=== PATIENT | female | born 1985 | race Caucasian/White ===

== ENCOUNTER 2022-05-06 08:15 | Outpatient (RCR) | payer BC, SELFPAY | END 2022-07-06 14:36 | disposition home or self-care (01) | PROVIDERS: Visit Provider Physician Assistant Medical | DX: S93.601S Unspecified sprain of right foot, sequela (principal); Z51.89 Encounter for other specified aftercare | CPT/HCPCS: 97162; 97530; 97535 ==

== ENCOUNTER 2023-07-18 11:03 | Emergency (ER) | payer BC, SELFPAY ==
[2023-07-18 11:32] VITALS: BP 136/82; PULSE 88; RESP 18; TEMP 36.9; O2SAT 99; BMI 19.0
[2023-07-18 12:26] LABS: PCR FLU A Negative PCR FLU A (Negative); PCR FLU B Negative PCR FLU B (Negative); PCR RSV Negative PCR RSV (Negative); SARS PCR* Negative SARS-CoV-2 (Negative)
--- NOTE | 2023-07-18 13:14 | XR_ITS ---
Final Report Patient: CECILIA WOLFE Facility:?[facility] Patient ID:?[id number] Site Patient ID:?[id number]. Site :?[id number] Study:?XRay Chest 2V-07/18/2023 1:46:39 PM Ordering Physician:?DR. POOLE Final Report: INDICATION: Headache. Migraine. Pain. COMPARISON: None TECHNIQUE: PA and lateral views of the chest were acquired FINDINGS: TUBES AND LINES: None. HEART AND MEDIASTINUM: The heart size is normal. The mediastinal contour appears normal for patient age. LUNGS AND PLEURAL SPACES: The lungs appear normal.The pleural spaces are unremarkable. OSSEOUS STRUCTURES: Scoliosis IMPRESSION: No evidence of active pulmonary disease. Scoliosis. Dictated by Vinicius Gutierrez MD @ 07/18/2023 2:16:03 PM (Electronic Signature)
[2023-07-18 14:00] VITALS: BP 128/87; PULSE 92; RESP 16; TEMP 36.8; O2SAT 99
--- NOTE | 2023-07-18 14:00 | ED.GENADULT ---
HPI - General Adult General Date Seen: 07/18/23 Chief complaint: Headache/Migraine Stated complaint: bodyaches,headache,sore throat, Time Seen by Provider: 07/18/23 12:43 Source: patient Mode of arrival: ambulatory Limitations: no limitations History of Present Illness HPI narrative: Patient is a 38-year-old female presenting to emergency department for multiple complaints. She states over the past week she has been having shortness of breath, body aches, headache, sore throat. Denies chest pain, abdominal pain, nausea/vomiting, weakness, numbness. Is not aware of any sick contacts. Symptoms have not been improving over the past week N/C states that back she may getting worse so she called to set up primary care appointment was told to come to the emergency department for evaluation. Has not had any fevers but has felt warm. Denies diarrhea or constipation. Denies having symptoms like this before. No other medical problems noted. Related Data Home Medications Medication Instructions Recorded Confirmed amitriptyline 25 mg tablet 25 mg PO QPM 07/18/23 07/18/23 Allergies Allergy/AdvReac Type Severity Reaction Status Date / Time ssri's Allergy Mild rash Uncoded 06/07/22 13:50 walnuts Allergy Mild burning Uncoded 07/18/23 11:38 and sores on tongue Review of Systems Status of ROS: Reports: 10 or more systems reviewed and unremarkable except as noted in History and below [facility] Medical History Lyme disease of inner ear ?A69.29 - Other conditions associated with Lyme disease (ICD-10) ?H83.8X9 - Other specified diseases of inner ear, unspecified ear (ICD-10) Right foot injury ?S99.921A - Unspecified injury of right foot, initial encounter (ICD-10) Family History Maternal Grandmother Heart disease Paternal Grandmother Stroke Family/Other High cholesterol Maternal Grandfather Diabetes Bladder cancer Father FH: mental illness Family/Other Otpcabq-Jjnit-Eqblp disease Social History Narrative: 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 Nonsmoker. No alcohol use. No concerns with safety or abuse. . Smoking Status: Never smoker Little interest or pleasure in doing things: not at all Feeling down, depressed, or hopeless: several days Exam Narrative: Exam Narrative: Const: Well-nourished, Well-developed, in mild distress Eyes: PERRL, no conjunctival injection, and symmetrical lids HENT: Atraumatic external nose and ears. Moist mucous membranes. Neck: Symmetric, trachea midline, No thyromegaly. CVS: RRR, No murmurs or gallops. Peripheral pulses 2+ and equal in all extremities RESP: Unlabored respiratory effort. Clear to auscultation bilaterally. GI: Nontender/Nondistended, No rebound or guarding. MSK:Extremities w/o deformity, Normal Active ROM Skin: Warm, Dry. No rashes or lesions. Neuro: Normal Muscle tone, No focal neurological deficits. Psych: Awake, Alert, & Oriented x3. Appropriate mood and affect. Const: Vital Signs, click to edit/add: Vital Signs - 24 hr 07/18/23 11:32 Temperature 98.5 F Pulse Rate [Right Pulse Oximeter] 88 Respiratory Rate 18 Blood Pressure [Ri ght Upper Arm] 136/82 Pulse Oximetry 99 Oxygen Delivery Me thod Room Air Course Vital Signs Vital signs: Initial Vital Signs Temperature 98.5 F 07/18/23 11:32 Temperature Source Temporal Artery Scan 07/18/23 11:32 Pulse Rate 88 07/18/23 11:32 Respiratory Rate 18 07/18/23 11:32 Blood Pressure 136/82 07/18/23 11:32 Blood Pressure Mean 100 07/18/23 11:32 Blood Pressure Position Sitting 07/18/23 11:32 Pulse Oximetry 99 07/18/23 11:32 Oxygen Delivery Method Room Air 07/18/23 11:32 Vital Signs Temperature 98.5 F 07/18/23 11:32 Pulse Rate 88 07/18/23 11:32 Respiratory Rate 18 07/18/23 11:32 Blood Pressure 136/82 07/18/23 11:32 Pulse Oximetry 99 07/18/23 11:32 Oxygen Delivery Method Room Air 07/18/23 11:32 Temperature 98.5 F 07/18/23 11:32 Pulse Rate 88 07/18/23 11:32 Respiratory Rate 18 07/18/23 11:32 Blood Pressure 136/82 07/18/23 11:32 Pulse Oximetry 99 07/18/23 11:32 Oxygen Delivery Method Room Air 07/18/23 11:32 Medical Decision Making MDM Narrative Medical decision making narrative: Patient is a 38-year-old female presenting to the emergency department for what sounds to be viral symptoms. COVID test flu/RSV test was ordered and were negative. She is having a much of the non concerning symptoms we will do a chest x-ray to rule out pneumonia. This was reviewed by myself and the radiologist showing no acute abnormalities. Patient had normal the is stable vital signs throughout her time emergency department and I do not believe further intervention is necessary. She is PERC negative so PE is very unlikely. Symptoms seem much more likely related to viral syndrome rather than ACS and and under not believe workup is necessary.Patient be discharged home she is agreeable to this plan. Lab Data Labs: Lab Results 07/18/23 Range/Units 11:39 SARS-CoV-2 (PCR) Negative SARS-CoV-2 (Negative) Influenza Type A (PCR) Negative PCR FLU A (Negative) Influenza Type B (PCR) Negative PCR FLU B (Negative) RSV (PCR) Negative PCR RSV (Negative) Imaging Data Chest x-ray: Radiologist's impression: No evidence of active pulmonary disease. Scoliosis. Dictated by Vinicius Gutierrez MD @ 07/18/2023 2:16:03 PM Discharge Plan Discharge Clinical Impression: Acute viral syndrome Patient Disposition: Home, Self-Care Condition: Stable Instructions: Viral Syndrome (ED) Additional Instructions: Return to emergency department for new or worsening symptoms. Considering the length of your symptoms has unlikely your still contagious at this time. Prescriptions: No Action amitriptyline 25 mg tablet 25 mg PO QPM Follow Up/Referrals: Ana Ro PA-C [Primary Care Provider] - Stand Alone Forms: [employer] Info Instructions
== END 2023-07-18 14:55 | disposition home or self-care (01) ==
PROVIDERS: Emergency Provider Student in an Organized Health Care Education/Training Program; PCP Physician Assistant
DX: B34.9 Viral infection, unspecified (principal)
CPT/HCPCS: 71046; 87631; 99282; 99283

== ENCOUNTER 2024-06-20 15:00 | Emergency (ER) | payer BC, SELFPAY ==
[2024-06-20] VITALS (8 sets, daily range): BP systolic 115–118; BP diastolic 74–80; PULSE 89–98; RESP 16–18; TEMP 37.6; O2SAT 99–100; BMI 19.8
--- OUTSIDE RECORDS SUMMARY | 2024-06-20 15:02 | XMS_ITS | Encounter Summary ---
Author Organization [facility] Address [address] [place] [id number] Care Team Providers Care Tobacco Drying Machine Operator Name Role Phone Unavailable Primary Care Provider Unavailabl e Reason for Visit * Reason Comments ERRONEOUS ENTRY Encounter Details Date Type Department Care Team (Late st Contact Info) Description 05/07/2024 Telephone [place] [facility] [place] [address] Elli Warren MD [address] [place] [address] ERRONEOUS ENTRY Social History Tobacco Use Types Packs/Day Years Used Date Smoking Tobacco: Never Passive Smoke Exposure: Never Smokeless Tobacco: Never Alcohol Use Standard Drinks/Week Comments Not Currently 0 (1 standard drink = 0.6 oz pur e alcohol) Sex and Gender Information Value Date Recorded Sex Assigned at Not on file Gender Identity Not on file Sexual Orientation Not on file documented as of this encounter Nursing Notes * Vaishnavi Finley - 05/07/2024 1:45 PM CST Billing Inquiry: Please contact the Business Office regarding clinic charges and questions on your billing statementat Please contact the for a detailed estimate of your rxj-[id number] costs for upcoming care services. For more information about billing and financial assistance, go to: [email or web address] FOOTBALL COACH documented in this encounter Plan of Treatment Not on file documented as of this encounter Visit Diagnoses Not on filedocumented in this encounter
--- OUTSIDE RECORDS SUMMARY | 2024-06-20 15:02 | XMS_ITS | Encounter Summary ---
Author Organization [facility] Address [address] [place] [address] Care Team Providers Care Heat Treater Helper Name Role Phone Unavailable Primary Care Provider Unavailabl e Reason for Visit * Reason Comments Prior Authorization For Procedure Encounter Details Date Type Department Care Team (Late st Contact Info) Description 05/07/2024 Telephone [place] [facility] [address] [place] [id number] Elli Warren MD [address] [place], [place] [id number] Prior Authorization For Procedure Social History Tobacco Use Types Packs/Day Years [...] as of this encounter Nursing Notes * Anna Hubbard RN - 05/08/2024 1:55 PM CST Returned call to pt. CPT codes given for scheduled procedure: 52967 for the excision of endometriosis and either 14927(uterus 250g or less) or 51776 (uterus greater than 250g) for TLH w/ BS. All questions answered. Mirtha has no further questions or concerns at this time. ALEXUS, RN AH SUPPLY CHAIN LOGISTICS MANAGER Triage 05/08/24 2:03 PM OTECHNICAL SPECIALIST * Anna Hubbard RN - 05/07/2024 2:52 PM CST Pt is scheduled for LAPAROSCOPIC HYSTERECTOMY; BILATERAL SALPINGECTOMY; POSSIBLE EXCISION OF ENDOMETRIOSIS; CYSTOSCOPY. Requests CPT codes to send to insurance. Routing encounter to Coding. SEGUNDO VAUGHAN AHOB/SPORTS COMMENTATOR Triage 05/07/24 2:53 PM OTECHNICAL SPECIALIST * Vaishnavi Finley - 05/07/2024 2:19 PM CST Prior Authorizations What prior authorization is needed? Patient is looking for the procedure code(s) for her procedure on 05/16/24. Insurance Carrier: [facility] , [facility] [id number] Pharmacy Insurance Carrier (if different from above): - For a medication PA, patient would like it filled at the pharmacy listed in Meds & Orders. Additional comments (related to the above concern): Preferred communication method: Phone Call. Is it okay to leave a detailed message on your voicemail? Yes or MyChart Is there anything else I can help you with today? OTECHNICAL SPECIALIST documented in this encounter Plan of Treatment Not on file documented as of this encounter Visit Diagnoses Not on filedocumented in this encounter
--- OUTSIDE RECORDS SUMMARY | 2024-06-20 15:02 | XMS_ITS | Encounter Summary ---
Author Organization [facility] Address [address] [address] Care Team Providers Care Real Estate Legal Assistant Name Role Phone Ankita Shannon MD Primary Care Provider [phone] Reason for Visit * Auth/Cert (Routine) Specialty Diagnoses / Procedures Referred By Adonis alejo Referred To Contact Diagnoses Pelvic pain in female . Procedures LAPAROSCOPIC HYSTERECTOMY; BILATERAL SALPINGECTOMY; POSSIBLE EXCISION OF ENDOMETRIOSIS; CYSTOSCOPY Referral ID Status Reason Start Date Expiration Date Visits Re quested Visits Authorized [id number] 1 1 Encounter Details Date Type Department Care Team (Latest Contact Info) Description 05/16/2024 5:53 AM MAINS AND SERVICE SUPERVISOR - 05/16/2024 1:30 PM MAINS AND SERVICE SUPERVISOR Hospital Encounter RH Operating Room [address] [place] [id number] Elli Warren MD [address] [place] [address] Pelvic pain in female Discharge Disposition: Home Social History Tobacco Use Types Packs/Day Years [...] on file documented as of this encounter Last Filed Vital Signs Vital Sign Reading Time Taken Comments Blood Pressure 119/82 05/16/2024 1:06 PM MAINS AND SERVICE SUPERVISOR Pulse 112 05/16/2024 1:06 PM MAINS AND SERVICE SUPERVISOR Temperature 36.8 C (98.3 F) 05/16/2024 1:06 PM MAINS AND SERVICE SUPERVISOR Respiratory Rate 16 05/16/2024 11:10 AM MAINS AND SERVICE SUPERVISOR Oxygen Saturation 97% 05/16/2024 1:06 PM MAINS AND SERVICE SUPERVISOR Inhaled Oxygen Concentration - - Weight 50.8 kg (112 lb) 05/16/2024 6:43 AM MAINS AND SERVICE SUPERVISOR Height 160 cm (5' 3) 05/16/2024 6:43 AM MAINS AND SERVICE SUPERVISOR Body Mass Index 19.84 05/16/2024 6:43 AM MAINS AND SERVICE SUPERVISOR documented in this encounter Discharge Instructions * Discharge Instr - Other Orders* Pascale Galeas RN - 05/16/2024 10:13 AM MAINS AND SERVICE SUPERVISOR CONTACT INFORMATION If it is after hours call the Careline at [phone]. [facility] Surgery: Please contact your clinic during regular business hours or in case of anEmergency dial 911. [place]: [phone] ANESTHESIA Today you received General/Minor Sedation: Rest in bed the day of surgery, then advance to normal activity the next day. Let's talk about what to expect after receiving anesthesia. After anesthesia, reactions are slow and some patients may become lightheaded or dizzy. The following safety precautions are recommended: Don't drink alcoholic beverages. Don't use any other drugs than those ordered by your physician. Don't drive a car or any other vehicle. Don't work with machinery or power tools. Be careful walking. Be extra careful walking up and down stairs. DANGER SIGNALS I should call my clinic if I experience any of the following: Temperature higher than 101 degrees Fahrenheit Redness that has spread Persistent bleeding Green/yellow/infected, foul smelling drainage from incision site Reaction to new medications Severe pain Swelling S AND SERVICE SUPERVISOR * Discharge Instr - Non RX Meds* Pascale Galeas RN - 05/16/2024 11:56 AM MAINS AND SERVICE SUPERVISOR You were given 15mg IV Toradol during your procedure at 9:30am. Toradol is in the same family as Ibuprofen therefore, Do Not start Ibuprofen until after 3:30pm. S AND SERVICE SUPERVISOR documented in this encounter Medications at Time of Discharge Medication Sig Dispensed Refills Start Date End Date acetaminophen (TYLENOL) 325 MG tablet Take 1-2 Tablets (325-650 mg) by mouth every 6 hours as needed for Pain. Maximum of 12 tablets per day 100 Tablet 05/16/2024 amitriptyline (ELAVIL) 75 MG tablet Take 1 Tablet (75 mg) by mouth daily. docusate sodium (COLACE) 100 MG capsule Take 1 Capsule (100 mg) by mouth two times a day for the first week postop, to avoid constipation. Take as needed after one week. 100 Capsule 05/16/2024 famotidine (PEPCID) 40 MG tablet Take 1 Tablet (40 mg) by mouth. 04/09/2024 ondansetron (ZOFRAN-ODT) [address] 1 Tablet (4 mg) under tongue every 8 hours as needed. 04/02/2024 oxyCODONE (ROXICODONE) 5 MG immediate release tablet Take 1 Tablet (5 mg) by mouth every 6 hours as needed for pain not relieved by acetaminophen. 8 Tablet 05/16/[address] (PROTONIX) 40 MG tablet Take 1 Tablet (40 mg) by mouth. 04/09/2024 senna (SENNA LAXATIVE) 8.6 MG tablet Take 1 Tablet by mouth daily as needed for Constipation. 40 Tablet 05/16/2024 sucralfate (CARAFATE) 1 g tablet Take 1 Tablet (1 g) by mouth 4 times a day. vitamin b complex-c (AKA SURBEX-T) capsule Take 1 Capsule by mouth daily. documented as of this encounter Progress Notes * Elli Warren MD - 05/16/2024 1:50 PM CST LITHARGE SUPERVISOR Postop Note Mirtha is feeling better than expected after surgery today. Feels ready to be home for recovery. No nausea or difficulty ambulating. BP 119/82 Pulse (!) 112 Temp 98.3 ??F (36.8 ??C) (Oral) Resp 16 Ht 5' 3 (1.6 m) Wt 50.8 kg (112 lb) SpO2 97% BMI 19.84 kg/m?? Well appearing, dressed and sitting in chair Discussed findings: stage I endometriosis, with 2-3 lesions visible on bilateral uterosacral ligaments and overlying ureter (not removed due to proximity of ureter). Discharge home for same-day surgery recovery. Has tylenol for pain control and PRN oxycodone (avoiding NSAIDs due to gastritis). Daily colace, with PRN senna. Follow up by phone next week with pathology results. Has in person f/u in 4 weeks. Elli Warren MD S AND SERVICE SUPERVISOR documented in this encounter Procedure Notes * Elli Warren MD - 05/16/2024 11:14 AM CST [facility] Operative Note Surgery Date: 05/16/2024 Surgeons and Role: * Elli Warren MD - Primary * Leticia Zepeda MD - Assisting * Wil Moya DO - Resident - Assisting Pre-op Diagnosis: Severe dysmenorrhea Abnormal uterine bleeding Post-op Diagnosis: Same Same Procedures with associated lateralities: Procedure(s) (LRB): LAPAROSCOPIC HYSTERECTOMY; BILATERAL SALPINGECTOMY; CYSTOSCOPY (Bilateral) EBL: 10ml IV fluids: 800 ml Urine output: 225 ml Specimens: ID Type Source Tests Collected by Time Destination 1 : Right Fallopian tube Tissue Fallopian Tube, right SURGICAL PATHOLOGY Elli Warren MD 05/16/2024 0846 2 : Left Fallopian Tube Tissue Fallopian Tube, left SURGICAL PATHOLOGY Elli Warren MD 05/16/2024 0846 3 : uterus and cervix Tissue Uterus SURGICAL PATHOLOGY Elli Warren MD 05/16/2024 0913 Complications / Findings: normal external genitalia, vagina and cervix. Normal uterus, fallopian tubes and ovaries. Endometriosis lesions present on bilateral uterosacral ligaments. Hemostatic cuff and pedicles at end of case. Cystoscopy with bilateral Uos jets. Indications: Mirtha Garcia is a 39 y.o. with heavy menstrual bleeding, and concerns for endometriosis. Dysmenorrhea symptoms were somewhat improved with oral contraceptives, but were still interferingwith work. Due to gastritis and severe reflux, oral NSAIDs were no longer an option to manage menstrual pain. Diagnostic laparoscopy was discussed. After counseling, the patient opted for definitive management with total laparoscopic hysterectomy and bilateral salpingectomy, as well as excision of endometriosis lesions if present. The risks, benefits, and alternatives were discussed with the patient, and she desired to proceed. Consent form and hysterectomy acknowledgement form signed. Findings: Exam under anesthesia revealed a normal sized, retroverted, mobile uterus. No adnexal masses palpable. On laparoscopy, there was no evidence of injury from abdominal entry. Normal upper abdominal survey. Normal uterus. Normal ovaries and fallopian tubes bilaterally. Endometriosis lesions present on bilateral uterosacral ligaments. Cystoscopy revealed intact bladder dome without injury or sutures and efflux from bilateral ureteral orifices. Surgical sites hemostatic at end of case. Procedure details: The patient was brought to the operating room where general anesthesia was induced with SCDs in place for DVT prophylaxis. She was placed in the dorsal lithotomy position with feet in David stirrups.Exam under anesthesia was performed with the findings noted above. The patient was prepped and draped in the normal sterile fashion. A surgical time out was completed. A klein catheter was placed. A sterile speculum was placed in the vagina and the cervix visualized. The cervix was serially dilated. The V-Care uterine manipulator was placed in the standard fashion. Attention was then turned to the abdomen. The umbilicus was everted, and a 5 mm stab incision was made. A 5 mm trocar was placed using the VisiPort under direct visualization. The abdomen was then insufflated to a maximum pressure of 15 mmHg. The laparoscope was placed, and survey of the abdomen revealed the findings noted above. No trauma from entry was noted. The patient was placed in steep Trendelenburg position and two additional ports were placed in the left and right lower quadrants of 5 mm and 5 mm respectively under direct visualization. Using an atraumatic grasper the bowels were swept out of the pelvis. Bilateral ureters were identified and noted to be well away from the area of planned dissection. Focus was directed to the right side of the pelvis. The right fallopian tube was resected to the uterine cornua by taking serial bites along the underlying mesosalpinx with the Ligasure. The round ligament was transected using the Ligasure and the anterior leaf of the broad ligament was transected medially to the level of the bladder reflection. The right uteroovarian ligament was transected withthe Ligasure and the broad ligament was taken down to the level of the uterine artery. Focus was turned to the left side of the pelvis. The left fallopian tube was resected to the uterine cornua by taking serial bites along the underlying mesosalpinx with the Ligasure. The round ligament was transected using the Ligasure and the anterior leaf of the broad ligament was transected medially. The bladder flap was developed by dissecting the bladder away from the lower uterine segment and cervix using with Ligasure. The left uteroovarian ligament was transected with the Ligasure and the broad ligament was taken down to the level of the uterine artery. The uterine arteries were skeletonized, cauterized, and transected bilaterally. The uterine arteries were then further dissected away from of the cervix with the Ligasure device by transecting the cardinal ligaments from the cervix to a level just past the cervical cup. Colpotomy was performed with monopolar cautery. The detached cervix, uterus, bilateral fallopian tubes were removed from the vagina. A vaginal occluder balloon was placed in the vagina to maintain pneumoperitoneum. The blood was suctioned from the pelvic floor and the the vaginal cuff was closed with V-Loc suture using the EndoStitch suture device. All pedicles were reviewed and noted to be hemostatic. The klein catheter was removed and a cystoscopy was performed. Efflux was seen from bilateral ureteral orifices and there was no evidence of bladder injury. The cystoscope was removed and the klein was not replaced. Attention was turned back to the abdomen. The fascia of the 10 mm port site was closed with 0 Vicryl suture using the Pawan-Jarad device. All instruments were removed from the abdominal cavity and the abdomen deflated. The skin incisions were re-approximated with 4-0 Monocryl and sterile dressings applied. The patient tolerated the procedure well. All needle and sponge counts were correct. Patient was successfully extubated. There were no complications with the procedure. Dr. Zepeda was present to assist as no qualified resident was available. Dr. Zepeda assisted with placement of uterine manipulator, visualization during the surgical procedure, and the cystoscopy. Elli Warren MD S AND SERVICE SUPERVISOR * Wil Moya DO - 05/16/2024 9:37 AM CST [facility] Brief Operative Progress Note Surgery Date: 05/16/2024 Surgeons and Role: * Elli Warren MD - Primary * Leticia Zepeda MD - Assisting * Wil Moya DO - Resident - Assisting * No visitors entered * Pre-op Diagnosis: * Pelvic pain in female [R10.2] Post-op Diagnosis: Post-Op Diagnosis Codes: * Pelvic pain in female [R10.2] Procedures with associated lateralities: Procedure(s) (LRB): LAPAROSCOPIC HYSTERECTOMY; BILATERAL SALPINGECTOMY; CYSTOSCOPY (Bilateral) EBL: 10 Specimens: ID Type Source Tests Collected by Time Destination 1 : Right Fallopian tube Tissue Fallopian Tube, right SURGICAL PATHOLOGY Elli Warren MD 05/16/2024 0846 2 : Left Fallopian Tube Tissue Fallopian Tube, left SURGICAL PATHOLOGY Elli Warren MD 05/16/2024 0846 3 : uterus and cervix Tissue Uterus SURGICAL PATHOLOGY Elli Warren MD 05/16/2024 0913 Complications / Findings: normal external genitalia, vagina and cervix. Normal uterus, fallopian tubes and ovaries. Endometriosis lesions present on bilateral uterosacral ligaments. Hemostatic cuff and pedicles at end of case. Cystoscopy with bilateral Uos jets. Wil Moya D.O. M.A. N TOOTH INSPECTOR PGY-3 05/16/24 9:38 AM S AND SERVICE SUPERVISOR documented in this encounter Plan of Treatment Not on file documented as of this encounter Procedures Procedure Name Priority Date/Time Associated Diagnosis Comments SURGICAL PATHOLOGY Routine 05/16/2024 8: 46 AM MAINS AND SERVICE SUPERVISOR Pelvic pain in female LAPAROSCOPIC HYSTERECTOMY (SDEX) Same Day Recovery 05/16/2024 7:30 AM MAINS AND SERVICE SUPERVISOR Pelvic pain in female POCT URINE Routine 05/16/2024 7:03 AM MAINS AND SERVICE SUPERVISOR GLUCOSE, WHOLE BLOOD POCT Routine 05/16/2024 6:59 AM MAINS AND SERVICE SUPERVISOR BT SECOND DRAW Routine 05/16/2024 6:49 AM MAINS AND SERVICE SUPERVISOR TYPE AND SCREEN STAT 05/16/2024 6:41 AM MAINS AND SERVICE SUPERVISOR ANTIBODY SCREEN STAT 05/16/2024 6:41 AM MAINS AND SERVICE SUPERVISOR BLOOD TYPE STAT 05/16/2024 6:41 AM MAINS AND SERVICE SUPERVISOR HEMOGLOBIN, BLOOD STAT 05/16/2024 6:4 1 AM MAINS AND SERVICE SUPERVISOR documented in this encounter Results * Surgical Path (05/16/2024 8:46 AM MAINS AND SERVICE SUPERVISOR) Case Report Surgical Pathology Case: [id number] Authorizing Provider: Elli Warren MD Collected: 05/16/2024 0846 Ordering Location: Operating Room Received: 05/16/2024 0919 Pathologist: Radha Simms MD Specimens: A) - Fallopian Tube, right, Right Fallopian tube B) - Fallopian Tube, left, Left Fallopian Tube C) - Uterus, uterus and cervix 05/21/2024 3:34 PM [facility] FINAL DIAGNOSIS A. Fallopian tube, right, right salpingectomy: Fallopian tube with no diagnostic abnormality B. Fallopian tube, left, left salpingectomy: Fallopian tube with benign paratubal cyst C. Uterus and cervix, hysterectomy: Uterus with inactive endometrium, benign endometrial polyp, leiomyoma, and changes suggestive of focal serosal endometriosis Cervix with Nabothian cysts 05/21/2024 3:34 PM [facility] Clinical Information Pelvic pain in female 05/21/2024 3:34 PM [facility] Microscopic Description Microscopic examination is performed. 05/21/2024 3:34 PM [facility] Gross Description A: The specimen is received in formalin and labeled with the patient's name and Fallopian Tube, right, Right Fallopian tube. The specimen consists of a 4.2 cm in length and 0.5 cm in diameter portion of fallopian tube and fimbria. The serosa is brink-pink, smooth and glistening. The cut surfaces are brink-pink with a patent, stellate lumen. No masses or lesions are identified. Senior Technical Manager sections including the longitudinally bisected fimbria and cross sections of fallopian tube are submitted in one cassette. MD Kumar: The specimen is received in formalin and labeled with the patient's name and Fallopian Tube, left, Left Fallopian Tube. The specimen consists of a 5.6 cm in length and 0.5 cm in diameter portion of fallopian tube and fimbria. The serosa is brink-pink, smooth and glistening. The cut surfaces are brink-pink with a patent, stellate lumen. No masses or lesions are identified. Senior Technical Manager sections including the longitudinally bisected fimbria and cross sections of fallopian tube are submitted in one cassette. C: Intact uterus with cervix RECEIVED: In formalin and labeled with the patient's name SPECIMEN SOURCE: Uterus, uterus and cervix WEIGHT: 77 g DIMENSIONS: 8.2 (cervix to fundus) x 5.7 (cornu to cornu) x 3.3 (anterior to posterior) cm ADNEXA: Not present SEROSA: Purple pink-red, smooth and glistening with a 2.6 x 1.8 cm pale pink, glistening, smooth patch on the fundus/posterior aspect (inked green) ECTOCERVIX: 2.9 x 2.8 cm, pink-red, partially smooth, partially roughened with a 0.3 cm circular os. ENDOCERVICAL CANAL: 2.5 cm in length pink-brink, with a normal herringbone appearance ENDOMETRIUM: 3.6 x 4.3 cm pink-brink, glistening, less than 0.1 cm thick, there are 3 pink-brink polypoid portions of tissue located within the body of the anterior, body and fundus of the posterior aspects, 0.1-0.3 cm in greatest dimension. MYOMETRIUM: [place]-brink, finally trabeculated, 2.1 cm thick LEIOMYOMA(TA): There is a 0.3 cm in greatest dimension subserosal nodule TISSUE SUBMISSION: Senior Technical Manager sections are submitted in 9 cassettes. 1. Anterior cervix (12:00) 2. Posterior cervix (6:00) 3. Anterior endomyometrium interface with polyp 4. Posterior endomyometrium interface with polyp 5. Senior Technical Manager nodule 6. Additional posterior fundal polyp 7. Senior Technical Manager serosal surface with smooth patch on posterior aspect 8. 3:00 cervix 9. 9:00 cervix. 05/21/2024 3:34 PM MAINS AND SERVICE SUPERVISOR [facility] Embedded Images 05/21/2024 3:34 PM [facility] Tissue ENTIRE RIGHT FALLOPIAN TUBE / Unknown 05/16/2024 8:46 AM MAINS AND SERVICE SUPERVISOR 05/16/2024 9:19 AM MAINS AND SERVICE SUPERVISOR Tissue specimen (specimen) ENTIRE LEFT FALLOPIAN TUBE / Unknown 05/16/2024 8:46 AM MAINS AND SERVICE SUPERVISOR 05/16/2024 9:19 AM MAINS AND SERVICE SUPERVISOR Tissue specimen (specimen) UTERINE STRUCTURE / Unknown 05/16/2024 9:13 AM MAINS AND SERVICE SUPERVISOR 05/16/2024 9:19 AM MAINS AND SERVICE SUPERVISOR Elli Warren MD LAB PATHOLOGY Performing Organization Address [facility] Co de Phone Number [address] * POCT urine (05/16/2024 7:03 AM MAINS AND SERVICE SUPERVISOR) Urine Test - POC Negative Negative POCT Control Line Present, Clear Background - Internal control Yes POCT Cartridge Lot# [id number] POCT Urine 05/16/2024 7:03 AM MAINS AND SERVICE SUPERVISOR Elli Warren MD ET POINT OF CARE EULA T ENTER/EDIT ORDERABLES Performing Organization Address [facility] de Phone Number POCT * Glucose, Whole Blood POCT (05/16/2024 6:59 AM MAINS AND SERVICE SUPERVISOR) Glucose, Whole Blood 74 70 - 180 mg/dL 05/16/2024 7:01 AM [facility] Performing Location [facility] PSCU 05/16/2024 7:01 AM [facility] Blood 05/16/2024 6:59 AM MAINS AND SERVICE SUPERVISOR 05/16/2024 7:01 AM MAINS AND SERVICE SUPERVISOR Elli Warren MD LAB_1 Performing Organization Address [facility] Co de Phone Number [address] * Blood Type second draw (05/16/2024 6:49 AM MAINS AND SERVICE SUPERVISOR) ABO B 05/16/2024 7:25 AM MAINS AND SERVICE SUPERVISOR [facility] Positive 05/16/2024 7:25 AM MAINS AND SERVICE SUPERVISOR [facility] Blood Venipuncture / Unknown 05/16/2024 6:49 AM MAINS AND SERVICE SUPERVISOR 05/16/2024 6:56 AM MAINS AND SERVICE SUPERVISOR Sandra King MD LAB_1 Performing Organization Address [facility] de Phone Number [facility] [address] * Antibody Screen (05/16/2024 6:41 AM MAINS AND SERVICE SUPERVISOR) Antibody Screen Interpretation Negative 05/16/2024 7:32 AM MAINS AND SERVICE SUPERVISOR [facility] Blood Venipuncture / Unknown 05/16/2024 6:41 AM MAINS AND SERVICE SUPERVISOR 05/16/2024 6:53 AM MAINS AND SERVICE SUPERVISOR Elli Warren MD LAB_1 Performing Organization Address [facility] Phone Number [facility] [address] [place] [address] * Blood Type (05/16/2024 6:41 AM MAINS AND SERVICE SUPERVISOR) ABO B 05/16/2024 7:32 AM MAINS AND SERVICE SUPERVISOR [facility] Positive 05/16/2024 7:32 AM MAINS AND SERVICE SUPERVISOR [facility] Blood Venipuncture / Unknown 05/16/2024 6:41 AM MAINS AND SERVICE SUPERVISOR 05/16/2024 6:53 AM MAINS AND SERVICE SUPERVISOR Elli Warren MD LAB_1 Performing Organization Address [facility] Co de Phone Number [facility] [address] [place] [address] * Hemoglobin (05/16/2024 6:41 AM MAINS AND SERVICE SUPERVISOR) Hemoglobin 15.1 12.0 - 15.5 g/dL 05/16/2024 6:58 AM MAINS AND SERVICE SUPERVISOR [facility] Blood Venipuncture / Unknown 05/16/2024 6:41 AM MAINS AND SERVICE SUPERVISOR 05/16/2024 6:53 AM MAINS AND SERVICE SUPERVISOR Elli Warren MD LAB_[address] [address], [facility] documented in this encounter Visit Diagnoses Diagnosis Pelvic pain in female- Primary Unspecified symptom associated with female genital organs * Plan of Care - Pascale Galeas RN - 05/16/2024 2:22 PM CST I completed a full assessment and assessments as ordered and per policy on this patient during my work shift. Reassessments completed during my work shift are unchanged unless documented. Pascale Galeas RN 05/16/2024, 2:22 PM S AND SERVICE SUPERVISOR * Plan of Care - Neelima Nieves RN - 05/16/2024 10:49 AM CST I completed a full assessment and assessments as ordered and per policy on this patient during my work shift. Reassessments completed during my work shift are unchanged unless documented. S AND SERVICE SUPERVISOR documented in this encounter Admitting Diagnoses Diagnosis Pelvic pain in female Unspecified symptom associated with female genital organs documented in this encounter Administered Medications Inactive Administered Medications - up to 3 most recent administrations Medication Order MAR Action Action Date Dose Rate Site acetaminophen (TYLENOL) tablet 650 mg 650 mg, Oral, Q4H PRN, Pain, Starting on Samia 05/16/24 at 0941, Until Samia 05/16/24 at 2321, For 2 doses, Give acetaminophen first for pain. Acetaminophen may be given WITH other pain medications as adjunct for pain relief. Do not give two acetaminophen containing medications within 4 hours of each other. PACU use only, PACU (only) BUPivacaine 0.25% PF (2.5 mg/mL) (SENSORCAINE) injection ONCE PRN, Starting on Samia 05/16/24 at 0839, Until Samia 05/16/24 at 2321, Intra-op Given 05/16/2024 9:40 AM MAINS AND SERVICE SUPERVISOR 19 mL Wound Site calcium carbonate (TUMS) chewable tablet 1,000 mg 1,000 mg, Oral, ONCE, On Samia 05/16/24 at 1300, For 1 dose, Each tablet provides 200 mg elemental calcium Given 05/16/2024 1:05 PM MAINS AND SERVICE SUPERVISOR 1,000 mg dexAMETHasone (DECADRON) injection 4-8 mg 4-8 mg, Intravenous, Q15MIN PRN, Other, nausea/vomiting, Starting on Samia 05/16/24 at 0941, Until Samia 05/16/24 at 2321, For 2 doses, Anti-emetic Step 2: Dexamethasone 4-8 mg IV If not given in operating room. (Use in PACU only). If medication given in OR may give up to 8 mg total dose (including intra-operative dose) If nausea not resolved in 15 minutes go to next step medication if ordered otherwise proceed to next antiemetic step.. PACU use only, PACU (only) dextrose 50% (D50) injection 25-50 g 25-50 g, Intravenous, PRN BASED ON BLOOD SUGAR, Blood Sugar <, for glucose 70 mg/dL or less- contact anesthesia for dosing instructions, Starting on Samia 05/16/24 at 0539, Contact anesthesia for dosing instructions., Pre-op ePHEDrine injection 25 mg 25 mg, Intramuscular, ONCE PRN, Other, nausea/vomiting, Starting on Samia 05/16/24 at 0941, For 1 dose, Anti-emetic Step 3: hydroxyzine + ephedrine: use if Step 1-2 medications not effective. If Nausea/vomiting not resolved in 15 minutes, go to next step medications if ordered. (PACU use only), PACU (only) fentaNYL (SUBLIMAZE) injection 25-50 mcg 25-50 mcg, Intravenous, [id number], Pain, Starting on Samia 05/16/24 at 0941, Until Samia 05/16/24 at 2321, PACU USE ONLY Use fentanyl as first line short acting agent for treatment of acute post operative pain. Start with lower dose and adjust subsequent dosing based on patient response. May use for breakthrough pain in conjunction with a longer acting agent (hydromorphone or morphine). Respiratory rate must be greater than 10 to administer medication. Total PACU fentanyl dose not to exceed 200 mcg. , PACU (only) Given 05/16/2024 10:40 AM MAINS AND SERVICE SUPERVISOR 25 mcg Given 05/16/2024 10:20 AM MAINS AND SERVICE SUPERVISOR 25 mcg hydrALAZINE (APRESOLINE) injection 5 mg 5 mg, Intravenous, Q10MIN PRN, Blood Pressure >, Starting on Samia 05/16/24 at 0941, Until Samia 05/16/24 at 2321, Must call anesthesia before initiating medication. Give q 10 minutes PRN up to 20 mg (PACU use only), PACU (only) HYDROmorphone (DILAUDID) injection 0.2-0.3 mg 0.2-0.3 mg, Intravenous, Q10MIN PRN, Pain, Starting on Samia 05/16/24 at 0941, Until Samia 05/16/24 at 2321, PACU USE ONLY Use hydromorphone if fentanyl alone is not adequately managing pain. Start with lower dose and adjust subsequent dosing based on patient response. May use fentanyl for breakthrough pain in conjunction with hydromorphone dosing. Respiratory rate must be greater than 10 to administer medication. Total PACU hydromorphone dose not to exceed 2 mg, PACU (only) Given 05/16/2024 10:20 AM MAINS AND SERVICE SUPERVISOR 0.2 mg hydrOXYzine pamoate (VISTARIL) capsule 25 mg 25 mg, Oral, ONCE PRN, Nausea/Vomiting, Starting on Samia 05/16/24 at 0941, Until Samia 05/16/24 at 2321, For 1 dose, Anti-emetic Step 3: hydroxyzine + ephedrine: use if Step 1-2 medications not effective. If Nausea/vomiting not resolved in 15 minutes, go to next step medications if ordered. (PACU use only), PACU (only) insulin lispro (HUMALOG; ADMELOG) injection vial 2-4 Units 2-4 Units, Subcutaneous, PRN BASED ON BLOOD SUGAR, Blood Sugar >, Starting on Samia 05/16/24 at 0539, Blood Glucose 70 mg/dL or less, treat for hypoglycemia and notify Anesthesia, Blood Glucose less than 150 mg/dL give 0 units Blood Glucose 151-200 mg/dL give 2 units Blood Glucose 201-250 mg/dL give 3 units Blood Glucose greater than 251 mg/dL give 4 units and notify Anesthesia. If patient receives humalog insulin, recheck POCT Glucose every 2 hours and treat using humALOG sliding scale until transported to OR., Pre-op insulin lispro (HUMALOG; ADMELOG) injection vial 2-4 Units 2-4 Units, Subcutaneous, PRN BASED ON BLOOD SUGAR, Blood Sugar >, Starting on Samia 05/16/24 at 0941, PACU PATIENTS ONLY Blood Sugar 151-199 mg/dL: give 2 units, Blood Sugar 200-250 mg/dL: give 3 units, Blood Sugar greater than 250 mg/dL: give 4 units and call anesthesia, PACU (only) labetalol (NORMODYNE) injection 5 mg 5 mg, Intravenous, [id number], Blood Pressure >, Hypertension SBP greater than 160, Starting on Samia 05/16/24 at 0941, Until Samia 05/16/24 at 2321, Must call anesthesia before initiating medication. Give q 5 minutes PRN up to 25 mg. (PACU use only), PACU (only) lactated ringers infusion Intravenous, at 125 mL/hr, CONTINUOUS, Starting on Samia 05/16/24 at 0600, Change to saline lock when PO intake is adequate., Pre-op lubricant (SURGILUBE/KY JELLY) gel ONCE PRN, Starting on Samia 05/16/24 at 0839, Intra-op Given 05/16/2024 8:39 AM MAINS AND SERVICE SUPERVISOR 15 g Wound Site metoprolol tartrate (LOPRESSOR) injection 1-2 mg 1-2 mg, Intravenous, [id number], Other, htn, Starting on Samia 05/16/24 at 0941, Until Samia 05/16/24 at 2321, Must call anesthesia before initiating medication. Give q 5 minutes PRN up to 10 mg Hold for HR < 50 (PACU use only), PACU (only) oxyCODONE (ROXICODONE) 1 MG/1ML solution 5 mg 5 mg, Oral, ONCE PRN, Pain, Moderate to Severe Pain, Starting on Samia 05/16/24 at 0709, Until Samia 05/16/24 at 2321, For 1 dose, Give for pain not managed by non-opioid medications or other interventions. Use if unable to swallow tablets. oxyCODONE (ROXICODONE) immediate release tablet 5 mg 5 mg, Oral, ONCE PRN, Pain, Moderate to Severe pain, Starting on Samia 05/16/24 at 0709, Until Samia 05/16/24 at 2321, For 1 dose, Give for pain not managed by non-opioid medications or other interventions. Use if able to swallow tablets oxyCODONE-acetaminophen (PERCOCET) 5-325 MG per tablet 1-2 Tablet 1-2 Tablet, Oral, Q4H PRN, Pain, Starting on Samia 05/16/24 at 0945, Until Samia 05/16/24 at 2321, q4h prn, PACU & Post-op Given 05/16/2024 10:30 AM MAINS AND SERVICE SUPERVISOR 1 Tablet documented in this encounter Active and Recently Administered Medications Times are shown in MAINS AND SERVICE SUPERVISOR. Scheduled Medication Order 05/14/2024 05/15/2024 05/16/2024 calcium carbonate (TUMS) chewable tablet 1,000 mg (COMPLETED) 1,000 mg, Oral, ONCE, On Samia 05/16/24 at 1300, For 1 dose, Each tablet provides 200 mg elemental calcium 1305 (Given - Provid er: Keshav Hull V RN) ceFAZolin (ANCEF) 2 g in sterile water 20 mL IV push (COMPLETED) 2 g, Intravenous, Administer over 5 Minutes, ONCE (NON-SCHEDULED), Starting on Samia 05/16/24 at 0539, For 1 dose, For patient weight less than or equal to 119 kg PRE-OP ANTIBIOTIC Dilute 2 gram vial with 19.2 mL sterile water for slow IV push over 5 minutes for adults., Pre-op 0805 (Started - Prov ider: Edison Cruz APRN, LAURA) metroNIDAZOLE (FLAGYL) 500 mg in sodium chloride 100 mL IVPB premix (COMPLETED) 500 mg, Intravenous, Administer over 30 Minutes, ONCE, On Samia 05/16/24 at 0600, For 1 dose, Pre-op 0800 (Given - Provid er: Edison Cruz APRN, LAURA) Continuous Medication Order 05/14/2024 05/15/2024 05/16/2024 lactated ringers infusion Intravenous, at 125 mL/hr, CONTINUOUS, Starting on Samia 05/16/24 at 0600, Change to saline lock when PO intake is adequate., Pre-op 0600 (Due) PRN Medication Order 05/14/2024 05/15/2024 05/16/2024 acetaminophen (TYLENOL) tablet 650 mg 650 mg, Oral, Q4H PRN, Pain, Starting on Samia 05/16/24 at 0941, Until Samia 05/16/24 at 2321, For 2 doses, Give acetaminophen first for pain. Acetaminophen may be given WITH other pain medications as adjunct for pain relief. Do not give two acetaminophen containing medications within 4 hours of each other. PACU use only, PACU (only) BUPivacaine 0.25% PF (2.5 mg/mL) (SENSORCAINE) injection ONCE PRN, Starting on Samia 05/16/24 at 0839, Until Samia 05/16/24 at 2321, Intra-op 0940 (Given - Provid er: Elli Warren MD - Comment: Dispensed to sterile field) dexAMETHasone (DECADRON) injection 4-8 mg 4-8 mg, Intravenous, Q15MIN PRN, Other, nausea/vomiting, Starting on Samia 05/16/24 at 0941, Until Samia 05/16/24 at 2321, For 2 doses, Anti-emetic Step 2: Dexamethasone 4-8 mg IV If not given in operating room. (Use in PACU only). If medication given in OR may give up to 8 mg total dose (including intra-operative dose) If nausea not resolved in 15 minutes go to next step medication if ordered otherwise proceed to next antiemetic step.. PACU use only, PACU (only) dextrose 50% (D50) injection 25-50 g 25-50 g, Intravenous, PRN BASED ON BLOOD SUGAR, Blood Sugar <, for glucose 70 mg/dL or less- contact anesthesia for dosing instructions, Starting on Samia 05/16/24 at 0539, Contact anesthesia for dosing instructions., Pre-op ePHEDrine injection 25 mg(Linked Group 1) 25 mg, Intramuscular, ONCE PRN, Other, nausea/vomiting, Starting on Samia 24 at 0941, For 1 dose, Anti-emetic Step 3: hydroxyzine + ephedrine: use if Step 1-2 medications not effective. If Nausea/vomiting not resolved in 15 minutes, go to next step medications if ordered. (PACU use only), PACU (only) fentaNYL (SUBLIMAZE) injection 25-50 mcg 25-50 mcg, Intravenous, [id number], Pain, Starting on Samia 24 at 0941, Until Samia 24 at 2321, PACU USE ONLY Use fentanyl as first line short acting agent for treatment of acute post operative pain. Start with lower dose and adjust subsequent dosing based on patient response. May use for breakthrough pain in conjunction with a longer acting agent (hydromorphone or morphine). Respiratory rate must be greater than 10 to administer medication. Total PACU fentanyl dose not to exceed 200 mcg. , PACU (only) 1020 (Given - Provid er: Ирина Jensen RN)1040 (Given - Provider: Neelima Nieves RN) hydrALAZINE (APRESOLINE) injection 5 mg 5 mg, Intravenous, Q10MIN PRN, Blood Pressure >, Starting on Samia 12/24 at 0941, Until Samia 12 at 2321, Must call anesthesia before initiating medication. Give q 10 minutes PRN up to 20 mg (PACU use only), PACU (only) HYDROmorphone (DILAUDID) injection 0.2-0.3 mg 0.2-0.3 mg, Intravenous, Q10MIN PRN, Pain, Starting on Samia 24 at 0941, Until Samia 1224 at 2321, PACU USE ONLY Use hydromorphone if fentanyl alone is not adequately managing pain. Start with lower dose and adjust subsequent dosing based on patient response. May use fentanyl for breakthrough pain in conjunction with hydromorphone dosing. Respiratory rate must be greater than 10 to administer medication. Total PACU hydromorphone dose not to exceed 2 mg, PACU (only) 1020 (Given - Provid er: Ирина Jensen RN) hydrOXYzine pamoate (VISTARIL) capsule 25 mg(Linked Group 1) 25 mg, Oral, ONCE PRN, Nausea/Vomiting, Starting on Samia 05/16/24 at 0941, Until Samia 1224 at 2321, For 1 dose, Anti-emetic Step 3: hydroxyzine + ephedrine: use if Step 1-2 medications not effective. If Nausea/vomiting not resolved in 15 minutes, go to next step medications if ordered. (PACU use only), PACU (only) insulin lispro (HUMALOG; ADMELOG) injection vial 2-4 Units 2-4 Units, Subcutaneous, PRN BASED ON BLOOD SUGAR, Blood Sugar >, Starting on Samia 05/16/24 at 0539, Blood Glucose 70 mg/dL or less, treat for hypoglycemia and notify Anesthesia, Blood Glucose less than 150 mg/dL give 0 units Blood Glucose 151-200 mg/dL give 2 units Blood Glucose 201-250 mg/dL give 3 units Blood Glucose greater than 251 mg/dL give 4 units and notify Anesthesia. If patient receives humalog insulin, recheck POCT Glucose every 2 hours and treat using humALOG sliding scale until transported to OR., Pre-op insulin lispro (HUMALOG; ADMELOG) injection vial 2-4 Units 2-4 Units, Subcutaneous, PRN BASED ON BLOOD SUGAR, Blood Sugar >, Starting on Samia 05/16/24 at 0941, PACU PATIENTS ONLY Blood Sugar 151-199 mg/dL: give 2 units, Blood Sugar 200-250 mg/dL: give 3 units, Blood Sugar greater than 250 mg/dL: give 4 units and call anesthesia, PACU (only) labetalol (NORMODYNE) injection 5 mg 5 mg, Intravenous, [id number], Blood Pressure >, Hypertension SBP greater than 160, Starting on Samia 05/16/24 at 0941, Until Samia 05/16/24 at 2321, Must call anesthesia before initiating medication. Give q 5 minutes PRN up to 25 mg. (PACU use only), PACU (only) lubricant (SURGILUBE/KY JELLY) gel ONCE PRN, Starting on Samia 05/16/24 at 0839, Intra-op 0839 (Given - Provid er: Elli Warren MD - Comment: Dispensed to field) metoprolol tartrate (LOPRESSOR) injection 1-2 mg 1-2 mg, Intravenous, [id number], Other, htn, Starting on Samia 05/16/24 at 0941, Until Samia 05/16/24 at 2321, Must call anesthesia before initiating medication. Give q 5 minutes PRN up to 10 mg Hold for HR < 50 (PACU use only), PACU (only) oxyCODONE (ROXICODONE) 1 MG/1ML solution 5 mg(Linked Group 2) 5 mg, Oral, ONCE PRN, Pain, Moderate to Severe Pain, Starting on Samia 05/16/24 at 0709, Until Samia 05/16/24 at 2321, For 1 dose, Give for pain not managed by non-opioid medications or other interventions. Use if unable to swallow tablets. oxyCODONE (ROXICODONE) immediate release tablet 5 mg(Linked Group 2) 5 mg, Oral, ONCE PRN, Pain, Moderate to Severe pain, Starting on Samia 05/16/24 at 0709, Until Samia 05/16/24 at 2321, For 1 dose, Give for pain not managed by non-opioid medications or other interventions. Use if able to swallow tablets oxyCODONE-acetaminophen (PERCOCET) 5-325 MG per tablet 1-2 Tablet 1-2 Tablet, Oral, Q4H PRN, Pain, Starting on Samia 05/16/24 at 0945, Until Samia 05/16/24 at 2321, q4h prn, PACU & Post-op 1030 (Given - Provid er: Ирина Jensen RN) Linked Groups Order Group 1: hydrOXYzine pamoate (VISTARIL) capsule 25 mgJump to med 25 mg, Oral, ONCE PRN, Nausea/Vomiting, Starting on Samia 05/16/24 at 0941, Until Samia 05/16/24 at 2321, For 1 dose, Anti-emetic Step 3: hydroxyzine + ephedrine: use if Step 1-2 medications not effective. If Nausea/vomiting not resolved in 15 minutes, go to next step medications if ordered. (PACU use only), PACU (only) And ePHEDrine injection 25 mgJump to med 25 mg, Intramuscular, ONCE PRN, Other, nausea/vomiting, Starting on Samia 05/16/24 at 0941, For 1 dose, Anti-emetic Step 3: hydroxyzine + ephedrine: use if Step 1-2 medications not effective. If Nausea/vomiting not resolved in 15 minutes, go to next step medications if ordered. (PACU use only), PACU (only) Group 2: oxyCODONE (ROXICODONE) immediate release tablet 5 mgJump to med 5 mg, Oral, ONCE PRN, Pain, Moderate to Severe pain, Starting on Samia 05/16/24 at 0709, Until Samia 05/16/24 at 2321, For 1 dose, Give for pain not managed by non- opioid medications or other interventions. Use if able to swallow tablets Or oxyCODONE (ROXICODONE) 1 MG/1ML solution 5 mgJump to med 5 mg, Oral, ONCE PRN, Pain, Moderate to Severe Pain, Starting on Samia 05/16/24 at 0709, Until Samia 05/16/24 at 2321, For 1 dose, Give for pain not managed by non- opioid medications or other interventions. Use if unable to swallow tablets. documented in this encounter Care Teams Real Estate Legal Assistant Relationship Specialty Start Date End Date Ankita Shannon MD [address] [place] [address] PCP - General Family Practice 05/16/24 documented as of this encounter
--- OUTSIDE RECORDS SUMMARY | 2024-06-20 15:02 | XMS_ITS | Encounter Summary ---
Author Organization [facility] Address [address] [facility] [place] [address] Care Team Providers Care Manager Ambulatory Name Role Phone Ankita Shannon MD Primary Care Provider [phone] Reason for Referral * Therapies (Routine) - New Request Specialty Diagnoses / Procedures Referred By Adonis laejo Referred To Contact Diagnoses Pelvic floor dysfunction in female Elli Warren MD [address] [place] [address] Referral ID Status Reason Start Date Expiration Date V isits Requested Visits Authorized [id number] New Request 06/19/2024 06/18/2025 1 1 Scheduling Instructions Your clinician has recommended an appointment with [facility]. You can quickly schedule your appointment by signing in to your online account at [email or web address] or through the text message you may have received. You can also make an appointment by calling [phone]. We suggest you call your health insurance company about your coverage and benefits for this appointment. Question Answer Appointment Urgency? Non-Urgent Requested Services Evaluate and treat Reason for Visit Pelvic Health May use saline for irrigation or cleansing Yes dexamethasone use Yes May check glucose per protocol (see policy link below) or if patient has symptoms? Yes Comments S/p [facility] DOS 05/16/24 TAL MEDIA PRODUCER Reason for Visit * Reason Comments Follow-up, NOS [facility] En[facility] Details Date Type Department Care Team (Late st Contact Info) Description 06/18/2024 10:00 AM DIGITAL MEDIA PRODUCER E-Visit [facility] [address] [place] [address] Elli Warren MD [address] [place] [address] Dx: Pelvic floor dysfunction in female (Primary Dx) Social History Tobacco Use Types Packs/Day Years [...] Nursing Notes * Anna Hubbard RN - 06/19/2024 9:53 AM CST Referral faxed to [facility] [phone], confirmation received. [employer] DATA MINER Triage 06/19/24 9:54 AM TAL MEDIA PRODUCER * Anna Hubbard RN - 06/18/2024 11:44 AM CST Pelvic PT order pended, sent to provider for review and signing. [employer]ER Triage 06/18/24 11:44 AM TAL MEDIA PRODUCER documented in this encounter Miscellaneous Notes * E-Visit Routing Comment - Elli Warren MD - 06/19/2024 9:09 AM DIGITAL MEDIA PRODUCER Referral signed, thanks for pending! LM TAL MEDIA PRODUCER documented in this encounter Plan of Treatment Scheduled Referrals Name Type Priority Associated Diagnoses Orde r Schedule Physical Therapy Referral Routine Pelvic floor dysfunction in female Ordered: 06/19/2024 documented as of this encounter Visit Diagnoses Diagnosis Pelvic floor dysfunction in female- Primary documented in this encounter Care Teams Manager Ambulatory Relationship Specialty Start Date End Date Ankita Shannon MD [address] [place] [address] PCP - General Family Practice 05/16/24 documented as of this encounter
--- OUTSIDE RECORDS SUMMARY | 2024-06-20 15:02 | XMS_ITS | Clinical Summary ---
Author Organization [facility] Address [address] [place] [address] Care Team Providers Care Sketch Liner Name Role Phone Ankita Shannon MD Primary Care Provider [phone] Source Comments You are receiving this document as you are listed as the primary care provider,follow-up provider, or the patient has been referred to you for consultation.This is in compliance with the Medicare andOhio[facility] Centercaid EHR Incentive Program,which states Providers who transition their patient to another setting of careor provider of care or refers their patient to another provider of care shouldprovide summary care record for each transition of care or referral. [facility] [employer] Allergies Active Allergy Reactions Criticality Noted Date Comments Other Palpitations 02/07/2024 Walnuts causing mild tongue sewlling Serotonin Reuptake Inhibitors (Ssris) Rash 02/07/2024 Medications Medication Sig Dispensed Refills Start Date End Date Status vitamin b complex-c (AKA SURBEX-T) capsule Take 1 Capsule by mouth daily. Active famotidine (PEPCID) 40 MG tablet Take 1 Tablet (40 mg) by mouth. 04/09/[address] (PROTONIX) 40 MG tablet Take 1 Tablet (40 mg) by mouth. 04/09/2024 Active ondansetron (ZOFRAN-ODT) [address] 1 Tablet (4 mg) under tongue every 8 hours as needed. 04/02/2024 Active sucralfate (CARAFATE) 1 g tablet Take 1 Tablet (1 g) by mouth 4 times a day. Active amitriptyline (ELAVIL) 75 MG tablet Take 1 Tablet (75 mg) by mouth daily. Active acetaminophen (TYLENOL) 325 MG tablet Take 1-2 Tablets (325-650 mg) by mouth every 6 hours as needed for Pain. Maximum of 12 tablets per day 100 Tablet 05/16/2024 Active oxyCODONE (ROXICODONE) 5 MG immediate release tablet Take 1 Tablet (5 mg) by mouth every 6 hours as needed for pain not relieved by acetaminophen. 8 Tablet 05/16/2024 Active Additional Information Patient not taking.Reported on 06/14/2024 docusate sodium (COLACE) 100 MG capsule Take 1 Capsule (100 mg) by mouth two times a day for the first week postop, to avoid constipation. Take as needed after one week. 100 Capsule 05/16/2024 Active senna (SENNA LAXATIVE) 8.6 MG tablet Take 1 Tablet by mouth daily as needed for Constipation. 40 Tablet 05/16/2024 Active fluconazole (DIFLUCAN) 150 MG tabletIndications:Ye ast vaginitis Take one tablet by mouth now. 1 Tablet 05/27/2024 Active Additional Information Patient not taking.Reported on 06/14/2024 traZODone (DESYREL) 50 MG tablet Take 1-2 Tablets (50-100 mg) by mouth at bedtime as needed. 06/12/2024 Active Active Problems Problem Noted Date Diagnosed Date Depression with anxiety 06/14/2024 Lyme disease 05/29/2013 Resolved Problems Problem Noted Date Diagnosed Date Resolved Date Pelvic pain in female 02/22/20242024 Encounters Date Type Department Care Team Description 06/20/2024 Nurse Triage [facility] [address] [place] [address] [phone] Elli Warren MD 06/19/2024 2:40 PM WOOD FLOOR REFINISHER E-Visit [facility] [address] [place] [address] [phone] Elli Warren MD Chief Comp: Forms/Letter 06/18/2024 10:00 AM WOOD FLOOR REFINISHER E-Visit [facility] [address] [place] [address] [phone] Elli Warren MD Dx: Pelvic floor dysfunction in female (Primary Dx) 06/14/2024 2:00 PM WOOD FLOOR REFINISHER Office Visit [facility] [address] [place] [address] [phone] Elli Warren MD Postoperative follow-up (Primary Dx); S/P hysterectomy 06/04/2024 2:50 PM WOOD FLOOR REFINISHER E-Visit [facility] [address] [place] [address] [phone] Elli Warren MD Chief Comp: QUESTIONS, GENERAL 06/04/2024 Telephone [facility] [address] [place] [address] [phone] Elli Warren MD Follow-up (bleeding) 05/27/2024 E-Visit [facility] [address] [place] [address] [phone] Elli Warren MD Dx: Yeast vaginitis (Primary Dx) 05/24/2024 Telephone [facility] [address] [place] [address] [phone] Elli Warren MD Patient Calling Back; RESULTS, TEST 05/16/2024 7:42 AM WOOD FLOOR REFINISHER Anesthesia Event Operating Room [address] [place] [address] [phone] Kriss Ma MD Cleet, Eva M, MD 05/16/2024 7:15 AM WOOD FLOOR REFINISHER - 05/16/2024 10:55 AM WOOD FLOOR REFINISHER Surgery Operating Room [address] [place] [address] [phone] Elli Warren MD LAPAROSCOPIC HYSTERECTOMY; BILATERAL SALPINGECTOMY;; CYSTOSCOPY 05/16/2024 5:53 AM WOOD FLOOR REFINISHER - 05/16/2024 1:30 PM WOOD FLOOR REFINISHER Hospital Encounter Operating Room [address] [place] [address] [phone] Elli Warren MD Pelvic pain in female Discharge Disposition: Home 05/16/2024 Orders Only HIM DEPARTMENT Provider, MD Martha 05/07/2024 Telephone [facility] [address] [place] [address] [phone] Elli Warren MD Prior Authorization For Procedure 05/07/2024 Telephone [facility] [address] [place] [address] [phone] Elli Warren MD ERRONEOUS ENTRY 05/07/2024 Nurse Triage [facility] [address] [place] [address] [phone] Elli Warren MD Upper Respiratory Infection; Surgery Questions 04/22/2024 4:20 PM WOOD FLOOR REFINISHER Lab Visit [facility] [address] [place] [address] [phone] Medication side effect 04/22/2024 3:20 PM WOOD FLOOR REFINISHER Pre-Op Visit [facility] [address] [place] [address] [phone] Elli Warren MD Preop examination (Primary Dx); Dysmenorrhea 04/20/2024 [facility]phone [facility] [address] [place] [address] [phone] Unassigned, Provider ABDOMINAL PAIN 04/20/2024 Refill [facility] [address] [place] [address] [phone] Elli Warren MD Refill (ISIBLOOM 0.15-30 MG-MCG tablet [Pharmacy Med Name: ISIBLOOM 0.15-30 MG-MCG TAB 0.15-30 Tablet]) 04/18/2024 2:55 PM WOOD FLOOR REFINISHER E-Visit [facility] [address] [place] [address] [phone] Elli Warren MD Dx: Medication side effect (Primary Dx) 04/01/2024 10:40 AM WOOD FLOOR REFINISHER E-Visit [facility] [address] [place] [address] [phone] Elli Warren MD Dx: Medication side effect (Primary Dx) 03/22/2024 E-Visit [facility] [address] [place] [address] [phone] Mychart, Generic Provider from Last 3 Months Family History Medical History Relation Name Comments No Known Problems Father Other Mother Cancer, Breast Paternal Grandmother Relation Name Status Comments Father Alive Mother Alive Maternal Grandfather Maternal Grandmother Paternal Grandfather Paternal Grandmother Social History Tobacco Use Types Packs/Day Years Used Date Smoking Tobacco: Never Passive Smoke Exposure: Never Smokeless Tobacco: Never Tobacco Cessation:Counseling Given: Not Answered Alcohol Use Standard Drinks/Week Comments Not Currently 0 (1 standard drink = 0.6 oz pur e alcohol) Sex and Gender Information Value Date Recorded Sex Assigned at Not on file Gender Identity Not on file Sexual Orientation Not on file Last Filed Vital Signs Vital Sign Reading Time Taken Comments Blood Pressure 114/80 06/14/2024 2:10 PM WOOD FLOOR REFINISHER Pulse 102 06/14/2024 2:10 PM WOOD FLOOR REFINISHER Temperature 36.8 C (98.3 F) 05/16/2024 1:06 PM WOOD FLOOR REFINISHER Respiratory Rate 16 05/16/2024 11:10 AM WOOD FLOOR REFINISHER Oxygen Saturation 97% 05/16/2024 1:06 PM WOOD FLOOR REFINISHER Inhaled Oxygen Concentration - - Weight 52.7 kg (116 lb 3.2 oz) 06/14/2024 2:10 P M WOOD FLOOR REFINISHER Height 160 cm (5' 3) 05/16/2024 6:43 AM WOOD FLOOR REFINISHER Body Mass Index 20.58 05/16/2024 6:43 AM WOOD FLOOR REFINISHER Plan of Treatment Health Maintenance Due Date Last Done Comments Hep C Screening (Preventive Services) 1986 HIV Screening (Preventive Services) 2002 Adult Preventive Visit 01/17/2004 HepB (1) 2005 Cervical Cancer Screening 06/07/2025 06/07/2022 DTaP/Tdap/Td (2 - Tdap) 06/07/2032 06/07/2022 Zoster/Shingles (1 of 2) 01/17/2036 HepA Aged Out 05/11/2019 No longer eligi ble based on patient's age to complete this topic Influenza Completed 03/11/2024, 04/29, 05/11/2019 COVID-19 Vaccine Completed 03/19/2024, , 11/26/2021, Additional history exists HPV Vaccine Aged Out No longer eligi ble based on patient's age to complete this topic Hib Aged Out No longer eligi ble based on patient's age to complete this topic IPV (Polio) Aged Out No longer eligi ble based on patient's age to complete this topic MCV4 Aged Out No longer eligi ble based on patient's age to complete this topic Pneumococcal Aged Out No longer eligi ble based on patient's age to complete this topic Procedures Procedure Name Priority Date/Time Associated Diagnosis Comments SURGICAL PATHOLOGY Routine 05/16/2024 8: 46 AM WOOD FLOOR REFINISHER Pelvic pain in female LAPAROSCOPIC HYSTERECTOMY (SDEX) Same Day Recovery 05/16/2024 7:30 AM WOOD FLOOR REFINISHER Pelvic pain in female POCT URINE Routine 05/16/2024 7:03 AM WOOD FLOOR REFINISHER GLUCOSE, WHOLE BLOOD POCT Routine 05/16/2024 6:59 AM WOOD FLOOR REFINISHER BT SECOND DRAW Routine 05/16/2024 6:49 AM WOOD FLOOR REFINISHER ANTIBODY SCREEN STAT 05/16/2024 6:41 AM WOOD FLOOR REFINISHER BLOOD TYPE STAT 05/16/2024 6:41 AM WOOD FLOOR REFINISHER HEMOGLOBIN, BLOOD STAT 05/16/2024 6:4 1 AM WOOD FLOOR REFINISHER TYPE AND SCREEN STAT 05/16/2024 6:41 AM WOOD FLOOR REFINISHER EKG 05/16/2024 ECG-ROUTINE 12 LEAD; INTRPT & REPRT Routine 04/22/2024 4:40 PM WOOD FLOOR REFINISHER Medication side effect ECG 12-LEAD ROUTINE(LAB PERFORM) Routine 04/22/2024 4:36 PM WOOD FLOOR REFINISHER Medication side effect PAP TEST Routine 06/07/2022 12:00 AM WOOD FLOOR REFINISHER from Last 3 Months or Most Recently Relevant to Health Maintenance Results * Surgical Path (05/16/2024 8:46 AM WOOD FLOOR REFINISHER) Case Report Surgical Pathology Case: [id number] Authorizing Provider: Elli Warren MD Collected: 05/16/2024 0846 Ordering Location: Operating Room Received: 05/16/2024918 Pathologist: Radha Simms MD Specimens: A) - Fallopian Tube, right, Right Fallopian tube B) - Fallopian Tube, left, Left Fallopian Tube C) - Uterus, uterus and cervix 05/21/2024 3:34 PM [facility] FINAL DIAGNOSIS A. Fallopian tube, right, right salpingectomy: Fallopian tube with no diagnostic abnormality B. Fallopian tube, left, left salpingectomy: Fallopian tube with benign paratubal cyst C. Uterus and cervix, hysterectomy: Uterus with inactive endometrium, benign endometrial polyp, leiomyoma, and changes suggestive of focal serosal endometriosis Cervix with Nabothian cysts 05/21/2024 3:34 PM [facility] Clinical Information Pelvic pain in female 05/21/2024 3:34 PM [facility] Microscopic Description Microscopic examination is performed. 05/21/2024 3:34 PM [facility] Gross Description A: The specimen is received [...] lumen. No masses or lesions are identified. Mortgage Loan Counselor sections including the longitudinally bisected fimbria and cross sections of fallopian tube are submitted in one cassette. B: The specimen is received in formalin and labeled with the patient's name and Fallopian Tube, left, Left Fallopian Tube. The specimen consists of a 5.6 cm in length and 0.5 cm in diameter portion of fallopian tube and fimbria. The serosa is brink-pink, smooth and glistening. The cut surfaces are brink-pink with a patent, stellate lumen. No masses or lesions are identified. Mortgage Loan Counselor sections including the longitudinally bisected fimbria and [...] aspects, 0.1-0.3 cm in greatest dimension. MYOMETRIUM: Dermott-brink, finally trabeculated, 2.1 cm thick LEIOMYOMA(TA): There is a 0.3 cm in greatest dimension subserosal nodule TISSUE SUBMISSION: Mortgage Loan Counselor sections are submitted in 9 cassettes. 1. Anterior cervix (12:00) 2. Posterior cervix (6:00) 3. Anterior endomyometrium interface with polyp 4. Posterior endomyometrium interface with polyp 5. Mortgage Loan Counselor nodule 6. Additional posterior fundal polyp 7. Mortgage Loan Counselor serosal surface with smooth patch on posterior aspect 8. 3:00 cervix 9. 9:00 cervix. 05/21/2024 3:34 PM [facility] Embedded Images 05/21/2024 3:34 PM [facility] Tissue ENTIRE RIGHT FALLOPIAN TUBE / Unknown 05/16/2024 8:46 AM WOOD FLOOR REFINISHER 05/16/2024 9:19 AM WOOD FLOOR REFINISHER Tissue specimen (specimen) ENTIRE LEFT FALLOPIAN TUBE / Unknown 05/16/2024 8:46 AM WOOD FLOOR REFINISHER 05/16/2024 9:19 AM WOOD FLOOR REFINISHER Tissue specimen (specimen) UTERINE STRUCTURE / Unknown 05/16/2024 9:13 AM WOOD FLOOR REFINISHER 05/16/2024 9:19 AM WOOD FLOOR REFINISHER Elli Warren MD LAB PATHOLOGY Performing Organization Address City/State/[facility] Co de Phone Number [address] [address], [facility] * POCT urine (05/16/2024 7:03 AM WOOD FLOOR REFINISHER) [facility] Urine Test - POC Negative Negative POCT Control Line Present, Clear Background - Internal control Yes POCT Cartridge Lot# [id number] POCT Urine 05/16/2024 7:03 AM WOOD FLOOR REFINISHER Elli Warren MD ET POINT OF CARE EULA T ENTER/EDIT ORDERABLES Performing Organization Address City/[facility] Co de Phone Number POCT * Glucose, Whole Blood POCT (05/16/2024 6:59 AM WOOD FLOOR REFINISHER) [facility] Glucose, Whole Blood 74 70 - 180 mg/dL 05/16/2024 7:01 AM WOOD FLOOR REFINISHER [facility] Performing Location [facility] PSCU 05/16/2024 7:01 AM WOOD FLOOR REFINISHER [facility] Blood 05/16/2024 6:59 AM WOOD FLOOR REFINISHER 05/16/2024 7:01 AM WOOD FLOOR REFINISHER Elli aWrren MD LAB_1 Performing Organization Address [facility] Co de Phone Number [address] * Blood Type second draw (05/16/2024 6:49 AM WOOD FLOOR REFINISHER) Pathologist [facility] ABO B 05/16/2024 7:25 AM WOOD FLOOR REFINISHER [facility] RH Positive 05/16/2024 7:25 AM WOOD FLOOR REFINISHER [facility] Blood Venipuncture / Unknown 05/16/2024 6:49 AM WOOD FLOOR REFINISHER 05/16/2024 6:56 AM WOOD FLOOR REFINISHER Sandra King MD LAB_1 Performing Organization Address [facility] Co de Phone Number [facility] [address] * Antibody Screen (05/16/2024 6:41 AM WOOD FLOOR REFINISHER) [facility] Antibody Screen Interpretation Negative 05/16/2024 7:32 AM WOOD FLOOR REFINISHER [facility] Blood Venipuncture / Unknown 05/16/2024 6:41 AM WOOD FLOOR REFINISHER 05/16/2024 6:53 AM WOOD FLOOR REFINISHER Elli Warren MD LAB_1 Performing Organization Address [facility]/ZIP Co de Phone Number [facility] [address] [place] [address] * Blood Type (05/16/2024 6:41 AM WOOD FLOOR REFINISHER) ABO B 05/16/2024 7:32 AM WOOD FLOOR REFINISHER [facility] RH Positive 05/16/2024 7:32 AM WOOD FLOOR REFINISHER [facility] Blood Venipuncture / Unknown 05/16/2024 6:41 AM WOOD FLOOR REFINISHER 05/16/2024 6:53 AM WOOD FLOOR REFINISHER Elli Warren MD LAB_1 Performing Organization Address [facility] Co de Phone Number [facility] [address] [place] [address] * Hemoglobin (05/16/2024 6:41 AM WOOD FLOOR REFINISHER) Hemoglobin 15.1 12.0 - 15.5 g/dL 05/16/2024 6:58 AM WOOD FLOOR REFINISHER [facility] Blood Venipuncture / Unknown 05/16/2024 6:41 AM WOOD FLOOR REFINISHER 05/16/2024 6:53 AM WOOD FLOOR REFINISHER Elli Warren MD LAB_1 Performing Organization Address [facility] Phone Number [address] * EKG (05/16/2024) Interface Provider EKG * Ecg 12-Lead Routine - MUSE (04/22/2024 4:40 PM WOOD FLOOR REFINISHER) Ventricular Rate 94 BPM MUSE GHP Atrial Rate 94 BPM MUSE [facility] P-R Interval 96 ms MUSE [facility] QRS Duration 80 ms MUSE GHP QT 352 ms MUSE GHP QTC 440 ms MUSE G[facility] P [place] -4 degrees MUSE GHP R [place] 67 degrees MUSE GHP T [place] 31 degrees MUSE GHP 04/22/2024 4:40 PM WOOD FLOOR REFINISHER Narrative MUSE GHP - 04/23/2024 9:43 AM WOOD FLOOR REFINISHER Sinus rhythm with short DC Otherwise normal ECG No previous ECGs available Confirmed by Jama De La Cruz ([id number]) on 04/23/2024 9:43:20 AM Procedure Note Katina De La Cruz MD - 04/23/2024 Sinus rhythm with short DC Otherwise normal ECG No previous ECGs available Confirmed by Jama De La Cruz ([id number]) on 04/23/2024 9:43:20 AM Elli Warren MD EKG Performing Organization Address City/[facility] Co de Phone Number [facility] [address] [place] [address] * Ecg 12-Lead Routine (Lab perform) (04/22/2024 4:36 PM WOOD FLOOR REFINISHER) EKG Completed 04/22/2024 6:00 PM WOOD FLOOR REFINISHER [facility] Other Specimen Type 04/22/2024 4:36 PM WOOD FLOOR REFINISHER 04/22/2024 4:36 PM WOOD FLOOR REFINISHER Elli Warren MD LAB_1 Performing Organization Address [facility] Co de Phone Number [facility] [address] [place] [address] * PAP Test (06/07/2022 12:00 AM WOOD FLOOR REFINISHER) Other Specimen Type ENTIRE ENDOCERVIX / Unknown Physician Unknown LAB PATHOLOGY Performing Organization Address [facility] Co de Phone Number EXTERNAL RESULTS from Last 3 Months or Most Recently Relevant to Health Maintenance Care Teams Sketch Liner Relationship Specialty Start Date End Date Ankita Shannon MD [address] [place] [address] PCP - General Family Practice 05/16/24
--- OUTSIDE RECORDS SUMMARY | 2024-06-20 15:02 | XMS_ITS | Encounter Summary ---
Author Organization [facility] Address [address] [place] [id number] Care Team Providers Care Boat Loader Helper Name Role Phone Ankita Shannon MD Primary Care Provider [phone] Reason for Visit * Auth/Cert (Routine) Specialty Diagnoses / Procedures Referred By Adonis alejo Referred To Contact Diagnoses Pelvic pain in female . Procedures LAPAROSCOPIC HYSTERECTOMY; BILATERAL SALPINGECTOMY; POSSIBLE EXCISION OF ENDOMETRIOSIS; CYSTOSCOPY Referral ID Status Reason Start Date Expiration Date Visits Re quested Visits Authorized [id number] 1 1 Encounter Details Date Type Department Care Team (Late st Contact Info) Description 05/16/2024 7:42 AM VENEER SLICING MACHINE OPERATOR Anesthesia Event [facility] Operating Room [address] [place] [id number] Kriss Ma MD [address] [place] [address] 14[address] Mirela Weinberg MD [address] [place] [id number] Anesthesia Record Procedure Summary Procedure Name Responsible Anesthesiologist Anesthesia Start Time Anesthesia Stop Time LAPAROSCOPIC HYSTERECTOMY; BILATERAL SALPINGECTOMY;; CYSTOSCOPY (Bilateral) Kriss Ma MD 05/16/24 0742 05/16/24 0957 Events Date Time Event Comment 05/16/2024 0707 0742 An Start 0745 An Start Data 0752 MD/DO Present 0753 An Induction 0756 An Intubation 0802 an natalie now OG to LIS 0820 an natalie now Procedure start 0920 MD/DO Present 0946 An Extubation Purposeful mov ement with spontaneous respirations and adequate air exchange. Suctioned and ETT removed. Transferred with oxygen to recovery. 0952 an stop data 0957 Care Handoff Note I discusse d with the receiving nurse and we: 1) Identified the patient, darnell family member(s) or patient surrogate 2) Identified the responsible practitioner 3) Reviewed the pertinent medical history 4) Discussed the surgical/procedure course 5) Reviewed intra-op anesthesia management and issues during anesthesia 6) Set expectations for the post-procedure period 7) Allowed opportunity for questions and acknowledgement of understanding of report Electronically signed by Edison Cruz APRN, SOLAR SYSTEM DESIGNER 0957 An Stop Care transferre kerrie. Meds Name Total midazolam 2 mg/2 mL injection (aka VERSE D) 2 mg fentaNYL injection (aka SUBLIMAZE) 2 mL lidocaine 1% PF injection aka (XYLOCAINE ) 40 mg propofol 10 mg/mL for procedural sedatio n (aka diPRIvan) 150 mg propofol (DIPRIVAN) 10 mg/mL IV 827.02 m g rocuronium injection (aka ZEMURON) 100 m g dexamethasone 4 mg/mL injection (aka DEC ADRON) 8 mg ondansetron injection (aka ZOFRAN) 4 mg sugammadex injection 200mg/ 2mL (aka BRIAN JANELLE) 100 mg HYDROmorphone 1 mg/mL injection (aka DIL AUDID) 1 mg ceFAZolin (ANCEF) 2 g in sterile water 2 0 mL IV push 2 g metroNIDAZOLE (FLAGYL) 500 mg in sodium chloride 100 mL IVPB premix 500 mg scopolamine patch (TRANSDERM-SCOP) 1 Pat ch ketorolac (TORADOL) 15 mg/mL injection 1 5 mg sodium chloride 0.9% infusion 800 mL * Agents Name O2 N2O Air * Blood No blood administrations on file. Lines, Drains, and Airways Type Details Placement Removal Incision/Surgical Site 05/16/24; Yes; Vagina; 05/30/24; 212005/16/24 0000 by April Wayne RN 05/30/242120 by Lupe, Baldev Peripheral IV Placement Date: 05/16/24; Placement Time: 0650; Pre-existing: No; Inserted by?: RN; Size (Gauge): 22 G; Orientation: Left; Site Prep: Chlorhexidine; Local Anesthetic: None; Insertion attempts: 1; Blood draw with insertion?: yes; Patient Tolerance: Tolerated well; Removal Date: 05/16/24; Removal Time: 1307; Removal Reason: Patient discharged; Catheter Tip: Intact 05/16/24 0650 by Rasheeda Sweeney RN 05/16/24 1307 by Keshav Hull RN ETT Placement Date: 05/16/24; Placement Time: 0756; Placed By: SOLAR SYSTEM DESIGNER; Induction Type: Pre-O2, IV; Masking: Easy; ETT Type: ETT; Orientation: Right; Size (mm): 7.0; Depth Secured (cm): 21 cm; Cuffed: Cuffed; Cuff Volume: 5 mL; Intubation Method: DL; Cormack_Lehane Glottic Grade: Grade 1; Glottic View: Cords Open, Cords Clear; Blade: Holland; Blade Size: 2; Insertion attempts: 1; Difficulty: Easy; Adjunct Equipment: Stylet; Placement Verification: BBSE, auscultation, Positive EtCO2, capnometry; Teeth and Lips Unchanged: Unchanged; Removal Date: 05/16/24; Removal Time: 0946 05/16/24 0756 by Edison Cruz APRN, CRNA 05/16/24 0946 by Edison Cruz APRN, CRNA Peripheral IV Placement Date: 05/16/24; Placement Time: 0758; Pre-existing: No; Inserted by?: Anesthesiologist; Size (Gauge): 18 G; Orientation: Left; Site Prep: ChloraPrep; Local Anesthetic: None; Insertion attempts: 1; Blood draw with insertion?: no; Patient Tolerance: Tolerated well; Removal Date: 05/16/24; Removal Time: 1140 05/16/24 0758 by Edison Cruz APRN, CRNA 05/16/24 1140 by Pascale Galeas RN Enteral Tube Placement Date: 05/16/24; Placement Time: 0800; Pre-existing: No; Performed By: LAURA; Tube Type: (16 sinhala OG tube); Tube Size (Fr.): 16 Fr.; Tube Location: Mouth; Removal Date: 05/16/24; Removal Time: 0940 05/16/24 0800 by Edison Cruz APRN, SOLAR SYSTEM DESIGNER 05/16/24 0940 by Ирина Jensen RN Incision/Surgical Site 05/16/24; 08; (trocar sites x 3); No; Abdomen; 05/30/24; 212005/16/24 0820 by April Wayne RN 05/30/242120 by Lda, Discontinue Indwelling Urethral Catheter 05/16/24; 08; No; Rassmussen; 1 person; Indwelling Catheter; 16 Fr.; 1 05/16/24 0820 by April Wayne RN 05/16/24 0950 by Ирина Jensen RN documented in this encounter Social History Tobacco Use Types Packs/Day Years [...] on file documented as of this encounter Miscellaneous Notes * Anesthesia Postprocedure Evaluation - Kriss Gongora MD - 05/16/2024 10:47 AM CST [facility] Anesthesia Post-op Note Patient: Mirtha Garcia Post-Op Diagnosis: Pre-Op Diagnosis Codes: * Pelvic pain in female [R10.2] Procedures performed: LAPAROSCOPIC HYSTERECTOMY; BILATERAL SALPINGECTOMY;; CYSTOSCOPY (Bilateral) Anesthesia Type: General Post-op vital signs: Vitals Value Taken Time BP 129/75 05/16/24 1045 Temp 97 ??F (36.1 ??C) 05/16/24 0954 Pulse 106 05/16/24 1046 Resp 16 05/16/24 1046 SpO2 100 % 05/16/24 1046 Vitals shown include unfiled device data. Pain Assessment Preferred Pain Scale: word (Verbal Rating Pain Scale) Last recorded pain score: 4 - moderate pain Post-op assessment: Patient location: PACU Airway Status: Patent Cardiovascular function: Satisfactory Hydration status: Satisfactory PONV: None Level of Consciousness: Awake Fully Participates Postop Assessment: Patient tolerated procedure well. Electronically signed by: Kriss Lopez MD 05/16/2024 10:47 AM ER SLICING MACHINE OPERATOR * Anesthesia Preprocedure Evaluation - Kriss Gongora MD - 05/16/2024 7:00 AM CST [facility] Anesthesia Pre-op Evaluation Procedure: LAPAROSCOPIC HYSTERECTOMY; BILATERAL SALPINGECTOMY; POSSIBLE EXCISION OF ENDOMETRIOSIS;CYSTOSCOPY, Bilateral HPI: 39 y.o. old female. Pre-Op Diagnosis Codes: * Pelvic pain in female [R10.2] Last Fluid Intake Time: 0630 (sip of water) Last Fluid Intake Date: 05/16/24 Last Food Intake Date: 05/15/24 Last Food Intake Time: 2100 Allergies Allergen Reactions Other Palpitations Walnuts causing mild tongue sewlling Serotonin Reuptake Inhibitors (Ssris) Rash Past Medical History: Diagnosis Date H/o Lyme disease Patient Active Problem List Diagnosis Pelvic pain in female Past Surgical History: Procedure Laterality Date WISDOM TEETH EXTRACTION Outpatient Medications as of 05/16/2024 Medication Sig amitriptyline (ELAVIL) 50 MG tablet Take 1.5 Tablets (75 mg) by mouth daily. (Patient not taking: Reported on 04/22/2024) vitamin b complex-c (AKA SURBEX-T) capsule Take 1 Capsule by mouth daily. Facility-Administered Medications as of 05/16/2024 Medication Dose Route Frequency ceFAZolin (ANCEF) 2 g in sterile water 20 mL IV push 2 g Intravenous Once (Non-Scheduled) dextrose 50% (D50) injection 25-50 g 25-50 g Intravenous PRN based on Blood Sugar insulin lispro (HUMALOG; ADMELOG) injection vial 2-4 Units 2-4 Units Subcutaneous PRN based on Blood Sugar lactated ringers infusion Intravenous Continuous metroNIDAZOLE (FLAGYL) 500 mg in sodium chloride 100 mL IVPB premix 500 mg Intravenous Once Labs: No results found for: SODIUM, K, CHLORIDE, CO2, BUN, CREATININE, GLUCOSE Lab Results Component Value Date/Time HGB 15.1 05/16/2024 06:41 AM No results found for: INR Blood Bank: No results found for: ABO, ABSCR EKG: Date of last EK04/22/24 Ecg 12-Lead Routine - MUSE Result Value Ref Range Ventricular Rate 94 BPM Atrial Rate 94 BPM P-R Interval 96 ms QRS Duration 80 ms QT 352 ms QTC 440 ms P Sidney -4 degrees R Sidney 67 degrees T Sidney 31 degrees Physical Exam: BP 120/77 Pulse 98 Temp 98.2 ??F (36.8 ??C) (Oral) Ht 5' 3 (1.6 m) Wt 50.8 kg (112 lb) SpO2 100% BMI 19.84 kg/m?? Assessment/Plan: Review of Systems Patient has GERD. GERD controlled with medication. Patient is not a current smoker. The patient denies alcohol use. Patient denies any recent URI. History of PONV: Yes. History of motion sickness (PONV): Yes. Patient denies any personal or family history of anesthesia complications. NPO Status: Acceptable. Exam Mental Status: Alert and oriented. Mallampati score: I (One). Mouth opening: Normal Thyromental Distance: > 3 finger breadths and Normal Neck Extension: Full Neck Circumference > 40 cm?: No Current airway assessment:Normal Dentition: Caps/crowns. Cardiac Exam: Regular rate and rhythm. Respiratory Exam: Breath sounds clear to auscultation Assessment ASA Status: 2 . Plan Anesthesia type: General and ETT Induction: Propofol Maintenance: TIVA Postoperative pain management: Plan for postoperative opioid use PONV Risk Score Adult: 5 PONV Prophylaxis (planned): Ondansetron, Decadron and Scopolamine Patch Anesthetic plan, risks, benefits and alternatives discussed with the patient who agrees to the anesthesia treatment plan. Possibility of blood products discussed. Additional equipment needed: 2nd IV The patient and/or their loss prevention representative were notified about the potential risks of damage to the lips, teeth, dental devices, mouth and airway. H&P Reviewed and Patient examined, no change observed IV access Antibiotics per surgery Electronically signed by: Kriss Lopez MD 05/16/2024 7:00 AM ER SLICING MACHINE OPERATOR documented in this encounter Plan of Treatment Not on file documented as of this encounter Visit Diagnoses Not on filedocumented in this encounter Administered Medications Inactive Administered Medications - up to 3 most recent administrations Medication Order MAR Action Action Date Dose Rate Site ceFAZolin (ANCEF) 2 g in sterile water 20 mL IV push 2 g, Intravenous, Administer over 5 Minutes, ONCE (NON-SCHEDULED), Starting on Samia 05/16/24 at 0539, For 1 dose, For patient weight less than or equal to 119 kg PRE-OP ANTIBIOTIC Dilute 2 gram vial with 19.2 mL sterile water for slow IV push over 5 minutes for adults., Pre-op Started 05/16/2024 8:05 AM VENEER SLICING MACHINE OPERATOR 2 g dexAMETHasone (DECADRON) injection Intravenous, Starting on Samia 05/16/24 at 0754, Until Samia 05/16/24 at 0957 Given 05/16/2024 7:54 AM VENEER SLICING MACHINE OPERATOR 8 mg fentaNYL (SUBLIMAZE) injection Intravenous, Starting on Samia 05/16/24 at 0753, Until Samia 05/16/24 at 0957 Given 05/16/2024 7:53 AM VENEER SLICING MACHINE OPERATOR 2 mL HYDROmorphone (DILAUDID) injection Intravenous, Starting on Samia 05/16/24 at 0826, Until Samia 05/16/24 at 0957 Given 05/16/2024 9:06 AM VENEER SLICING MACHINE OPERATOR 0.5 mg Given 05/16/2024 8:26 AM VENEER SLICING MACHINE OPERATOR 0.5 mg ketorolac (TORADOL) injection Intravenous, Starting on Samia 05/16/24 at 0940, Until Samia 05/16/24 at 0957 Given 05/16/2024 9:40 AM VENEER SLICING MACHINE OPERATOR 15 mg lidocaine PF (XYLOCAINE) 1 % injection Intravenous, Starting on Samia 05/16/24 at 0753 Given 05/16/2024 7:53 AM VENEER SLICING MACHINE OPERATOR 40 mg metroNIDAZOLE (FLAGYL) 500 mg in sodium chloride 100 mL IVPB premix 500 mg, Intravenous, Administer over 30 Minutes, ONCE, On Samia 05/16/24 at 0600, For 1 dose, Pre-op Given 05/16/2024 8:00 AM VENEER SLICING MACHINE OPERATOR 500 mg midazolam (VERSED) injection Intravenous, Starting on Samia 05/16/24 at 0742, Until Samia 05/16/24 at 0957 Given 05/16/2024 7:42 AM VENEER SLICING MACHINE OPERATOR 2 mg ondansetron (ZOFRAN) injection Intravenous, Starting on Samia 05/16/24 at 0936, Until Samia 05/16/24 at 0957 Given 05/16/2024 9:36 AM VENEER SLICING MACHINE OPERATOR 4 mg propofol (DIPRIVAN) 10 mg/mL injection Intravenous, Starting on Samia 05/16/24 at 0753, Until Samia 05/16/24 at 0957 Given 05/16/2024 7:53 AM VENEER SLICING MACHINE OPERATOR 150 mg propofol (DIPRIVAN) 10 mg/mL injection Intravenous, Starting on Samia 05/16/24 at 0755, Until Samia 05/16/24 at 0957 Rate/Dose Change 05/16/2024 9:27 AM VENEER SLICING MACHINE OPERATOR 140 mcg/kg/min 42.672 mL/hr Rate/Dose Change 05/16/2024 8:10 AM VENEER SLICING MACHINE OPERATOR 160 mcg/kg/min 48. 768 mL/hr Started 05/16/2024 7:55 AM VENEER SLICING MACHINE OPERATOR 180 mcg/kg/min 54.864 mL /hr rocuronium (ZEMURON) injection Intravenous, Starting on Samia 05/16/24 at 0754, Until Samia 05/16/24 at 0957 Given 05/16/2024 9:01 AM VENEER SLICING MACHINE OPERATOR 25 mg Given 05/16/2024 8:16 AM VENEER SLICING MACHINE OPERATOR 25 mg Given 05/16/2024 7:54 AM VENEER SLICING MACHINE OPERATOR 50 mg scopolamine (TRANSDERM-SCOP) 1 mg/72 hours Left Ear, Starting on Samia 05/16/24 at 0740, Until Samia 05/16/24 at 0957 Given 05/16/2024 7:40 AM VENEER SLICING MACHINE OPERATOR 1 Patch sodium chloride 0.9% infusion Intravenous, Starting on Samia 05/16/24 at 0745 Started 05/16/2024 7:45 AM VENEER SLICING MACHINE OPERATOR sugammadex (BRIDION) injection Intravenous, Starting on Samia 05/16/24 at 0944, Until Samia 05/16/24 at 0957 Given 05/16/2024 9:44 AM VENEER SLICING MACHINE OPERATOR 100 mg documented in this encounter Care Teams Boat Loader Helper Relationship Specialty Start Date End Date Ankita Shannon [place] [address] PCP - General Family Practice 05/16/24 documented as of this encounter
--- OUTSIDE RECORDS SUMMARY | 2024-06-20 15:02 | XMS_ITS | Encounter Summary ---
Author Organization [facility] Address [address] [place] [address] Care Team Providers Care Bonding Supervisor Name Role Phone Unavailable Primary Care Provider Unavailabl e Reason for Visit * Reason Comments Upper Respiratory Infection Surgery Questions Encounter Details Date Type Department Care Team (Late st Contact Info) Description 05/07/2024 Nurse Triage [facility] [address] [place] [id number] Elli Warren MD [address], [place] [id number] Upper Respiratory Infection; Surgery Questions Social History Tobacco Use Types Packs/Day Years [...] Nursing Notes * Anna Hubbard RN - 05/07/2024 8:17 AM CST Returned call to Mirtha, reviewed her symptoms. She is seeking advisement on how to treat her respiratory symptoms. Reviewed that it is ok for her to use OTC cough & cold medicines. Advised that given her ulcer, she should avoid NSAIDs. Advised her to call clinic/careline or present to urgent care or primary care if her symptoms worsen or are not improving after 2-3 days. Mirtha verbalizes under standing of all teaching and is in agreement with plan. ALEXUS RN NATIONAL INSURANCE OFFICER Triage 05/07/24 8:32 AM Reason for Disposition Cough with cold symptoms (e.g., runny nose, postnasal drip, throat clearing) Protocols used: [id number] ER HAND * Gretel Parker - 05/07/2024 8:08 AM CST Symptoms - costing manager: Are you ? No, No LMP recorded. (Menstrual status: Continuous hormonal contraception). Describe your symptoms (if pain, include location): Cough, congestion, nasal drainage, vomiting, sore throat, headache with negative home covid test onSunday. Fever has resolved, but other symptoms are not improving. When did they start? Monday Have you recently been seen for this? No If a prescription is needed, patient would like it filled at the pharmacy listed in Meds & Orders. What is a good number to reach you at? mobile Preferred communication method: Phone Call. Is it okay to leave a detailed message on your voicemail? Yes Pt has surgery scheduled for 05/16/24 and would like advisement on what to do with these symptoms. She hasn't been taking mucinex and other remedies for her symptoms because she has an ulcer that could be affected by this. ER HAND documented in this encounter Plan of Treatment Not on file documented as of this encounter Visit Diagnoses Not on filedocumented in this encounter
--- OUTSIDE RECORDS SUMMARY | 2024-06-20 15:02 | XMS_ITS | Encounter Summary ---
Author Organization [facility] Address [address] [place] [address] Care Team Providers Care Energy Derivatives Trader Name Role Phone Ankita Shannon MD Primary Care Provider +1- [phone] Reason for Visit * Auth/Cert (Routine) Specialty Diagnoses / Procedures Referred By Adonis alejo Referred To Contact Diagnoses Pelvic pain in female . Procedures LAPAROSCOPIC HYSTERECTOMY; BILATERAL SALPINGECTOMY; POSSIBLE EXCISION OF ENDOMETRIOSIS; CYSTOSCOPY Referral ID Status Reason Start Date Expiration Date Visits Re quested Visits Authorized [id number] 1 1 Encounter Details Date Type Department Care Team (Late st Contact Info) Description 05/16/2024 7:15 AM COURIER DRIVER - 05/16/2024 10:55 AM COURIER DRIVER Surgery Operating Room [address] [place] [address] Elli Warren MD [address] [place] [address] LAPAROSCOPIC HYSTERECTOMY; BILATERAL SALPINGECTOMY;; CYSTOSCOPY Social History Tobacco Use Types Packs/Day Years [...] Sign Reading Time Taken Comments Blood Pressure 121/75 05/16/2024 10:50 AM COURIER DRIVER Pulse 97 05/16/2024 10:50 AM COURIER DRIVER Temperature 36.1 C (97 F) 05/16/2024 9:54 AM COURIER DRIVER Respiratory Rate 13 05/16/2024 10:50 AM COURIER DRIVER Oxygen Saturation 100% 05/16/2024 10:50 AM COURIER DRIVER Inhaled Oxygen Concentration - - Weight 50.8 kg (112 lb) 05/16/2024 6:43 AM COURIER DRIVER Height 160 cm (5' 3) 05/16/2024 6:43 AM COURIER DRIVER Body Mass Index 19.84 05/16/2024 6:43 AM COURIER DRIVER documented in this encounter Discharge Instructions * Discharge Instr - Other Orders* Pascale Galeas RN - 05/16/2024 10:13 AM COURIER DRIVER CONTACT INFORMATION If it is after hours call the Careline at [phone]. [facility] Surgery: Please contact your clinic during regular business hours or in case of anEmergency dial 911. [place]: [phone] ANESTHESIA Today you received General/Minor Sedation: Rest [...] Reaction to new medications Severe pain Swelling IER DRIVER * Discharge Instr - Non RX Meds* Pascale Galeas RN - 05/16/2024 11:56 AM COURIER DRIVER You were given 15mg IV Toradol during your procedure at 9:30am. Toradol is in the same family as Ibuprofen therefore, Do Not start Ibuprofen until after 3:30pm. IER DRIVER documented in this encounter Medications at Time [...] Warren MD - 05/16/2024 1:50 PM CST SENIOR BUSINESS DEVELOPMENT ANALYST Postop Note Mirtha is feeling better than [...] f/u in 4 weeks. Elli Warren MD IER DRIVER documented in this encounter Procedure Notes * Elli Warren MD - 05/16/2024 11:14 AM CST [facility] Operative Note Surgery Date: 05/16/2024 Surgeons and [...] A surgical time out was completed. A lkein catheter was placed. A sterile speculum was [...] procedure, and the cystoscopy. Elli Warren MD IER DRIVER * Wil Moya DO - 05/16/2024 9:37 AM CST [facility] Brief Operative Progress Note Surgery Date: 05/16/2024 [...] [employer] jets. Wil Moya D.O. M.A. N NOTE TELLER PGY-3 05/16/24 9:38 AM IER DRIVER documented in this encounter Plan of Treatment Not on file documented as of this encounter Procedures Procedure Name Priority Date/Time Associated Diagnosis Comments SURGICAL PATHOLOGY Routine 05/16/2024 8: 46 AM COURIER DRIVER Pelvic pain in female LAPAROSCOPIC HYSTERECTOMY (SDEX) Same Day Recovery 05/16/2024 7:30 AM COURIER DRIVER Pelvic pain in female POCT URINE Routine 05/16/2024 7:03 AM COURIER DRIVER GLUCOSE, WHOLE BLOOD POCT Routine 05/16/2024 6:59 AM COURIER DRIVER BT SECOND DRAW Routine 05/16/2024 6:49 AM COURIER DRIVER TYPE AND SCREEN STAT 05/16/2024 6:41 AM COURIER DRIVER ANTIBODY SCREEN STAT 05/16/2024 6:41 AM COURIER DRIVER BLOOD TYPE STAT 05/16/2024 6:41 AM COURIER DRIVER HEMOGLOBIN, BLOOD STAT 05/16/2024 6:4 1 AM COURIER DRIVER documented in this encounter Results * Surgical Path (05/16/2024 8:46 AM COURIER DRIVER) Case Report Surgical Pathology Case: [id number] Authorizing Provider: Elli Warren MD Collected: 05/16/2024 0846 Ordering Location: Operating Room Received: 05/16/2024 0919 Pathologist: Radha Simms MD Specimens: A) - Fallopian Tube, right, Right Fallopian tube B) - Fallopian Tube, left, Left Fallopian Tube C) - Uterus, uterus and cervix 05/21/2024 3:34 PM [facility] FINAL DIAGNOSIS A. Fallopian tube, right, right salpingectomy: Fallopian tube with no diagnostic abnormality B. Fallopian tube, left, left salpingectomy: Fallopian tube with benign paratubal cyst C. Uterus and cervix, hysterectomy: Uterus with inactive endometrium, benign endometrial polyp, leiomyoma, and changes suggestive of focal serosal endometriosis Cervix with Nabothian cysts 05/21/2024 3:34 PM [facility] Clinical Information Pelvic pain in female 05/21/2024 3:34 PM [facility] Microscopic Description Microscopic examination is performed. 05/21/2024 3:34 PM [facility] Gross Description A: The specimen is received [...] lumen. No masses or lesions are identified. Chemical Treatment Plant Technician sections including the longitudinally bisected fimbria and [...] lumen. No masses or lesions are identified. Chemical Treatment Plant Technician sections including the longitudinally bisected fimbria and [...] aspects, 0.1-0.3 cm in greatest dimension. MYOMETRIUM: [place]-brink, finally trabeculated, 2.1 cm thick LEIOMYOMA(TA): There is a 0.3 cm in greatest dimension subserosal nodule TISSUE SUBMISSION: Chemical Treatment Plant Technician sections are submitted in 9 cassettes. 1. Anterior cervix (12:00) 2. Posterior cervix (6:00) 3. Anterior endomyometrium interface with polyp 4. Posterior endomyometrium interface with polyp 5. Chemical Treatment Plant Technician nodule 6. Additional posterior fundal polyp 7. Chemical Treatment Plant Technician serosal surface with smooth patch on posterior aspect 8. 3:00 cervix 9. 9:00 cervix. 05/21/2024 3:34 PM COURIER DRIVER [facility] Embedded Images 05/21/2024 3:34 PM [facility] Tissue ENTIRE RIGHT FALLOPIAN TUBE / Unknown 05/16/2024 8:46 AM COURIER DRIVER 05/16/2024 9:19 AM COURIER DRIVER Tissue specimen (specimen) ENTIRE LEFT FALLOPIAN TUBE / Unknown 05/16/2024 8:46 AM COURIER DRIVER 05/16/2024 9:19 AM COURIER DRIVER Tissue specimen (specimen) UTERINE STRUCTURE / Unknown 05/16/2024 9:13 AM COURIER DRIVER 05/16/2024 9:19 AM COURIER DRIVER Elli Warren MD LAB PATHOLOGY Performing Organization Address [facility] Co de Phone Number [address] * POCT urine (05/16/2024 7:03 AM COURIER DRIVER) Urine Test - POC Negative Negative POCT Control Line Present, Clear Background - Internal control Yes POCT Cartridge Lot# [id number] POCT Urine 05/16/2024 7:03 AM COURIER DRIVER Elli Warren MD ET POINT OF CARE EULA T ENTER/EDIT ORDERABLES Performing Organization Address [facility] de Phone Number POCT * Glucose, Whole Blood POCT (05/16/2024 6:59 AM COURIER DRIVER) Glucose, Whole Blood 74 70 - 180 mg/dL 05/16/2024 7:01 AM [facility] Performing Location [facility] 05/16/2024 7:01 AM [facility] Blood 05/16/2024 6:59 AM COURIER DRIVER 05/16/2024 7:01 AM COURIER DRIVER Elli Warren MD LAB_1 Performing Organization Address [facility] Co de Phone Number [address] * Blood Type second draw (05/16/2024 6:49 AM COURIER DRIVER) ABO B 05/16/2024 7:25 AM COURIER DRIVER [facility] Positive 05/16/2024 7:25 AM COURIER DRIVER [facility] Blood Venipuncture / Unknown 05/16/2024 6:49 AM COURIER DRIVER 05/16/2024 6:56 AM COURIER DRIVER Sandra King MD LAB_1 Performing Organization Address [facility] Phone Number [facility] [address] * Antibody Screen (05/16/2024 6:41 AM COURIER DRIVER) Antibody Screen Interpretation Negative 05/16/2024 7:32 AM COURIER DRIVER [facility] Blood Venipuncture / Unknown 05/16/2024 6:41 AM COURIER DRIVER 05/16/2024 6:53 AM COURIER DRIVER Elli Warren MD LAB_1 Performing Organization Address [facility] Phone [facility] B[facility]OD B[facility] [address] [place] [address] * Blood Type (05/16/2024 6:41 AM COURIER DRIVER) ABO B 05/16/2024 7:32 AM COURIER DRIVER [facility] Positive 05/16/2024 7:32 AM COURIER DRIVER [facility] Blood Venipuncture / Unknown 05/16/2024 6:41 AM COURIER DRIVER 05/16/2024 6:53 AM COURIER DRIVER Elli Warren MD LAB_1 Performing Organization Address [facility] Co de Phone Number [facility] [address] * Hemoglobin (05/16/2024 6:41 AM COURIER DRIVER) Hemoglobin 15.1 12.0 - 15.5 g/dL 05/16/2024 6:58 AM COURIER DRIVER [facility] Blood Venipuncture / Unknown 05/16/2024 6:41 AM COURIER DRIVER 05/16/2024 6:53 AM COURIER DRIVER Elli Warren MD LAB_[address] [address], [facility] documented in this encounter Visit Diagnoses Diagnosis Pelvic pain in female- Primary Unspecified symptom associated with female genital organs Pelvic pain in female Unspecified symptom associated with female genital organs * Plan of Care - Pascale Galeas RN - 05/16/2024 2:22 PM CST I completed a full assessment and assessments as ordered and per policy on this patient during my work shift. Reassessments completed during my work shift are unchanged unless documented. Pascale Galeas RN 05/16/2024, 2:22 PM IER DRIVER * Plan of Care - Neelima Nieves RN - 05/16/2024 10:49 AM CST I completed a full assessment and assessments as ordered and per policy on this patient during my work shift. Reassessments completed during my work shift are unchanged unless documented. IER DRIVER documented in this encounter Admitting Diagnoses Diagnosis [...] at 2321, Intra-op Given 05/16/2024 9:40 AM COURIER DRIVER 19 mL Wound Site calcium carbonate (TUMS) chewable tablet 1,000 mg 1,000 mg, Oral, ONCE, On Samia 05/16/24 at 1300, For 1 dose, Each tablet provides 200 mg elemental calcium Given 05/16/2024 1:05 PM COURIER DRIVER 1,000 mg dexAMETHasone (DECADRON) injection 4-8 mg [...] (SUBLIMAZE) injection 25-50 mcg 25-50 mcg, Intravenous, [id number], Pain, Starting on Samia 05/16/24 at 0941, [...] , PACU (only) Given 05/16/2024 10:40 AM COURIER DRIVER 25 mcg Given 05/16/2024 10:20 AM COURIER DRIVER 25 mcg hydrALAZINE (APRESOLINE) injection 5 mg [...] mg, PACU (only) Given 05/16/2024 10:20 AM COURIER DRIVER 0.2 mg hydrOXYzine pamoate (VISTARIL) capsule 25 [...] (NORMODYNE) injection 5 mg 5 mg, Intravenous, [id number], Blood Pressure >, Hypertension SBP greater than [...] at 0839, Intra-op Given 05/16/2024 8:39 AM COURIER DRIVER 15 g Wound Site metoprolol tartrate (LOPRESSOR) injection 1-2 mg 1-2 mg, Intravenous, [id number], Other, htn, Starting on Samia 05/16/24 at [...] PACU & Post-op Given 05/16/2024 10:30 AM COURIER DRIVER 1 Tablet documented in this encounter Active and Recently Administered Medications Times are shown in COURIER DRIVER. Scheduled Medication Order 05/14/2024 05/15/2024 05/16/2024 calcium carbonate (TUMS) chewable tablet 1,000 mg (COMPLETED) 1,000 mg, Oral, ONCE, On Samia 05/16/24 at 1300, For 1 dose, Each tablet provides 200 mg elemental calcium 1305 (Given - Provid er: Keshav Lira RN) ceFAZolin (ANCEF) 2 g in sterile [...] (SUBLIMAZE) injection 25-50 mcg 25-50 mcg, Intravenous, [id number], Pain, Starting on Samia 05/16/24 at 0941, [...] Starting on Samia 05/16/24 at 0941, Until Asmia 05/16/24 at 2321, PACU USE ONLY Use [...] Oral, ONCE PRN, Nausea/Vomiting, Starting on Samia 24 at 0941, Until Samia 05/16/24 at 2321, [...] (NORMODYNE) injection 5 mg 5 mg, Intravenous, [id number], Blood Pressure >, Hypertension SBP greater than [...] (LOPRESSOR) injection 1-2 mg 1-2 mg, Intravenous, [id number], Other, htn, Starting on Samia 05/16/24 at [...] tablets. documented in this encounter Care Teams Energy Derivatives Trader Relationship Specialty Start Date End Date Ankita Shannon MD [address] [place] [address] PCP - General Family Practice 05/16/24 documented as of this encounter
--- OUTSIDE RECORDS SUMMARY | 2024-06-20 15:02 | XMS_ITS | Encounter Summary ---
Author Organization [facility] Address [address], [place] [address] Care Team Providers Care Ring Conductor Name Role Phone Ankita Shannon MD Primary Care Provider +1- [phone] Reason for Visit * Reason Comments QUESTIONS, GENERAL Entered automaticall y based on patient selection in [employer]. Encounter Details Date Type Department Care Team (Late st Contact Info) Description 06/04/2024 2:50 PM PERSONAL HEALTH COACH E-Visit [facility] [address] [place] [address] Elli Warren MD [address] [place] [address] Chief Comp: QUESTIONS, GENERAL Social History Tobacco Use Types Packs/Day Years [...] Nursing Notes * Anna Hubbard RN - 06/04/2024 3:57 PM CST Called Mirtha as [employer] message unread. She is POD#19 from [facility], [facility]. She reports increased activity 2 days ago, with bleeding starting last night. Reviewed that mild bleeding/spotting can occur post-op. Advised her to continue to rest and monitor her symptoms and plan for post op visit as scheduled on 06/14. Advised to return call to clinic/Careline if bleeding worsens. Mirtha also reports dull pelvic pain when she is in a seated position for more than 10-15 minutes and is then sore for the remainder of the day. She is wondering if this is due to the removal of endometriosis from ligaments andif normal for this stage of recovery. Discussed that this could be from the excision of endometriosis and RN will seek additional insight from surgeon. She denies any fever, abdominal tenderness, odor, or other concerns for infection. She is managing her pain with OTC medications. Mirtha verbalizes understanding and will await response from provider. SEGUNDO VAUGHAN AH ROTARY SAW OPERATOR Triage 06/04/24 4:12 PM ONAL HEALTH COACH documented in this encounter Plan of Treatment Not on file documented as of this encounter Visit Diagnoses Not on filedocumented in this encounter Care Teams Ring Conductor Relationship Specialty Start Date End Date Ankita Shannon MD [address] [place] [address] PCP - General Family Practice 05/16/24 documented as of this encounter
--- OUTSIDE RECORDS SUMMARY | 2024-06-20 15:02 | XMS_ITS | Encounter Summary ---
Author Organization [facility] Address [address] [address] Care Team Providers Care Show Girl Name Role Phone Ankita Shannon MD Primary Care Provider +1- [phone] Reason for Visit * Reason Comments Surgery Scheduling Encounter Details Date Type Department Care Team (Late st Contact Info) Description 02/22/2024 Telephone [place] [facility] [place] [address] Elli Warren MD [address] [place], [place] [id number] Surgery Scheduling Social History Tobacco Use Types Packs/Day Years [...] as of this encounter Nursing Notes * Izabela Masterson - 02/29/2024 7:51 AM CDT Surgery scheduled at [facility] on 05/16/24 for LAPAROSCOPIC HYSTERECTOMY; BILATERAL SALPINGECTOMY; POSSIBLE EXCISION OF ENDOMETRIOSIS; CYSTOSCOPY. Pre-op and post-op scheduled. Brochure sent via Mail. Izabela Masterson 02/29/2024, 7:51 AM, * Izabela Masterson - 02/26/2024 2:17 PM CDT Unsuccessful reaching patient x2. Regarding scheduling surgery. Left voicemail with direct contact information. Letter Sent. Izabela Masterson 02/26/2024, 2:17 PM. * Izabela Masterson - 02/22/2024 11:07 AM CDT Unsuccessful reaching patient x1. Regarding scheduling surgery. Left voicemail with direct contact information. Izabela Masterson 02/22/2024, 11:07 AM. documented in this encounter Plan of Treatment Not on file documented as of this encounter Visit Diagnoses Not on filedocumented in this encounter Care Teams Show Girl Relationship Specialty Start Date End Date Ankita Shannon MD [address] [place] [address] PCP - General Family Practice 05/16/24 documented as of this encounter
--- OUTSIDE RECORDS SUMMARY | 2024-06-20 15:02 | XMS_ITS | Clinical Summary ---
Author Organization [facility] Address [place], [place] [address] Care Team Providers Care Corn Cooker Name Role Phone Deidre Reich Primary Care Provider +1 -[phone] Allergies Active Allergy Reactions Criticality Noted Date Comments Citalopram Rash High 07/31/2018 All SSRI's- Patient reported Medications Apri tablet Take 1 Tablet by mouth once daily. 4 02/07/20 25 Active amitriptyline (ELAVIL) 75 mg tablet Take 75 mg by mouth once daily. 4 Active pantoprazole (PROTONIX) 40 mg delayed-release tabletIndications:G astritis, presence of bleeding unspecified, unspecified chronicity, unspecified gastritis type Take 1 Tablet (40 mg) by mouth once daily. 90 Tablet 1 4 Active ondansetron (ZOFRAN ODT) 4 mg disintegrating tabletIndications:G astritis, presence of bleeding unspecified, unspecified chronicity, unspecified gastritis type Place 1 Tablet (4 mg) on the tongue every 8 hours if needed for Nausea/Vomi ting. 15 Tablet 2 4 Active famotidine (PEPCID) 40 mg tabletIndications:G astritis, presence of bleeding unspecified, unspecified chronicity, unspecified gastritis type Take 1 Tablet (40 mg) by mouth once daily. 90 Tablet 1 4 Active sucralfate (CARAFATE) 1 gram tabletIndications:G astritis, presence of bleeding unspecified, unspecified chronicity, unspecified gastritis type Take 1 Tablet (1 g) by mouth four times daily before meals and at bedtime. 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 Watching what she's eating, taking medication. Daily activities puts pressure - causes discomfort ) 04/30/2024 Telephone [facility] [address] [place] [address] Colt Cota MD Chart Review 04/30/2024 Travel 04/19/[address] [address] Ankita Shannon MD Refill Request (Sucralfate) 04/09/2024 2:40 PM MACHINERY DISMANTLER Office Visit [facility] [address] [place] [address] Ankita Shannon MD Follow Up; Abdominal Pain 04/09/2024 Travel 04/09/2024 Nurse Triage [address] [address] Ankita Shannon MD Questions; Abdominal Pain; Fatigue; Breathing Problem 04/02/2024 9:00 AM MACHINERY DISMANTLER Office Visit [address] [address] Ankita Shannon MD Nausea (thought it was related to hormonal bc. ); Gi Problem (Feeling a burning and uncomfortable sensation in the abdominal area. hx of taking high dose naproxen ) 04/02/2024 Travel from Last 3 Months Immunizations Name Administration Dates Next Due Hepatitis A (Adult) 05/11/2019 Influenza, IIV3 (Age >=3 years) 03/11/2024 Influenza, IIV4 05/23/2022 Influenza,CCIIV4 PRESERV FREE 05/11/2019 Tdap 06/07/2022 Family History Medical History Relation Name Comments Hyperlipidemia Father Cancer Maternal Grandfather Bladder cancer Diabetes type II Maternal Grandfather Interstitial cystitis Mother Brain cancer Paternal Grandfather Qeqmylh-Syczf-Njwlz disease Paternal Grandmother Stroke Paternal Grandmother No Known Problems Sister 1 No Known Problems Sister 2 No Known Problems Sister 3 Relation Name Status Comments Father Alive Maternal Grandfather Maternal Grandmother Mother Alive Paternal Grandfather Paternal Grandmother Sister 1 Alive Sister 2 Alive Sister 3 Alive Social History Tobacco Use Types Packs/Day Years Used Date Smoking Tobacco: Never Smokeless Tobacco: Never Tobacco Cessation:Counseling Given: Not Answered Alcohol Use Standard Drinks/Week Comments Yes 0 (1 standard drink = 0.6 oz pur e alcohol) Occassionally PHQ-2 Answer Date Recorded PHQ-2 TOTAL SCORE 1 06/14/2022 Social Connections Answer Date Recorded Do you often feel lonely or isolated from those around you? 0 04/02/2024 Financial Resource Strain Answer Date R ecorded Difficulty of Paying Living Expenses 3 04/02/2024 Difficulty of Paying Living Expenses Not on file 04/02/2024 Food Insecurity Answer Date Recorded Do you worry your food will run out before you are able to buy more? 1 04/02/2024 Transportation Needs Answer Date Record ed Does lack of transportation keep you from medica l appointments? 1 04/02/2024 Does lack of transportation keep you from work, meetings or getting things that you need? 1 04/02/2024 Housing Stability Answer Date Recorded What is your housing situation today? 1 04/02/2024 Utilities Answer Date Recorded Do you have trouble paying f or utilities (for example, heat, electricity, water, phone)? 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 Not on file Not on file Obstetrics History Last Filed Vital Signs Vital Sign Reading Time Taken Comments Blood Pressure 114/81 04/30/2024 9:12 AM MACHINERY DISMANTLER Pulse 101 04/30/2024 9:12 AM MACHINERY DISMANTLER Temperature - - Respiratory Rate - - Oxygen Saturation 98% 04/30/2024 9:12 AM MACHINERY DISMANTLER Inhaled Oxygen Concentration - - Weight 45.5 kg (100 lb 6.4 oz) 06/14/2022 8:04 A M MACHINERY DISMANTLER Height 161.6 cm (5' 3.62) 06/14/2022 8:04 AM CS T Body Mass Index 17.44 06/14/2022 8:04 AM MACHINERY DISMANTLER Plan of Treatment Scheduled Procedures Name Priority Associated Diagnoses Date/Ti me SURGICAL PROCEDURE (TYPE PROCEDURE DESCRIPTION BELOW) Gastritis, presence of bleeding unspecified, unspecified chronicity, unspecified gastritis type Health Maintenance Due Date Last Done Comments HIV for age 15-65 2001 Hepatitis C screening for age 18-79 01/17/2004 BMI (ht and wt on same day) for age 18+ 06/14/2023 06/14/2022, 09/03/2018, 07/31/2018 Depression screening for age 12+ 06/14/2023 06/14/2022, 07/31/2018 Pap test for age 21-65 06/07/2025 06/07/2022, 2022 Tetanus booster 06/07/2032 06/07/2022 Tdap Completed 06/07/2022 Influenza for age 9-49 Completed 4, 05/23/2022, 05/11/2019 COVID-19 vaccine series Completed 03/19/20 24, 05/23/2022, 11/26/2021, Additional history exists Pneumococcal series for age 6-49 Aged Out No longer eligible based on patient's age to complete this topic Procedures Procedure Name Priority Date/Time Associated Diagnosis Comments HPV HIGH RISK Routine 06/07/2022 12:00 PM MACHINERY DISMANTLER from Last 3 Months or Most Recently Relevant to Health Maintenance Results * HPV HIGH RISK (06/07/2022 12:00 PM MACHINERY DISMANTLER) TYPE 16 Negative Negative 06/14/2022 1:57 PM MACHINERY DISMANTLER [facility] TYPE 18 Negative Negative 06/14/2022 1:57 PM MACHINERY DISMANTLER [facility] OTHER HIGH RISK TYPES Negative Negative 06/14/2022 1:57 PM MACHINERY DISMANTLER [facility] Other (Cervical) 06/07/2022 12:00 PM MACHINERY DISMANTLER 06/10/2022 5:44 PM MACHINERY DISMANTLER Narrative [facility] - 06/14/2022 1:57 PM MACHINERY DISMANTLER HPV types 16, 18, 31, 33, 35, 39, 45, 51, 52, 56, 58, 59, 66 and 68 DNA were undetectable or below the pre-set threshold. Methodology: Day Alberto 4800 HPV Test august Jayjay ALONSO MICROBIOLOGY Final Resu lt [facility] [address] [place] [address], [place] from Last 3 Months or Most Recently Relevant to Health Maintenance Insurance [facility] Care Teams Corn Cooker Relationship Specialty Start Date End Date Deidre [place] [address] PCP - General Physician Carbonating Stone Cleaner 06/14/22
--- OUTSIDE RECORDS SUMMARY | 2024-06-20 15:02 | XMS_ITS | Encounter Summary ---
Author Organization [facility] Address [address] [place] [address] Care Team Providers Care Bingo Worker Name Role Phone Ankita Shannon MD Primary Care Provider [phone]- [phone] Reason for Visit * Reason Comments Post Op Exam DOS: 05/16/24 - LAPA ROSCOPIC HYSTERECTOMY; BILATERAL SALPINGECTOMY; CYSTOSCOPY (Bilateral) - Things are going pretty well, no real concerns Encounter Details Date Type Department Care Team (Latest Contact Info) Description 06/14/2024 2:00 PM WILDLAND FIRE OPERATIONS SPECIALIST Office Visit [facility] [address] [place] [address] Elli Warren MD [address] [place] [address] Postoperative follow-up (Primary Dx); S/P hysterectomy Social History Tobacco Use Types Packs/Day Years [...] Comments Blood Pressure 114/80 06/14/2024 2:10 PM WILDLAND FIRE OPERATIONS SPECIALIST Pulse 102 06/14/2024 2:10 PM WILDLAND FIRE OPERATIONS SPECIALIST Temperature - - Respiratory Rate - - Oxygen Saturation - - Inhaled Oxygen Concentration - - Weight 52.7 kg (116 lb 3.2 oz) 06/14/2024 2:10 P M WILDLAND FIRE OPERATIONS SPECIALIST Height - - Body Mass Index 20.58 05/16/2024 6:43 AM WILDLAND FIRE OPERATIONS SPECIALIST documented in this encounter Patient Instructions * Patient Instructions* Elli Warren MD - 06/14/2024 2:00 PM WILDLAND FIRE OPERATIONS SPECIALIST Keep slowly increasing activity, but wait on lifting more than 15 lbs for another two weeks. No strenuous exercise involving jumping for another two weeks. No vaginal intercourse/toys for another two weeks as well. Please message if any further spotting or bleeding, or any other postop concerns! LAND FIRE OPERATIONS SPECIALIST documented in this encounter Progress Notes * Elli Warren MD - 06/14/2024 2:00 PM CST OBGYN Postoperative Visit HPI Mirtha Garcia is a 39 y.o. who is 4 weeks postop from total laparoscopic hysterectomy and bilateral salpingectomy, performed for definitive management of dysmenorrhea. Intraoperative findings and pathology results reviewed. Mild endometriosis seen; normal ovaries which were preserved. She is feeling well overall. Fatigue still present but improving. Some positions sitting remain uncomfortable, but overall better than the first couple weeks postop. Episode of vaginal spotting last week, since resolved. No voiding concerns. Using miralax and colace to manage constipation. Recently some sleep issues, related to comfortable positions (usually side sleeper) and resting/napping during the day. Prescribed trazodone this week by her primary doc. 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 Patient Active Problem List Diagnosis Pelvic pain in female Exam BP 114/80 (BP Location: Right Arm, BP Cuff Size: Regular) Pulse (!) 102 Wt 116 lb 3.2 oz (52.7 kg) General: appears comfortable, no distress Chest: normal work of breathing Abdomen: soft, nontender, nondistended Pelvic: normal external genitalia and vaginal mucosa. Vaginal cuff intact, sutures visible, not tender and without bleeding. Pelvic floor tone relatively high, but not tender to palpation. Assessment/Plan 39 y.o. woman with severe dysmenorrhea, s/p laparoscopic hysterectomy. Recovering well. -- Can slowly increase activity, but wait for another two weeks before more strenuous exercise and lifting >15 lbs -- Endometriosis recurrence after hysterectomy is not common, but since ovaries are still present it is possible. Follow up if pelvic pain recurs. At this time no indication for hormonal treatment. -- Discussed no future screening paps needed since no dysplasia on pathology. Elli Warren MD LAND FIRE OPERATIONS SPECIALIST documented in this encounter Plan of Treatment Not on file documented as of this encounter Visit Diagnoses Diagnosis Postoperative follow-up- Primary Follow-up examination, following unspecified surgery S/P hysterectomy Acquired absence of both cervix and uterus documented in this encounter Care Teams Bingo Worker Relationship Specialty Start Date End Date Ankita Shannon MD [address] [place] [address] PCP - General Family Practice 05/16/24 documented as of this encounter
--- OUTSIDE RECORDS SUMMARY | 2024-06-20 15:02 | XMS_ITS | Encounter Summary ---
Author Organization [facility] Address [address] [place] [address] Care Team Providers Care Manager Story Name Role Phone Ankita Shannon MD Primary Care Provider [phone]- [phone] Encounter Details Date Type Department Care Team (Latest Contact Info) Description 05/16/2024 Orders Only [facility] DEPARTMENT ProviderMarth[place] [address] Social History Tobacco Use Types Packs/Day Years [...] on file documented as of this encounter Plan of Treatment Not on file documented as of this encounter Procedures Procedure Name Priority Date/Time Associated Diagnosis Comments EKG 05/16/2024 documented in this encounter Results * EKG (05/16/2024) Interface Provider EKG documented in this encounter Visit Diagnoses Not on filedocumented in this encounter Care Teams Manager Story Relationship Specialty Start Date End Date [place] [address] PCP - General Family Practice 05/16/24 documented as of this encounter
--- OUTSIDE RECORDS SUMMARY | 2024-06-20 15:02 | XMS_ITS | Encounter Summary ---
Author Organization [facility] Address [address], [place] [address] Care Team Providers Care Journeyman Pipefitter Name Role Phone Ankita Shannon MD Primary Care Provider +1- [phone] Encounter Details Date Type Department Care Team (Late st Contact Info) Description 06/20/2024 Nurse Triage [facility] [address] [place] [address] Elli Warren MD [address] [place], [place] [id number] Social History Tobacco Use Types Packs/Day Years [...] Nursing Notes * Anna Hubbard RN - 06/20/2024 2:01 PM CST Returned call to Mirtha. She is s/p TLH on 05/16/24. She reports worsening pain since post op visit on 06/14/24. She reports lower abdominal pain and pelvic pain that she rates 6/10, as well as vaginalpain where sutures are. Has been taking 1000 mg Tylenol every 6 hours, ice packs, helps some. Reports decrease in appetite and nausea due to pain. Reports swelling in lower abdominal swelling. Reports normal bowel habits. No urinary changes, pain only when bladder gets too full. Denies fever. Edilmaounds like she is very unwell and weak to RN. Advised evaluation in ED. Mirtha verbalizes understanding of recommendation and will proceed to ED. She plans to be seen at [place] [facility] as that is close to home. [facility] authorization on file for this facility. Routing to clinician to review clinic f/u with pt. ALEXUS, RN AH HOSTEL PARENT Triage 06/20/24 2:16 PM Reason for Disposition Patient sounds very sick or weak to the triager Protocols used: Post-Op Symptoms and [id number] DOMETER INSPECTOR * Page Chino - 06/20/2024 1:03 PM CST Symptoms - silk crepe machine operator: Are you ? no Describe your symptoms (if pain, include location): Procedure 05/16/24, now pain in lower abdomen where uterus used to be When did they start? Increased on Sat, continued and hasn't gotten better, more pain than she was having previous. Have you recently been seen for this? Yes, post op 06/14 but, The day after she that appt it started hurting worse If a prescription is needed, patient would like it filled at the pharmacy listed in Meds & Orders. What is a good number to reach you at? [phone] Preferred communication method: Phone Call. Is it okay to leave a detailed message on your voicemail? Yes DOMETER INSPECTOR documented in this encounter Plan of Treatment Not on file documented as of this encounter Visit Diagnoses Not on filedocumented in this encounter Care Teams Journeyman Pipefitter Relationship Specialty Start Date End Date Ankita Shannon MD [address] [place] [address] PCP - General Family Practice 05/16/24 documented as of this encounter
--- OUTSIDE RECORDS SUMMARY | 2024-06-20 15:02 | XMS_ITS | Encounter Summary ---
Author Organization [facility] Address [address], [place] [address] Care Team Providers Care Excavator Operator Name Role Phone Ankita Shannon MD Primary Care Provider [phone]- [phone] Reason for Visit * Reason Comments Concerns Encounter Details Date Type Department Care Team (Late st Contact Info) Description 05/27/2024 E-Visit [facility] [address] [place] [address] Elli Warren MD [address] [place] [address] Dx: Yeast vaginitis (Primary Dx) Social History Tobacco Use Types [...] Nursing Notes * Anna Hubbard RN - 05/27/2024 12:25 PM CST Mirtha Garcia is a 39 y.o. old reporting the following vaginal symptoms: Vaginal itching and Vulvar and/or vaginal burning Patient has the following serious or complicating symptoms present. If any of the following symptoms present, patient should be scheduled for a clinician visit: none Reviewed allergies, , and status: Yes Plan: RN will treat per standing order. Provided patient education: Follow-up with clinician if symptoms do not improve within 5-7 days or symptoms change or worsen. Keep using your medicine if you start your period. Use pads instead of tampons while using a vaginal cream or suppository. Tampons can absorb the medicine. Wear loose cotton clothing. Do not wear nylon and other materials that hold body heat and moisture close to the skin. Try sleeping without underwear. Wear loose cotton clothing. Do not wear nylon and other materials that hold body heat and moisture close to the skin. Do not douche. Do not wash your vaginal area more than once a day. Use plain water or a mild, unscented soap. Air-dry the vaginal area. Refrain from intercourse during treatment. Change out of wet swimsuits after swimming. Mirtha is 11 days post-op from [facility] with BS. Oral Diflucan ordered as she should refrain from inserting anything into her vagina for another 4 weeks. Teaching done via [employer] messaging. SEGUNDO VAUGHAN ROUGH ROUNDER Triage 05/27/24 12:26 PM ER CENTER DIRECTOR * Anna Hubbard RN - 05/27/2024 11:24 AM CST Returned call to pt Mirtha. LMTCB and/or check Views[employer] for message. SEGUNDO VAUGHAN ROUGH ROUNDER Triage 05/27/24 11:26 AM ER CENTER DIRECTOR * Norma Charles I - 05/27/2024 11:12 AM CST Symptoms - zyglo inspector Are you ? No, No LMP recorded. (Menstrual status: Continuous hormonal contraception). Describe your symptoms (if pain, include location): Pt is in post op recovery and has noticed some vaginal itching and burning. When did they start? Yesterday Have you recently been seen for this? No If a prescription is needed, patient would like it filled at the pharmacy listed in Meds & Orders. What is a good number to reach you at? Mobile Preferred communication method: Phone Call. Is it okay to leave a detailed message on your voicemail? Yes ER CENTER DIRECTOR documented in this encounter Plan of Treatment Not on file documented as of this encounter Visit Diagnoses Diagnosis Yeast vaginitis- Primary Candidiasis of vulva and vagina documented in this encounter Care Teams Excavator Operator Relationship Specialty Start Date End Date Ankita Shannon MD [address] [place] [address] PCP - General Family Practice 05/16/24 documented as of this encounter
--- OUTSIDE RECORDS SUMMARY | 2024-06-20 15:02 | XMS_ITS | Encounter Summary ---
Author Organization [facility] Address [address], [place] [address] Care Team Providers Care Charge Weigher Name Role Phone Ankita Shannon MD Primary Care Provider +1- [phone] Reason for Visit * Reason Comments Forms/Letter Entered automaticall y based on patient selection in [employer]. Encounter Details Date Type Department Care Team (Late st Contact Info) Description 06/19/2024 2:40 PM DIRECTOR BEHAVIORAL HEALTH E-Visit [facility] [address] [place] [address] Elli Warren MD [address] [place] [address] Chief Comp: Forms/Letter Social History Tobacco Use Types Packs/Day Years [...] as of this encounter Nursing Notes * Jacklyn Jacobs - 06/20/2024 9:31 AM CST Forms sent to for completion Jacklyn Jacobs 06/20/2024, 9:31 AM CTOR BEHAVIORAL HEALTH * Vaishnavi Finley - 06/19/2024 3:32 PM CST Forms printed and placed in the basket at part time receptionist. CTOR BEHAVIORAL HEALTH documented in this encounter Plan of Treatment Not on file documented as of this encounter Visit Diagnoses Not on filedocumented in this encounter Care Teams Charge Weigher Relationship Specialty Start Date End Date Ankita Shannon MD [address] [place] [address] PCP - General Family Practice 05/16/24 documented as of this encounter
--- OUTSIDE RECORDS SUMMARY | 2024-06-20 15:02 | XMS_ITS | Encounter Summary ---
Author Organization [facility] Address [address], [place] [address] Care Team Providers Care Bilingual Middle School Teacher Name Role Phone Ankita Shannon MD Primary Care Provider +1- [phone] Reason for Visit * Reason Comments Patient Calling Back RESULTS, TEST Encounter Details Date Type Department Care Team (Late st Contact Info) Description 05/24/2024 Telephone [facility] [address] [place] [address] Elli Warren MD [address] [place], [place] [id number] Patient Calling Back; RESULTS, TEST Social History Tobacco Use Types Packs/Day Years [...] as of this encounter Nursing Notes * Elli Warren MD - 05/24/2024 5:39 PM CST Called pt to review - postop course going well, pain controlled with tylenol at this point. No voiding issues. Discussed evidence of endometriosis - unlikely this will worsen significantly requiring more surgery in the future, but we will monitor for pain symptoms down the road. We also have option of adding back COCs if needed for dysmenorrhea, though we don't anticipate this will be needed. Discussed postop restrictions, when to call. Has postop scheduled at 4 weeks. Elli Warren MD CULTURE SCIENCE TEACHER * Angela Keen, RN - 05/24/2024 3:32 PM CST Returned pt call, pt did see result on mychart and is requesting that return her call asshe has a couple questions regarding the pathology. Sending to provider to review and advise pt request. SM, RN, SP FRONT DESK ATTENDANT, 05/24/2024, 3:33 PM CULTURE SCIENCE TEACHER * April Rock - 05/24/2024 3:25 PM CST Test Results: Received patient returning message, received direct from Dr. Warren prior to clinician releasing results of 05/16/24 Pathology to patient online. Patient advised to check OPS account while awaiting Nurse call back. What is a good number to reach you at? Mobile phone Preferred communication method: Phone Call. Is it okay to leave a detailed message on your voicemail? Yes Is there anything else I can help you with today? Andreia NG Clinical Hat Brim And Crown Laminating Operator 05/24/2024 3:28 PM CULTURE SCIENCE TEACHER documented in this encounter Plan of Treatment Not on file documented as of this encounter Visit Diagnoses Not on filedocumented in this encounter Care Teams Bilingual Middle School Teacher Relationship Specialty Start Date End Date Ankita Shannon MD [facility] [place] [address] PCP - General Family Practice 05/16/24 documented as of this encounter
--- OUTSIDE RECORDS SUMMARY | 2024-06-20 15:02 | XMS_ITS | Encounter Summary ---
Author Organization Formerly [facility], 1928–1983 Address [address] [address] Care Team Providers Care Circle Saw Operator Name Role Phone Ankita Shannon MD Primary Care Provider [phone]- [phone] Reason for Visit * Reason Comments Follow-up bleeding Encounter Details Date Type Department Care Team (Late st Contact Info) Description 06/04/2024 Telephone [facility] [place] [address] Elli Warren MD [address], [place] [id number] Follow-up (bleeding) Social History Tobacco Use Types Packs/Day Years [...] Notes * Anna Hubbard RN - 06/04/2024 3:29 PM CST Pt previously initiated E-visit for this concern. See E-visit 06/04/24 for additional details and documentation. SEGUNDO VAUGHAN AH BED TEACHER Triage 06/04/24 3:30 PM RGLASS CONTAINER WINDING OPERATOR * Keya Armendariz - 06/04/2024 3:27 PM CST Other Questions/Concerns/FYI Is this a symptom? No What is your question or concern? Patient calling in regarding bleeding, Surgery was 05.16, please review and advise. Have you recently been seen for this? No Preferred communication method: Phone Call. Is it okay to leave a detailed message on your voicemail? Yes Is there anything else I can help you with today? No RGLASS CONTAINER WINDING OPERATOR documented in this encounter Plan of Treatment Not on file documented as of this encounter Visit Diagnoses Not on filedocumented in this encounter Care Teams Circle Saw Operator Relationship Specialty Start Date End Date Ankita Shannon MD [address] [place] [address] PCP - General Family Practice 05/16/24 documented as of this encounter
--- NOTE | 2024-06-20 15:36 | ED_ITS ---
HPI - General Adult General Chief complaint: Post Op Complication Stated complaint: 5 wks Post, pain/swelling at hysterectomy incision Time Seen by Provider: 06/20/24 15:27 History of Present Illness HPI narrative: Pt had a hysterectomy done at [facility] 5 weeks ago. Started having pain Saturday night in lower abdomen and at site of incisions. Site of incision on lower left abdomen does not appear inflamed. Denies discharge from incision sites. Pain worse with sitting. Says she feels swollen in her lower abdomen. Has been feeling hot and cold. Is nauseous, denies any vomiting. Has had a suppressed appetite over the weekend. No issues with bowel movements . Is routinely taking Tylenol q6h. 39-year-old woman presenting to the emergency department with complaint of increasing lower abdominal discomfort. She is weeks status post laparoscopic vaginal hysterectomy. This was done for endometriosis. She now feels more swollen in her low abdomen. Particularly hurts in the vaginal incisions she says when she goes to sit. Hurts generally. [place] hot and cold yesterday. No fever measured. Having normal bowel movements. Pain had gotten markedly better and now it is escalating. She has been taking acetaminophen. There is no unusual drainage. Not having swelling apparent at surgical sites. Six days ago had postop follow-up and everything looked good she said. Revisiting history, had been feeling increasingly uncomfortable with sitting for a few weeks and that seemed to lessen little bit around the time of her last appointment and now is back. Related Data Home Medications ?Medication ?Instructions ?Recorded ?Confirmed amitriptyline 25 mg tablet 25 mg PO QPM 07/18/23 07/18/23 amitriptyline 75 mg tablet 75 mg PO DAILY 06/20/24 06/20/24 famotidine 40 mg tablet 40 mg PO DAILY 06/20/24 06/20/24 pantoprazole 40 mg tablet,delayed 40 mg PO DAILY 06/20/24 06/20/24 release trazodone 50 mg tablet 50 - 100 mg PO QPM PRN 06/20/24 06/20/24 Allergies Allergy/AdvReac Type Severity Reaction Status Date / Time ssri's Allergy Mild rash Uncoded 06/07/22 13:50 walnuts Allergy Mild burning Uncoded 07/18/23 11:38 and sores on tongue Review of Systems Status of ROS: Reports: 6 or more systems reviewed and unremarkable except as noted in History and below [facility] Medical History Lyme disease of inner ear ?A69.29 - Other conditions associated with Lyme disease (ICD-10) ?H83.8X9 - Other specified diseases of inner ear, unspecified ear (ICD-10) Right foot injury ?S99.921A - Unspecified injury of right foot, initial encounter (ICD-10) Family History Maternal Grandmother Heart disease Paternal Grandmother Stroke Family/Other High cholesterol Maternal Grandfather Diabetes Bladder cancer Father FH: mental illness Family/Other Eclhhmx-Pumrf-Dhrcs disease Social History 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 Nonsmoker. No alcohol use. No concerns with safety or abuse. . Smoking Status: Never smoker Do you use any of these nicotine containing products: None Second hand tobacco smoke exposure: No How often do you have a drink containing alcohol: never AUDIT-C Alcohol total score: 0 Non-prescribed substance use: denies use Exam Narrative: Exam Narrative: Calm. Breathing easily. Heart in regular rate and rhythm. Abdomen is soft. Mildly uncomfortable in the low abdomen. Can not appreciate mass. Well-healing trocar sites. No inflammatory changes or clear swelling. Genitourinary exam was not done. Const: Vital Signs, click to edit/add: Vital Signs - 24 hr 06/20/24 15:04 06/20/24 16:42 06/20/24 17:00 Temperature 99.6 F Pulse Rate 89 96 Pulse Rate [Right Pulse Oximeter] 91 Respiratory Rate 18 16 Blood Pressure Blood Pressure [Ri ght Upper Arm] 115/74 Pulse Oximetry 99 100 99 Oxygen Delivery Me thod Room Air Room Air Room Air 06/20/24 17:01 06/20/24 17:31 06/20/24 17:40 Temperature Pulse Rate 95 98 Pulse Rate [Right Pulse Oximeter] Respiratory Rate 16 Blood Pressure 118/74 117/80 Blood Pressure [Ri ght Upper Arm] Pulse Oximetry 100 99 Oxygen Delivery Me thod Room Air Room Air Room Air Documenting provider has reviewed patient's vital signs: yes Course Vital Signs Vital signs: Initial Vital Signs Temperature 99.6 F 06/20/24 15:04 Temperature Source Temporal Artery Scan 06/20/24 15:04 Pulse Rate 91 06/20/24 15:04 Pulse Rhythm Regular 06/20/24 15:04 Respiratory Rate 18 06/20/24 15:04 Blood Pressure 115/74 06/20/24 15:04 Blood Pressure Mean 87 06/20/24 15:04 Blood Pressure Position Sitting 06/20/24 15:04 Pulse Oximetry 99 06/20/24 15:04 Oxygen Delivery Method Room Air 06/20/24 15:04 Vital Signs Temperature 99.6 F 06/20/24 15:04 Pulse Rate 91 06/20/24 15:04 Respiratory Rate 18 06/20/24 15:04 Blood Pressure 115/74 06/20/24 15:04 Pulse Oximetry 99 06/20/24 15:04 Oxygen Delivery Method Room Air 06/20/24 15:04 Temperature 99.6 F 06/20/24 15:04 Pulse Rate 95 06/20/24 18:01 Respiratory Rate 16 06/20/24 18:01 Blood Pressure 116/79 06/20/24 18:01 Pulse Oximetry 99 06/20/24 18:01 Oxygen Delivery Method Room Air 06/20/24 18:01 Medications Administered Medications: Discontinued Medications Generic Name Dose Route Start Last Admin Trade Name Freq PRN Reason Stop Dose Admin Sodium Chloride 500 mls @ 500 mls/hr 06/20/24 15:49 06/20/24 16:46 0.9 % Sodium Chloride 500 Ml IV 06/20/24 16:48 500 mls/hr .Q1H ONE Administration Ketorolac Tromethamine 15 mg 06/20/24 16:14 06/20/24 16:20 Ketorolac 15 Mg/Ml Inj IVP 06/20/24 16:15 15 mg ONCE ONE Administration Medical Decision Making MDM Narrative Medical decision making narrative: Differential includes seroma or hematoma, infection postop, constipation. Does not appear to have a bowel obstruction. Urinary tract infection or urinary retention. Considering recent surgery a will need imaging to at least evaluate for the 1st few in the differential Labs as well. Initially does not feel she needs anything for pain or nausea. Is ordered for normal saline. With increase in discomfort is given ketorolac later. Labs are reassuring. I did independently review CT imaging. I do not see any discrete fluid collections to suggest abscess formation or other significant collection of fluid. INDICATION: Increasing post hysterectomy pain and swelling TECHNIQUE: CT abdomen and pelvis acquired with 55 cc Omnipaque 350 IV contrast. COMPARISON: None. FINDINGS: Lower chest: Unremarkable. Liver: Unremarkable. Gallbladder and bile ducts: Unremarkable. Pancreas: Unremarkable. Spleen: Unremarkable. Adrenal glands: Unremarkable. Kidneys: Unremarkable. GI tract: No obstruction. Fecalization of distal small bowel loop contents. No appendix visualized, but there are no secondary signs of inflammation in the right lower quadrant. Vasculature: Abdominal aorta is normal in caliber. Mesenteric arteries are patent. Lymph nodes: No lymphadenopathy. Peritoneum/Abdominal Wall: Soft tissue stranding and trace ascites in the pelvis. Pelvis: Post hysterectomy. Incompletely distended bladder is unremarkable. Bones: Unremarkable for age. IMPRESSION: Soft tissue stranding and trace ascites in the pelvis, likely related to recent hysterectomy. Fecalization of distal small bowel loop contents can be seen with slow transit/constipation. Certainly postoperative would be set up for constipation. Discussed treatment for this. This might be contributing to discomfort. Otherwise symptoms improved to unchanged. See patient discharge plan for further discussion Unfortunately we are not able to transmit these images to [facility] but getting the read to your surgeon/care team would be helpful otherwise. Also sending you with a copy of images are on a disc I do not know if your discomfort is only related to the stool in the small bowel but it might benefit to do a little bowel clean out. This might be with magnesium citrate as discussed. Otherwise senna products help with transit. At this point it does not look like an enema would be yet helpful. Continue to stay well-hydrated. Try to increase your fiber intake. I suppose would continue the MiraLax. Return for marked increase in pain, fever, repeated related vomiting. Medical Records Medical records reviewed: Yes I reviewed the patient's medical records Lab Data Lab results reviewed: Yes I reviewed the patient's lab results Labs: Lab Results 06/20/24 06/20/24 Range/Units 15:55 16:05 WBC 5.53 (4.50-11.00) K/uL RBC 4.97 (4.00-5.20) m/uL Hgb 14.4 (12.0-16.0) gm/dL Hct 44.2 (33.0-51.0) % MCV 89 (80-100) fL MCH 29 (26-34) pg MCHC 33 (32-36) gm/dL RDW Coeff of Ruchi 12.2 (11.5-15.5) % Plt Count 170 (140-440) K/uL Neut % (Auto) 63.9 (42.0-72.0) % Lymph % (Auto) 25.3 (20-44) % [place] % (Auto) 6.3 (0.0-11.0) % Eos % (Auto) 3.8 (0.0-7.0) % Baso % (Auto) 0.5 (0.0-3.0) % Neut # (Auto) 3.53 (1.7-7.0) K/uL Lymph # (Auto) 1.40 (0.90-2.90) K/uL [place] # (Auto) 0.30 (0.00-0.90) K/UL Eos # (Auto) 0.21 (0.00-0.50) K/uL Baso # (Auto) 0.03 (0.00-0.30) K/uL Abs Immat Gran (auto) 0.01 (0.00-0.30) K/uL Imm/Tot Granulo (auto) 0.2 % Sodium 140 (135-149) mmol/L Potassium 3.7 (3.6-5.1) mmol/L Chloride 103 (96-114) mmol/L Carbon Dioxide 29 (20-32) mmol/L Anion Gap 8 (7-15) mEq/L BUN 11 (5-24) mg/dL Creatinine 0.6 (0.5-1.5) mg/dL Estimated Creat Clear 101.96 Estimated GFR 118 ml/min Glucose 105 (60-115) mg/dL Calcium 9.3 (8.4-10.6) mg/dL C-Reactive Protein < 0.5 L (0.5-1.0) mg/dL Urine Color Yellow (Yellow) Urine Appearance Clear (Clear) Urine pH 6.0 (5.0-8.5) Ur Specific [place] <= 1.005 (1.000-1.030) Urine Protein Negative (Negative) Urine Glucose (UA) Negative (Negative) Urine Ketones Negative (Negative) Urine Blood Negative (Negative) Urine Nitrite Negative (Negative) Urine Bilirubin Negative (Negative) Urine Urobilinogen 0.2 (0.2-1.0) Ur Leukocyte Esterase Negative (Negative) Urine RBC 0-2 (0-2) Urine WBC 0-2 (0-5) Ur Squamous Epith Cells None (None-Few) Urine Bacteria None (None) Discharge Plan Discharge Clinical Impression: Postoperative abdominal pain Patient Disposition: Home w/ Parent or Adult Condition: Stable Instructions: Constipation (DC) Additional Instructions: Unfortunately we are not able to transmit these images to [facility] but getting the read to your surgeon/care team would be helpful otherwise. Also sending you with a copy of images are on a disc I do not know if your discomfort is only related to the stool in the small bowel but it might benefit to do a little bowel clean out. This might be with magnesium citrate as discussed. Otherwise senna products help with transit. At this point it does not look like an enema would be yet helpful. Continue to stay well-hydrated. Try to increase your fiber intake. I suppose would continue the MiraLax. Return for marked increase in pain, fever, repeated related vomiting. Prescriptions: No Action amitriptyline 25 mg tablet 25 mg PO QPM trazodone 50 mg tablet 50 - 100 mg PO QPM PRN amitriptyline 75 mg tablet 75 mg PO DAILY famotidine 40 mg tablet 40 mg PO DAILY pantoprazole 40 mg tablet,delayed release (DR/EC) 40 mg PO DAILY Follow Up/Referrals: Provider,Not a Local [Primary Care Provider] - Stand Alone Forms: [employer] Info Instructions
--- NOTE | 2024-06-20 15:47 | CRLHL7_ITS ---
For Patients: As a result of the Century Cures Act, medical imaging exams and procedure reports are released immediately into your electronic medical record. You may view this report before your referring provider. If you have questions, please contact your health care provider. INDICATION: Increasing post hysterectomy pain and swelling TECHNIQUE: CT abdomen and pelvis acquired with 55 cc Omnipaque 350 IV contrast. COMPARISON: None. FINDINGS: Lower chest: Unremarkable. Liver: Unremarkable. Gallbladder and bile ducts: Unremarkable. Pancreas: Unremarkable. Spleen: Unremarkable. Adrenal glands: Unremarkable. Kidneys: Unremarkable. GI tract: No obstruction. Fecalization of distal small bowel loop contents. No appendix visualized, but there are no secondary signs of inflammation in the right lower quadrant. Vasculature: Abdominal aorta is normal in caliber. Mesenteric arteries are patent. Lymph nodes: No lymphadenopathy. Peritoneum/Abdominal Wall: Soft tissue stranding and trace ascites in the pelvis. Pelvis: Post hysterectomy. Incompletely distended bladder is unremarkable. Bones: Unremarkable for age. IMPRESSION: Soft tissue stranding and trace ascites in the pelvis, likely related to recent hysterectomy. Fecalization of distal small bowel loop contents can be seen with slow transit/constipation. Please note that all CT scans at this facility use dose modulation, iterative reconstruction, and/or weight-based dosing when appropriate to reduce radiation dose to as low as reasonably achievable. Dictated by Bridgette Lugo MD @ 06/20/2024 5:23:03 PM (Electronically Signed)
[2024-06-20 16:06] LABS: Appearance Urine Clear (Clear); Bilirubin Urine Negative (Negative); Blood Urine Negative (Negative); Color Urine Yellow (Yellow); Glucose Urine Negative (Negative); Ketones Urine Negative (Negative); Leukocyte Esterase Urine Negative (Negative); Nitrite Urine Negative (Negative); Protein Urine Negative (Negative); Specific Gravity Urine <= 1.005 (1.000-1.030); Urobilinogen Urine 0.2 (0.2-1.0)
[2024-06-20 16:18] LABS: Basophils Absolute Auto 0.03 K/uL (0.00-0.30); Basophils Percent Auto 0.5 % (0.0-3.0); Eosinophils Absolute Auto 0.21 K/uL (0.00-0.50); Eosinophils Percent Auto 3.8 % (0.0-7.0); Hematocrit 44.2 % (33.0-51.0); Hemoglobin* 14.4 gm/dL (12.0-16.0); Immature Granulocytes Abs Auto 0.01 K/uL (0.00-0.30); Immature Granulocytes Pct Auto 0.2 %; Lymphocytes Percent Auto 25.3 % (20-44); Mean Corpuscular HGB Conc 33 gm/dL (32-36); Mean Corpuscular Hemoglobin 29 pg (26-34); Mean Corpuscular Volume 89 fL (80-100); Monocytes Percent Auto 6.3 % (0.0-11.0); Neutrophils Absolute Auto 3.53 K/uL (1.7-7.0); Neutrophils Percent Auto 63.9 % (42.0-72.0); Platelet Count* 170 K/uL (140-440); RDW Coefficient of Variation % 12.2 % (11.5-15.5); Red Blood Count 4.97 m/uL (4.00-5.20); White Blood Count* 5.53 K/uL (4.50-11.00)
[2024-06-20] MEDS: KETOROLAC 15 MG/ML inj IVP (16:20)
[2024-06-20 16:23] LABS: Slide Review Reflex No
[2024-06-20 16:25] LABS: Chloride* 103 mmol/L (96-114); Potassium* 3.7 mmol/L (3.6-5.1); Sodium* 140 mmol/L (135-149)
[2024-06-20 16:27] LABS: Creatinine* 0.6 mg/dL (0.5-1.5); Est. Creatinine Clearance* 101.96; Estimated Glomerular Filt Rate 118 ml/min
[2024-06-20 16:28] LABS: Anion Gap 8 mEq/L (7-15); Carbon Dioxide* 29 mmol/L (20-32)
[2024-06-20 16:29] LABS: Blood Urea Nitrogen* 11 mg/dL (5-24); Calcium* 9.3 mg/dL (8.4-10.6); Glucose* 105 mg/dL (60-115)
[2024-06-20] MEDS: 0.9 % SODIUM CHLORIDE 500 ML 500 ML IV (16:46)
[2024-06-20 16:53] LABS: C Reactive Protein* < 0.5 mg/dL (0.5-1.0)
[2024-06-20 17:32] LABS: RBC Urine 0-2 (0-2); WBC Urine 0-2 (0-5)
--- OUTSIDE RECORDS SUMMARY | 2024-06-20 17:48 | XMS_ITS | Clinical Summary ---
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 Watching what she's eating, taking medication. Daily activities puts pressure - causes discomfort ) 04/30/2024 Telephone [facility] [address] [place] [address] Colt Cota MD Chart Review 04/30/2024 Travel 04/19/[address] [address] Ankita Shannon MD Refill Request (Sucralfate) 04/09/2024 2:40 PM MAINTENANCE MECHANIC HELPER Office Visit [facility] [address] [place] [address] Ankita Shannon MD Follow Up; Abdominal Pain 04/09/2024 Travel 04/09/2024 Nurse Triage [address] [address] Ankita Shannon MD Questions; Abdominal Pain; Fatigue; Breathing Problem 04/02/2024 9:00 AM MAINTENANCE MECHANIC HELPER Office Visit [address] [address] Ankita Shannon MD Nausea (thought it was [...] Interstitial cystitis Mother Brain cancer Paternal Grandfather Nagrxmj-Bpkbn-Mknid disease Paternal Grandmother Stroke Paternal Grandmother No [...] on file Legal Sex Female 9:18 AM MAINTENANCE MECHANIC HELPER Gender Identity Not on file Sexual Orientation Not on file 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 Not on file Not on file Obstetrics History Last Filed Vital Signs Vital Sign Reading Time Taken Comments Blood Pressure 114/81 04/30/2024 9:12 AM MAINTENANCE MECHANIC HELPER Pulse 101 04/30/2024 9:12 AM MAINTENANCE MECHANIC HELPER Temperature - - Respiratory Rate - - Oxygen Saturation 98% 04/30/2024 9:12 AM MAINTENANCE MECHANIC HELPER Inhaled Oxygen Concentration - - Weight 45.5 kg (100 lb 6.4 oz) 06/14/2022 8:04 A M MAINTENANCE MECHANIC HELPER Height 161.6 cm (5' 3.62) 06/14/2022 8:04 AM CS T Body Mass Index 17.44 06/14/2022 8:04 AM MAINTENANCE MECHANIC HELPER Plan of Treatment Scheduled Procedures Name Priority [...] HPV HIGH RISK Routine 06/07/2022 12:00 PM MAINTENANCE MECHANIC HELPER from Last 3 Months or Most Recently Relevant to Health Maintenance Results * HPV HIGH RISK (06/07/2022 12:00 PM MAINTENANCE MECHANIC HELPER) TYPE 16 Negative Negative 06/14/2022 1:57 PM MAINTENANCE MECHANIC HELPER [facility] TYPE 18 Negative Negative 06/14/2022 1:57 PM MAINTENANCE MECHANIC HELPER [facility] OTHER HIGH RISK TYPES Negative Negative 06/14/2022 1:57 PM MAINTENANCE MECHANIC HELPER [facility] Other (Cervical) 06/07/2022 12:00 PM MAINTENANCE MECHANIC HELPER 06/10/2022 5:44 PM MAINTENANCE MECHANIC HELPER Narrative [facility] - 06/14/2022 1:57 PM MAINTENANCE MECHANIC HELPER HPV types 16, 18, 31, 33, 35, 39, 45, 51, 52, 56, 58, 59, 66 and 68 DNA were undetectable or below the pre-set threshold. Methodology: Day Alberto 4800 HPV Test august Jayjay ALONSO MICROBIOLOGY Final Resu lt [facility] [address] [place] [address], [place] from Last 3 Months or Most Recently Relevant to Health Maintenance Insurance [facility] [place] [address] Care Teams Penology Teacher Relationship Specialty Start Date End Date Deidre [place] [address] PCP - General Physician Forklift Technician 06/14/22
--- OUTSIDE RECORDS SUMMARY | 2024-06-20 17:48 | XMS_ITS | Encounter Summary ---
Author Organization [facility] Address [address], [place] [address] Care Team Providers Care Mason Tender Restoration Labor Name Role Phone Ankita Shannon MD Primary Care Provider [phone]- [phone] Reason for Visit * Reason Comments Forms/Letter Entered automaticall y based on [facility] selection [facility] [place] Encounter Details Date Type Department Care Team (Late st Contact Info) Description 06/19/2024 2:40 PM BIOLOGICAL SCIENCE TECHNICIAN FISH E-Visit [facility] [address] [place] [address] Elli Warren MD [address] [place] [address] Chief Comp: Forms/Letter Social History Tobacco Use [...] for completion Jacklyn Jacobs 06/20/2024, 9:31 AM OGICAL SCIENCE TECHNICIAN FISH * Vaishnavi Finley - 06/19/2024 3:32 PM CST Forms printed and placed in the basket at medical reception. OGICAL SCIENCE TECHNICIAN FISH documented in this encounter Plan of Treatment Not on file documented as of this encounter Visit Diagnoses Not on filedocumented in this encounter Care Teams Mason Tender Restoration Labor Relationship Specialty Start Date End Date Ankita Shannon MD [address] [place] [address] PCP - General Family Practice 05/16/24 documented as of this encounter
--- OUTSIDE RECORDS SUMMARY | 2024-06-20 17:48 | XMS_ITS | Clinical Summary ---
Author Organization [facility] Address [address] [place] [address] 52387 Care Team Providers Care Fishing Game Warden Name Role Phone Ankita Shannon MD Primary Care Provider +1- [phone] Source Comments You are receiving this document [...] for each transition of care or referral. [facility] Allergies Active Allergy Reactions Criticality Noted Date [...] Department Care Team Description 06/20/2024 Nurse Triage [facility] [address] [place] [address] [phone] Elli Warren MD 06/19/2024 2:40 PM FOUNDER PRESIDENT AND CEO E-Visit [facility] [address] [place] [address] 89498 Elli Warren MD Chief Comp: Forms/Letter 06/18/2024 10:00 AM FOUNDER PRESIDENT AND CEO E-Visit [facility] [address] [place] [address] 30205 Elli Warren MD Dx: Pelvic floor dysfunction in female (Primary Dx) 06/14/2024 2:00 PM FOUNDER PRESIDENT AND CEO Office Visit [facility] [address] [place] [address] 22832 Elli Warren MD Postoperative follow-up (Primary Dx); S/P hysterectomy 06/04/2024 2:50 PM FOUNDER PRESIDENT AND CEO E-Visit [facility] [address] [place] [address] 51979 Elli Warren MD Chief Comp: QUESTIONS, GENERAL 06/04/2024 Telephone [facility] [address] [place] [address] 41370 Elli Warren MD Follow-up (bleeding) 05/27/2024 E-Visit [facility] [address] [place] [address] 40947 Elli Warren MD Dx: Yeast vaginitis (Primary Dx) 05/24/2024 Telephone [facility] [address] [place] [address] 11440 Elli Warren MD Patient Calling Back; RESULTS, TEST 05/16/2024 7:42 AM FOUNDER PRESIDENT AND CEO Anesthesia Event Operating Room [address] [place] [address] 88684 Kriss Ma MD Cleet, Eva M, MD 05/16/2024 7:15 AM FOUNDER PRESIDENT AND CEO - 05/16/2024 10:55 AM FOUNDER PRESIDENT AND CEO Surgery Operating Room [address] [place] [address] 18178 Elli Warren MD LAPAROSCOPIC HYSTERECTOMY; BILATERAL SALPINGECTOMY;; CYSTOSCOPY 05/16/2024 5:53 AM FOUNDER PRESIDENT AND CEO - 05/16/2024 1:30 PM FOUNDER PRESIDENT AND CEO Hospital Encounter Operating Room [address] [place] [address] 69334 Elli Warren MD Pelvic pain in female Discharge Disposition: Home 05/16/2024 Orders Only HIM DEPARTMENT Provider, MD Martha 05/07/2024 Telephone [facility] [address] [place] [address] 54087 Elli Warren MD Prior Authorization For Procedure 05/07/2024 Telephone [facility] [address] [place] [address] 99393 Elli Warren MD ERRONEOUS ENTRY 05/07/2024 Nurse Triage [facility] [address] [place] [address] 63038 Elli Warren MD Upper Respiratory Infection; Surgery Questions 04/22/2024 4:20 PM FOUNDER PRESIDENT AND CEO Lab Visit [facility] [address] [place] [address] 93168 Medication side effect 04/22/2024 3:20 PM FOUNDER PRESIDENT AND CEO Pre-Op Visit [facility] [address] [place] [address] 32565 Elli Warren MD Preop examination (Primary Dx); Dysmenorrhea 04/20/2024 Telephone [facility] [address] [place] [address] 79497 Unassigned, Provider ABDOMINAL PAIN 04/20/2024 Refill [facility] [address] [place] [address] 81173 Elli Warren MD Refill (ISIBLOOM 0.15-30 MG-MCG tablet [Pharmacy Med Name: ISIBLOOM 0.15-30 MG-MCG TAB 0.15-30 Tablet]) 04/18/2024 2:55 PM FOUNDER PRESIDENT AND CEO E-Visit [facility] [address] [place] [address] 88908 Elli Warren MD Dx: Medication side effect (Primary Dx) 04/01/2024 10:40 AM FOUNDER PRESIDENT AND CEO E-Visit [facility] [address] [place] [address] 65479 Elli Warren MD Dx: Medication side effect (Primary Dx) 03/22/2024 E-Visit [facility] [address] [place] [address] 14360 Mychart, Generic Provider from Last 3 Months [...] Comments Blood Pressure 114/80 06/14/2024 2:10 PM FOUNDER PRESIDENT AND CEO Pulse 102 06/14/2024 2:10 PM FOUNDER PRESIDENT AND CEO Temperature 36.8 C (98.3 F) 05/16/2024 1:06 PM FOUNDER PRESIDENT AND CEO Respiratory Rate 16 05/16/2024 11:10 AM FOUNDER PRESIDENT AND CEO Oxygen Saturation 97% 05/16/2024 1:06 PM FOUNDER PRESIDENT AND CEO Inhaled Oxygen Concentration - - Weight 52.7 kg (116 lb 3.2 oz) 06/14/2024 2:10 P M FOUNDER PRESIDENT AND CEO Height 160 cm (5' 3) 05/16/2024 6:43 AM FOUNDER PRESIDENT AND CEO Body Mass Index 20.58 05/16/2024 6:43 AM FOUNDER PRESIDENT AND CEO Plan of Treatment Health Maintenance Due Date [...] SURGICAL PATHOLOGY Routine 05/16/2024 8: 46 AM FOUNDER PRESIDENT AND CEO Pelvic pain in female LAPAROSCOPIC HYSTERECTOMY (SDEX) Same Day Recovery 05/16/2024 7:30 AM FOUNDER PRESIDENT AND CEO Pelvic pain in female POCT URINE Routine 05/16/2024 7:03 AM FOUNDER PRESIDENT AND CEO GLUCOSE, WHOLE BLOOD POCT Routine 05/16/2024 6:59 AM FOUNDER PRESIDENT AND CEO BT SECOND DRAW Routine 05/16/2024 6:49 AM FOUNDER PRESIDENT AND CEO ANTIBODY SCREEN STAT 05/16/2024 6:41 AM FOUNDER PRESIDENT AND CEO BLOOD TYPE STAT 05/16/2024 6:41 AM FOUNDER PRESIDENT AND CEO HEMOGLOBIN, BLOOD STAT 05/16/2024 6:4 1 AM FOUNDER PRESIDENT AND CEO TYPE AND SCREEN STAT 05/16/2024 6:41 AM FOUNDER PRESIDENT AND CEO EKG 05/16/2024 ECG-ROUTINE 12 LEAD; INTRPT & REPRT Routine 04/22/2024 4:40 PM FOUNDER PRESIDENT AND CEO Medication side effect ECG 12-LEAD ROUTINE(LAB PERFORM) Routine 04/22/2024 4:36 PM FOUNDER PRESIDENT AND CEO Medication side effect PAP TEST Routine 06/07/2022 12:00 AM FOUNDER PRESIDENT AND CEO from Last 3 Months or Most Recently Relevant to Health Maintenance Results * Surgical Path (05/16/2024 8:46 AM FOUNDER PRESIDENT AND CEO) Case Report Surgical Pathology Case: [id number] Authorizing Provider: Elli Warren MD Collected: 05/16/2024 0846 Ordering Location: Operating Room Received: 05/16/2024918 Pathologist: Radha Simms MD Specimens: A) - Fallopian Tube, right, Right Fallopian tube B) - Fallopian Tube, left, Left Fallopian Tube C) - Uterus, uterus and cervix 05/21/2024 3:34 PM [facility] FINAL DIAGNOSIS A. Fallopian tube, right, right salpingectomy: Fallopian tube with no diagnostic abnormality B. Fallopian tube, left, left salpingectomy: Fallopian tube with benign paratubal cyst C. Uterus and cervix, hysterectomy: Uterus with inactive endometrium, benign endometrial polyp, leiomyoma, and changes suggestive of focal serosal endometriosis Cervix with Nabothian cysts 05/21/2024 3:34 PM [facility] Clinical Information Pelvic pain in female 05/21/2024 3:34 PM [facility] Microscopic Description Microscopic examination is performed. 05/21/2024 3:34 PM [facility] Gross Description A: The specimen is received [...] lumen. No masses or lesions are identified. [employer] Home Improvement sections including the longitudinally bisected fimbria and [...] lumen. No masses or lesions are identified. [employer] sections including the longitudinally bisected fimbria and [...] aspects, 0.1-0.3 cm in greatest dimension. MYOMETRIUM: [facility]-brink, finally trabeculated, 2.1 cm thick LEIOMYOMA(TA): There is a 0.3 cm in greatest dimension subserosal nodule TISSUE SUBMISSION: [employer] sections are submitted in 9 cassettes. 1. Anterior cervix (12:00) 2. Posterior cervix (6:00) 3. Anterior endomyometrium interface with polyp 4. Posterior endomyometrium interface with polyp 5. [employer] nodule 6. Additional posterior fundal polyp 7. [employer] serosal surface with smooth patch on posterior aspect 8. 3:00 cervix 9. 9:00 cervix. 05/21/2024 3:34 PM [facility] Embedded Images 05/21/2024 3:34 PM [facility] Tissue ENTIRE RIGHT FALLOPIAN TUBE / Unknown 05/16/2024 8:46 AM FOUNDER PRESIDENT AND CEO 05/16/2024 9:19 AM FOUNDER PRESIDENT AND CEO Tissue specimen (specimen) ENTIRE LEFT FALLOPIAN TUBE / Unknown 05/16/2024 8:46 AM FOUNDER PRESIDENT AND CEO 05/16/2024 9:19 AM FOUNDER PRESIDENT AND CEO Tissue specimen (specimen) UTERINE STRUCTURE / Unknown 05/16/2024 9:13 AM FOUNDER PRESIDENT AND CEO 05/16/2024 9:19 AM FOUNDER PRESIDENT AND CEO Elli Warren MD LAB PATHOLOGY Performing Organization Address City/State/[facility] Co de Phone Number [address] [address], [facility] * POCT urine (05/16/2024 7:03 AM FOUNDER PRESIDENT AND CEO) [facility] Urine Test - POC Negative Negative POCT Control Line Present, Clear Background - Internal control Yes POCT Cartridge Lot# [id number] POCT Urine 05/16/2024 7:03 AM FOUNDER PRESIDENT AND CEO Elli Warren MD ET POINT OF CARE EULA T ENTER/EDIT ORDERABLES Performing Organization Address [facility] Co de Phone Number POCT * Glucose, Whole Blood POCT (05/16/2024 6:59 AM FOUNDER PRESIDENT AND CEO) [facility] Glucose, Whole Blood 74 70 - 180 mg/dL 05/16/2024 7:01 AM FOUNDER PRESIDENT AND CEO [facility] Performing Location [facility] PSCU 05/16/2024 7:01 AM FOUNDER PRESIDENT AND CEO [facility] Blood 05/16/2024 6:59 AM FOUNDER PRESIDENT AND CEO 05/16/2024 7:01 AM FOUNDER PRESIDENT AND CEO Elli Warren MD LAB_1 Performing Organization Address [facility] Co de Phone Number [address] * Blood Type second draw (05/16/2024 6:49 AM FOUNDER PRESIDENT AND CEO) Pathologist [facility] ABO B 05/16/2024 7:25 AM FOUNDER PRESIDENT AND CEO [facility] RH Positive 05/16/2024 7:25 AM FOUNDER PRESIDENT AND CEO [facility] Blood Venipuncture / Unknown 05/16/2024 6:49 AM FOUNDER PRESIDENT AND CEO 05/16/2024 6:56 AM FOUNDER PRESIDENT AND CEO Sandra King MD LAB_1 Performing Organization Address [facility] Co de Phone Number [facility] [address] * Antibody Screen (05/16/2024 6:41 AM FOUNDER PRESIDENT AND CEO) [facility] Antibody Screen Interpretation Negative 05/16/2024 7:32 AM FOUNDER PRESIDENT AND CEO [facility] Blood Venipuncture / Unknown 05/16/2024 6:41 AM FOUNDER PRESIDENT AND CEO 05/16/2024 6:53 AM FOUNDER PRESIDENT AND CEO Elli Warren MD LAB_1 Performing Organization Address [facility]/ZIP Co de Phone Number [facility] [address] [place] [address] * Blood Type (05/16/2024 6:41 AM FOUNDER PRESIDENT AND CEO) ABO B 05/16/2024 7:32 AM FOUNDER PRESIDENT AND CEO [facility] RH Positive 05/16/2024 7:32 AM FOUNDER PRESIDENT AND CEO [facility] Blood Venipuncture / Unknown 05/16/2024 6:41 AM FOUNDER PRESIDENT AND CEO 05/16/2024 6:53 AM FOUNDER PRESIDENT AND CEO Elli Warren MD LAB_1 Performing Organization Address [facility] Co de Phone Number [facility] [address] [place] [address] * Hemoglobin (05/16/2024 6:41 AM FOUNDER PRESIDENT AND CEO) Hemoglobin 15.1 12.0 - 15.5 g/dL 05/16/2024 6:58 AM FOUNDER PRESIDENT AND CEO [facility] Blood Venipuncture / Unknown 05/16/2024 6:41 AM FOUNDER PRESIDENT AND CEO 05/16/2024 6:53 AM FOUNDER PRESIDENT AND CEO Elli Warren MD LAB_1 Performing Organization Address [facility] Phone Number [address] * EKG (05/16/2024) Interface Provider EKG * Ecg 12-Lead Routine - MUSE (04/22/2024 4:40 PM FOUNDER PRESIDENT AND CEO) Ventricular Rate 94 BPM MUSE GHP Atrial Rate 94 BPM MUSE [facility] P-R Interval 96 ms MUSE [facility]HP QRS Duration 80 ms MUSE GHP QT 352 ms MUSE GHP QTC 440 ms MUSE GHP P [place] -4 degrees MUSE GHP R [place] 67 degrees MUSE GHP T [place] 31 degrees MUSE GHP 04/22/2024 4:40 PM FOUNDER PRESIDENT AND CEO Narrative MUSE GHP - 04/23/2024 9:43 AM FOUNDER PRESIDENT AND CEO Sinus rhythm with short AK Otherwise normal ECG No previous ECGs available Confirmed by Jama De La Cruz ([id number]) on 04/23/2024 9:43:20 AM Procedure Note Katina De La Cruz MD - 04/23/2024 Sinus rhythm with short AK Otherwise normal ECG No previous ECGs available Confirmed by Jama De La Cruz ([id number]) on 04/23/2024 9:43:20 AM Elli Warren MD EKG Performing Organization Address City/[facility] Co de Phone Number [facility] [address] [place] [address] * Ecg 12-Lead Routine (Lab perform) (04/22/2024 4:36 PM FOUNDER PRESIDENT AND CEO) EKG Completed 04/22/2024 6:00 PM FOUNDER PRESIDENT AND CEO [facility] Other Specimen Type 04/22/2024 4:36 PM FOUNDER PRESIDENT AND CEO 04/22/2024 4:36 PM FOUNDER PRESIDENT AND CEO Elli Warren MD LAB_1 Performing Organization Address [facility] Co de Phone Number [facility] [address] [place] [address] * PAP Test (06/07/2022 12:00 AM FOUNDER PRESIDENT AND CEO) Other Specimen Type ENTIRE ENDOCERVIX / Unknown Physician Unknown LAB PATHOLOGY Performing Organization Address [facility] Co de Phone Number EXTERNAL RESULTS from Last 3 Months or Most Recently Relevant to Health Maintenance Care Teams Fishing Game Warden Relationship Specialty Start Date End Date Ankita Shannon MD [address] [place] [address] PCP - General Family Practice 05/16/24
--- OUTSIDE RECORDS SUMMARY | 2024-06-20 17:48 | XMS_ITS | Encounter Summary ---
Author Organization [facility] Address [address], [place] [address] Care Team Providers Care Electronic Scale Tester Name Role Phone Ankita Shannon MD Primary Care Provider +1- [phone] Encounter Details Date Type Department Care Team (Late st Contact Info) Description 06/20/2024 Nurse Triage [facility] [address] [place] [phone] Elli Warren MD [address] [place], [place] [id number] Social History Tobacco Use Types Packs/Day Years [...] ED. She plans to be seen at [facility] as that is close to home. [facility] authorization on file for this facility. Routing to clinician to review clinic f/u with pt. ALEXUS, RN AH FITTING ROOM OPERATOR Triage 06/20/24 2:16 PM Reason for Disposition Patient sounds very sick or weak to the triager Protocols used: Post-Op Symptoms and [id number] HT AGENT * Page [place] - 06/20/2024 1:03 PM CST Symptoms - flare man: Are you ? no Describe your symptoms [...] a good number to reach you at? [phone] Preferred communication method: Phone Call. Is it okay to leave a detailed message on your voicemail? Yes HT AGENT documented in this encounter Plan of Treatment Not on file documented as of this encounter Visit Diagnoses Not on filedocumented in this encounter Care Teams Electronic Scale Tester Relationship Specialty Start Date End Date Ankita Shannon MD [address] [place] [address] PCP - General Family Practice 05/16/24 documented as of this encounter
--- OUTSIDE RECORDS SUMMARY | 2024-06-20 17:49 | XMS_ITS | Encounter Summary ---
Author [facility] Address [address] [place] [address] Care Team Providers Care Accounts Payable Associate Name Role Phone Ankita Shannon MD Primary Care Provider +1- [phone] Encounter Details Date Type Department Care Team (Latest Contact Info) Description 05/16/2024 Orders Only HIM DEPARTMENT ProviderMartha [place] [address] Social History Tobacco Use Types Packs/Day Years [...] on filedocumented in this encounter Care Teams Accounts Payable Associate Relationship Specialty Start Date End [place] [address] PCP - General Family Practice 05/16/24 documented as of this encounter
--- OUTSIDE RECORDS SUMMARY | 2024-06-20 17:49 | XMS_ITS | Encounter Summary ---
Author Organization [facility] Address [address] [place] [address] Care Team Providers Care Framing Mill Supervisor Name Role Phone Ankita Shannon MD Primary Care Provider +1- [phone] Reason for Visit * Auth/Cert (Routine) Specialty Diagnoses / Procedures Referred By Adonis alejo Referred To Contact Diagnoses Pelvic pain in female . Procedures LAPAROSCOPIC HYSTERECTOMY; BILATERAL SALPINGECTOMY; POSSIBLE EXCISION OF ENDOMETRIOSIS; CYSTOSCOPY Referral ID Status Reason Start Date Expiration Date Visits Re quested Visits Authorized [id number] 1 1 Encounter Details Date Type Department Care Team (Late st Contact Info) Description 05/16/2024 7:42 AM PROPERTIES SUPERVISOR Anesthesia Event [facility] Operating Room [address] [place] [address]40 Kriss Ma MD [address] [place] [address] 89871 Mirela Weinberg MD [address] [place] [address] 10539 Anesthesia Record Procedure Summary Procedure Name Responsible [...] report Electronically signed by Edison Cruz APRN, RN CLINICAL RESEARCH 0957 An Stop Care transferre kerrie. Meds [...] Date: 05/16/24; Placement Time: 0756; Placed By: RN CLINICAL RESEARCH; Induction Type: Pre-O2, IV; Masking: Easy; ETT [...] No; Performed By: LAURA; Tube Type: (16 hebrew OG tube); Tube Size (Fr.): 16 Fr.; Tube Location: Mouth; Removal Date: 05/16/24; Removal Time: 0940 05/16/24 0800 by Edison Cruz APRN, RN CLINICAL RESEARCH 05/16/24 0940 by Ирина Jensen RN Incision/Surgical [...] Gongora MD - 05/16/2024 10:47 AM CST [facility] Anesthesia Post-op Note Patient: Mirtha Garcia Post-Op [...] by: Kriss Lopez MD 05/16/2024 10:47 AM ERTIES SUPERVISOR * Anesthesia Preprocedure Evaluation - Kriss Gongora MD - 05/16/2024 7:00 AM CST [facility] Anesthesia Pre-op Evaluation Procedure: LAPAROSCOPIC HYSTERECTOMY; BILATERAL [...] QT 352 ms QTC 440 ms P [place] -4 degrees R [place] 67 degrees T [place] 31 degrees Physical Exam: BP 120/77 Pulse [...] needed: 2nd IV The patient and/or their counter sales representative were notified about the potential risks of damage to the lips, teeth, dental devices, mouth and airway. H&P Reviewed and Patient examined, no change observed IV access Antibiotics per surgery Electronically signed by: Kriss Lopez MD 05/16/2024 7:00 AM ERTIES SUPERVISOR documented in this encounter Plan of [...] for adults., Pre-op Started 05/16/2024 8:05 AM PROPERTIES SUPERVISOR 2 g dexAMETHasone (DECADRON) injection Intravenous, Starting on Samia 05/16/24 at 0754, Until Samia 05/16/24 at 0957 Given 05/16/2024 7:54 AM PROPERTIES SUPERVISOR 8 mg fentaNYL (SUBLIMAZE) injection Intravenous, Starting on Samia 05/16/24 at 0753, Until Samia 05/16/24 at 0957 Given 05/16/2024 7:53 AM PROPERTIES SUPERVISOR 2 mL HYDROmorphone (DILAUDID) injection Intravenous, Starting on Samia 05/16/24 at 0826, Until Samia 05/16/24 at 0957 Given 05/16/2024 9:06 AM PROPERTIES SUPERVISOR 0.5 mg Given 05/16/2024 8:26 AM PROPERTIES SUPERVISOR 0.5 mg ketorolac (TORADOL) injection Intravenous, Starting on Samia 05/16/24 at 0940, Until Samia 05/16/24 at 0957 Given 05/16/2024 9:40 AM PROPERTIES SUPERVISOR 15 mg lidocaine PF (XYLOCAINE) 1 % injection Intravenous, Starting on Samia 05/16/24 at 0753 Given 05/16/2024 7:53 AM PROPERTIES SUPERVISOR 40 mg metroNIDAZOLE (FLAGYL) 500 mg in sodium chloride 100 mL IVPB premix 500 mg, Intravenous, Administer over 30 Minutes, ONCE, On Samia 05/16/24 at 0600, For 1 dose, Pre-op Given 05/16/2024 8:00 AM PROPERTIES SUPERVISOR 500 mg midazolam (VERSED) injection Intravenous, Starting on Samia 05/16/24 at 0742, Until Samia 05/16/24 at 0957 Given 05/16/2024 7:42 AM PROPERTIES SUPERVISOR 2 mg ondansetron (ZOFRAN) injection Intravenous, Starting on Samia 05/16/24 at 0936, Until Samia 05/16/24 at 0957 Given 05/16/2024 9:36 AM PROPERTIES SUPERVISOR 4 mg propofol (DIPRIVAN) 10 mg/mL injection Intravenous, Starting on Samia 05/16/24 at 0753, Until Samia 05/16/24 at 0957 Given 05/16/2024 7:53 AM PROPERTIES SUPERVISOR 150 mg propofol (DIPRIVAN) 10 mg/mL injection Intravenous, Starting on Samia 05/16/24 at 0755, Until Samia 05/16/24 at 0957 Rate/Dose Change 05/16/2024 9:27 AM PROPERTIES SUPERVISOR 140 mcg/kg/min 42.672 mL/hr Rate/Dose Change 05/16/2024 8:10 AM PROPERTIES SUPERVISOR 160 mcg/kg/min 48. 768 mL/hr Started 05/16/2024 7:55 AM PROPERTIES SUPERVISOR 180 mcg/kg/min 54.864 mL /hr rocuronium (ZEMURON) injection Intravenous, Starting on Samia 05/16/24 at 0754, Until Samia 05/16/24 at 0957 Given 05/16/2024 9:01 AM PROPERTIES SUPERVISOR 25 mg Given 05/16/2024 8:16 AM PROPERTIES SUPERVISOR 25 mg Given 05/16/2024 7:54 AM PROPERTIES SUPERVISOR 50 mg scopolamine (TRANSDERM-SCOP) 1 mg/72 hours Left Ear, Starting on Samia 05/16/24 at 0740, Until Samia 05/16/24 at 0957 Given 05/16/2024 7:40 AM PROPERTIES SUPERVISOR 1 Patch sodium chloride 0.9% infusion Intravenous, Starting on Samia 05/16/24 at 0745 Started 05/16/2024 7:45 AM PROPERTIES SUPERVISOR sugammadex (BRIDION) injection Intravenous, Starting on Samia 05/16/24 at 0944, Until Samia 05/16/24 at 0957 Given 05/16/2024 9:44 AM PROPERTIES SUPERVISOR 100 mg documented in this encounter Care Teams Framing Mill Supervisor Relationship Specialty Start Date End Date Ank[place] [address] PCP - General Family Practice 05/16/24 documented as of this encounter
--- OUTSIDE RECORDS SUMMARY | 2024-06-20 17:49 | XMS_ITS | Encounter Summary ---
Author Organization [facility] Address [address] [facility] [place] [address] Care Team Providers Care Debt Recovery Officer Name Role Phone Ankita Shannon MD Primary Care Provider +1- [phone] Reason for Referral * Therapies (Routine) - New Request Specialty Diagnoses / Procedures Referred By Adonis alejo Referred To Contact Diagnoses Pelvic floor dysfunction in female Elli Warren MD [address] [place] [address] Referral ID Status Reason Start Date Expiration Date V isits Requested Visits Authorized [id number] New Request 06/19/2024 06/18/2025 1 1 Scheduling Instructions Your clinician has recommended an appointment with [facility] Therapy [facility] Rehabilitation Services. You can quickly schedule your appointment by signing in to your online account at [email or web address] or through the text message you may have received. You can also make an appointment by calling [phone]. We suggest you call your health insurance company about your coverage and benefits for this appointment. Question Answer Appointment Urgency? Non-Urgent Requested Services Evaluate and treat Reason for Visit Pelvic Health May use saline for irrigation or cleansing Yes dexamethasone use Yes May check glucose per protocol (see policy link below) or if patient has symptoms? Yes Comments S/p TLH DOS 05/16/24 WASHER Reason for Visit * Reason Comments Follow-up, NOS Entered automaticall y [facility] Encounter Details Date Type Department Care Team (Late st Contact Info) Description 06/18/2024 10:00 AM PAN WASHER E-Visit [facility] [address] [place] [address] Elli Warren MD [address] [place] [address] Dx: Pelvic floor dysfunction in female (Primary [...] 06/19/2024 9:53 AM CST Referral faxed to [facility] [phone], confirmation received. SEGUNDO VAUGHAN INSTRUCTOR MODELING Triage 06/19/24 9:54 AM WASHER * Anna Hubbard RN - 06/18/2024 11:44 AM CST Pelvic PT order pended, sent to provider for review and signing. SEGUNDO VAUGHAN INSTRUCTOR MODELING Triage 06/18/24 11:44 AM WASHER documented in this encounter Miscellaneous Notes * E-Visit Routing Comment - Elli Warren MD - 06/19/2024 9:09 AM PAN WASHER Referral signed, thanks for pending! LM WASHER documented in this encounter Plan of Treatment Scheduled Referrals Name Type Priority Associated Diagnoses Orde r Schedule Physical Therapy Referral Routine Pelvic floor dysfunction in female Ordered: 06/19/2024 documented as of this encounter Visit Diagnoses Diagnosis Pelvic floor dysfunction in female- Primary documented in this encounter Care Teams Debt Recovery Officer Relationship Specialty Start Date End Date Ankita Shannon MD [address] [place] [address] PCP - General Family Practice 05/16/24 documented as of this encounter
--- OUTSIDE RECORDS SUMMARY | 2024-06-20 17:49 | XMS_ITS | Encounter Summary ---
Author Organization [facility] Address [address] [address] Care Team Providers Care Service Person Name Role Phone Ankita Shannon MD Primary Care Provider +1- [phone] Reason for Visit * Reason Comments Surgery Scheduling Encounter Details Date Type Department Care Team (Late st Contact Info) Description 02/22/2024 Telephone [facility] [facility] [place] [address] Elli Warren MD [address] [place], [place] [id number] Surgery Scheduling Social History Tobacco Use Types [...] 02/29/2024 7:51 AM CDT Surgery scheduled at [facility] on 05/16/24 for LAPAROSCOPIC HYSTERECTOMY; BILATERAL SALPINGECTOMY; POSSIBLE EXCISION OF ENDOMETRIOSIS; CYSTOSCOPY. Pre-op and post-op scheduled. Brochure sent via Mail. Izabela Masetrson 02/29/2024, 7:51 AM, * Izabela Masterson - [...] on filedocumented in this encounter Care Teams Service Person Relationship Specialty Start Date End Date Ankita Shannon MD [address] [place] [address] PCP - General Family Practice 05/16/24 documented as of this encounter
--- OUTSIDE RECORDS SUMMARY | 2024-06-20 17:49 | XMS_ITS | Encounter Summary ---
Author Organization [facility] Address [address] [place] [address] Care Team Providers Care Aerospace Engineer Officer Armament Name Role Phone Unavailable Primary Care Provider Unavailabl e Reason for Visit * Reason Comments Prior Authorization For Procedure Encounter Details Date Type Department Care Team (Late st Contact Info) Description 05/07/2024 Telephone [facility] [address] [place] [address] Elli Warren MD [address] [place], [place] [id number] Prior Authorization For Procedure Social History Tobacco [...] pt. CPT codes given for scheduled procedure: 78179 for the excision of endometriosis and either 06023(uterus 250g or less) or 53625 (uterus greater than 250g) for TLH w/ BS. All questions answered. Mirtha has no further questions or concerns at this time. ALEXUS, RN AH SURVEY RESEARCHER Triage 05/08/24 2:03 PM DELIVERER * Anna Hubbard RN - 05/07/2024 2:52 PM CST Pt is scheduled for LAPAROSCOPIC HYSTERECTOMY; BILATERAL SALPINGECTOMY; POSSIBLE EXCISION OF ENDOMETRIOSIS; CYSTOSCOPY. Requests CPT codes to send to insurance. Routing encounter to Coding. SEGUNDO VAUGHAN AHOB/RESEARCH MANAGER Triage 05/07/24 2:53 PM DELIVERER * Vaishnavi Finley - 05/07/2024 2:19 PM CST Prior Authorizations What prior authorization is needed? Patient is looking for the procedure code(s) for her procedure on 05/16/24. Insurance Carrier: [facility] , [facility] [id number] Pharmacy Insurance Carrier (if different from above): - For a medication PA, patient would like it filled at the pharmacy listed in Meds & Orders. Additional comments (related to the above concern): Preferred communication method: Phone Call. Is it okay to leave a detailed message on your voicemail? Yes or MyChart Is there anything else I can help you with today? DELIVERER documented in this encounter Plan of Treatment Not on file documented as of this encounter Visit Diagnoses Not on filedocumented in this encounter
--- OUTSIDE RECORDS SUMMARY | 2024-06-20 17:49 | XMS_ITS | Encounter Summary ---
Author Organization [facility] Address [address] [place] [address] Care Team Providers Care Pressure Control Supervisor Name Role Phone Ankita Shannon MD Primary Care Provider +1- [phone] Reason for Visit * Auth/Cert (Routine) Specialty Diagnoses / Procedures Referred By Adonis alejo Referred To Contact Diagnoses Pelvic pain in female . Procedures LAPAROSCOPIC HYSTERECTOMY; BILATERAL SALPINGECTOMY; POSSIBLE EXCISION OF ENDOMETRIOSIS; CYSTOSCOPY Referral ID Status Reason Start Date Expiration Date Visits Re quested Visits Authorized [id number] 1 1 Encounter Details Date Type Department Care Team (Late st Contact Info) Description 05/16/2024 7:15 AM GLAZIER ARTIST - 05/16/2024 10:55 AM GLAZIER ARTIST Surgery Operating Room [address] [place] [address] Elli Warren MD [address] [place] [address] LAPAROSCOPIC HYSTERECTOMY; BILATERAL SALPINGECTOMY;; CYSTOSCOPY Social History [...] Comments Blood Pressure 121/75 05/16/2024 10:50 AM GLAZIER ARTIST Pulse 97 05/16/2024 10:50 AM GLAZIER ARTIST Temperature 36.1 C (97 F) 05/16/2024 9:54 AM GLAZIER ARTIST Respiratory Rate 13 05/16/2024 10:50 AM GLAZIER ARTIST Oxygen Saturation 100% 05/16/2024 10:50 AM GLAZIER ARTIST Inhaled Oxygen Concentration - - Weight 50.8 kg (112 lb) 05/16/2024 6:43 AM GLAZIER ARTIST Height 160 cm (5' 3) 05/16/2024 6:43 AM GLAZIER ARTIST Body Mass Index 19.84 05/16/2024 6:43 AM GLAZIER ARTIST documented in this encounter Discharge Instructions * Discharge Instr - Other Orders* Pascale Galeas RN - 05/16/2024 10:13 AM GLAZIER ARTIST CONTACT INFORMATION If it is after hours call the Careline at [phone]. [facility] Surgery: Please contact your clinic during regular business hours or in case of anEmergency dial 911. Clever: [phone] ANESTHESIA Today you received General/Minor Sedation: Rest [...] to new medications Severe pain Swelling IER ARTIST * Discharge Instr - Non RX Meds* Pascale Galeas RN - 05/16/2024 11:56 AM GLAZIER ARTIST You were given 15mg IV Toradol during your procedure at 9:30am. Toradol is in the same family as Ibuprofen therefore, Do Not start Ibuprofen until after 3:30pm. IER ARTIST documented in this encounter Medications at Time [...] Warren MD - 05/16/2024 1:50 PM CST SUPERVISOR TITLE Postop Note Mirtha is feeling better than [...] in 4 weeks. Elli Warren MD IER ARTIST documented in this encounter Procedure Notes * Elli Warren MD - 05/16/2024 11:14 AM CST [facility] Operative Note Surgery Date: 05/16/2024 Surgeons and [...] and the cystoscopy. Elli Warren MD IER ARTIST * Wil Moya DO - 05/16/2024 9:37 AM CST [facility] Brief Operative Progress Note Surgery Date: 05/16/2024 [...] Uos jets. Wil Moya D.O. M.A. N MANAGER STARS PGY-3 05/16/24 9:38 AM IER ARTIST documented in this encounter Plan of Treatment Not on file documented as of this encounter Procedures Procedure Name Priority Date/Time Associated Diagnosis Comments SURGICAL PATHOLOGY Routine 05/16/2024 8: 46 AM GLAZIER ARTIST Pelvic pain in female LAPAROSCOPIC HYSTERECTOMY (SDEX) Same Day Recovery 05/16/2024 7:30 AM GLAZIER ARTIST Pelvic pain in female POCT URINE Routine 05/16/2024 7:03 AM GLAZIER ARTIST GLUCOSE, WHOLE BLOOD POCT Routine 05/16/2024 6:59 AM GLAZIER ARTIST BT SECOND DRAW Routine 05/16/2024 6:49 AM GLAZIER ARTIST TYPE AND SCREEN STAT 05/16/2024 6:41 AM GLAZIER ARTIST ANTIBODY SCREEN STAT 05/16/2024 6:41 AM GLAZIER ARTIST BLOOD TYPE STAT 05/16/2024 6:41 AM GLAZIER ARTIST HEMOGLOBIN, BLOOD STAT 05/16/2024 6:4 1 AM GLAZIER ARTIST documented in this encounter Results * Surgical Path (05/16/2024 8:46 AM GLAZIER ARTIST) Case Report Surgical Pathology Case: [id number] Authorizing Provider: Elli Warren MD Collected: 05/16/2024 0846 Ordering Location: Operating Room Received: 05/16/2024 0919 Pathologist: Radha Simms MD Specimens: A) - Fallopian Tube, right, Right Fallopian tube B) - Fallopian Tube, left, Left Fallopian Tube C) - Uterus, uterus and cervix 05/21/2024 3:[address] [facility] FINAL DIAGNOSIS A. Fallopian tube, right, right salpingectomy: Fallopian tube with no diagnostic abnormality B. Fallopian tube, left, left salpingectomy: Fallopian tube with benign paratubal cyst C. Uterus and cervix, hysterectomy: Uterus with inactive endometrium, benign endometrial polyp, leiomyoma, and changes suggestive of focal serosal endometriosis Cervix with Nabothian cysts 05/21/2024 3:[address] [facility] Clinical Information Pelvic pain in female 05/21/2024 3:[address] [facility] Microscopic Description Microscopic examination is performed. 05/21/2024 3:[address] [facility] Gross Description A: The specimen [...] lumen. No masses or lesions are identified. Shop Hand sections including the longitudinally bisected fimbria and [...] lumen. No masses or lesions are identified. Shop Hand sections including the longitudinally bisected fimbria and [...] aspects, 0.1-0.3 cm in greatest dimension. MYOMETRIUM: Broadwell-brink, finally trabeculated, 2.1 cm thick LEIOMYOMA(TA): There is a 0.3 cm in greatest dimension subserosal nodule TISSUE SUBMISSION: Shop Hand sections are submitted in 9 cassettes. 1. Anterior cervix (12:00) 2. Posterior cervix (6:00) 3. Anterior endomyometrium interface with polyp 4. Posterior endomyometrium interface with polyp 5. Shop Hand nodule 6. Additional posterior fundal polyp 7. Shop Hand serosal surface with smooth patch on posterior aspect 8. 3:00 cervix 9. 9:00 cervix. 05/21/2024 3:34 PM GLAZIER ARTIST [facility] Embedded Images 05/21/2024 3:[address] [facility] Tissue ENTIRE RIGHT FALLOPIAN TUBE / Unknown 05/16/2024 8:46 AM GLAZIER ARTIST 05/16/2024 9:19 AM GLAZIER ARTIST Tissue specimen (specimen) ENTIRE LEFT FALLOPIAN TUBE / Unknown 05/16/2024 8:46 AM GLAZIER ARTIST 05/16/2024 9:19 AM GLAZIER ARTIST Tissue specimen (specimen) UTERINE STRUCTURE / Unknown 05/16/2024 9:13 AM GLAZIER ARTIST 05/16/2024 9:19 AM GLAZIER ARTIST Elli Warren MD LAB PATHOLOGY Performing Organization Address [facility] Co de Phone Number [address] * POCT urine (05/16/2024 7:03 AM GLAZIER ARTIST) Urine Test - POC Negative Negative POCT Control Line Present, Clear Background - Internal control Yes POCT Cartridge Lot# [id number] POCT Urine 05/16/2024 7:03 AM GLAZIER ARTIST Elli Warren MD ET POINT OF CARE EULA T ENTER/EDIT ORDERABLES Performing Organization Address [facility] de Phone Number POCT * Glucose, Whole Blood POCT (05/16/2024 6:59 AM GLAZIER ARTIST) Glucose, Whole Blood 74 70 - 180 mg/dL 05/16/2024 7:[address] [facility] Performing Location [facility] PSCU 05/16/2024 7:[address] [facility] Blood 05/16/2024 6:59 AM GLAZIER ARTIST 05/16/2024 7:01 AM GLAZIER ARTIST Elli Warren MD LAB_1 Performing Organization Address [facility] Co de Phone Number [address] * Blood Type second draw (05/16/2024 6:49 AM GLAZIER ARTIST) ABO B 05/16/2024 7:25 AM GLAZIER ARTIST [facility] Positive 05/16/2024 7:25 AM GLAZIER ARTIST [facility] Blood Venipuncture / Unknown 05/16/2024 6:49 AM GLAZIER ARTIST 05/16/2024 6:56 AM GLAZIER ARTIST Sandra King MD LAB_1 Performing Organization Address [facility] Phone Number [facility] [address] * Antibody Screen (05/16/2024 6:41 AM GLAZIER ARTIST) Antibody Screen Interpretation Negative 05/16/2024 7:32 AM GLAZIER ARTIST [facility] Blood Venipuncture / Unknown 05/16/2024 6:41 AM GLAZIER ARTIST 05/16/2024 6:53 AM GLAZIER ARTIST Elli Warren MD LAB_1 Performing Organization Address [facility] Phone [facility] [address] [place] [address] * Blood Type (05/16/2024 6:41 AM GLAZIER ARTIST) ABO B 05/16/2024 7:32 AM GLAZIER ARTIST [facility] Positive 05/16/2024 7:32 AM GLAZIER ARTIST [facility] Blood Venipuncture / Unknown 05/16/2024 6:41 AM GLAZIER ARTIST 05/16/2024 6:53 AM GLAZIER ARTIST Elli Warren MD LAB_1 Performing Organization Address [facility] Co de Phone Number [facility] [address] * Hemoglobin (05/16/2024 6:41 AM GLAZIER ARTIST) Hemoglobin 15.1 12.0 - 15.5 g/dL 05/16/2024 6:58 AM GLAZIER ARTIST [facility] Blood Venipuncture / Unknown 05/16/2024 6:41 AM GLAZIER ARTIST 05/16/2024 6:53 AM GLAZIER ARTIST Elli Warren MD LAB_[address] [address], [facility] documented in this encounter Visit Diagnoses Diagnosis [...] Pascale Galeas RN 05/16/2024, 2:22 PM IER ARTIST * Plan of Care - Neelima Nieves RN - 05/16/2024 10:49 AM CST I completed a full assessment and assessments as ordered and per policy on this patient during my work shift. Reassessments completed during my work shift are unchanged unless documented. IER ARTIST documented in this encounter Admitting Diagnoses Diagnosis [...] at 2321, Intra-op Given 05/16/2024 9:40 AM GLAZIER ARTIST 19 mL Wound Site calcium carbonate (TUMS) chewable tablet 1,000 mg 1,000 mg, Oral, ONCE, On Samia 05/16/24 at 1300, For 1 dose, Each tablet provides 200 mg elemental calcium Given 05/16/2024 1:05 PM GLAZIER ARTIST 1,000 mg dexAMETHasone (DECADRON) injection 4-8 mg [...] (SUBLIMAZE) injection 25-50 mcg 25-50 mcg, Intravenous, [id number], Pain, Starting on Samia 05/16/24 at 0941, [...] , PACU (only) Given 05/16/2024 10:40 AM GLAZIER ARTIST 25 mcg Given 05/16/2024 10:20 AM GLAZIER ARTIST 25 mcg hydrALAZINE (APRESOLINE) injection 5 mg [...] mg, PACU (only) Given 05/16/2024 10:20 AM GLAZIER ARTIST 0.2 mg hydrOXYzine pamoate (VISTARIL) capsule 25 [...] (NORMODYNE) injection 5 mg 5 mg, Intravenous, [id number], Blood Pressure >, Hypertension SBP greater than [...] at 0839, Intra-op Given 05/16/2024 8:39 AM GLAZIER ARTIST 15 g Wound Site metoprolol tartrate (LOPRESSOR) injection 1-2 mg 1-2 mg, Intravenous, [id number], Other, htn, Starting on Samia 05/16/24 at [...] PACU & Post-op Given 05/16/2024 10:30 AM GLAZIER ARTIST 1 Tablet documented in this encounter Active and Recently Administered Medications Times are shown in GLAZIER ARTIST. Scheduled Medication Order 05/14/2024 05/15/2024 05/16/2024 calcium [...] (SUBLIMAZE) injection 25-50 mcg 25-50 mcg, Intravenous, [id number], Pain, Starting on Samia 05/16/24 at 0941, [...] (NORMODYNE) injection 5 mg 5 mg, Intravenous, [id number], Blood Pressure >, Hypertension SBP greater than [...] (LOPRESSOR) injection 1-2 mg 1-2 mg, Intravenous, [id number], Other, htn, Starting on Samia 05/16/24 at [...] & Post-op 1030 (Given - Provid er: Ириан Jensen RN) Linked Groups Order Group 1: [...] tablets. documented in this encounter Care Teams Pressure Control Supervisor Relationship Specialty Start Date End Date Ankita Shannon MD [address] [place] [address] PCP - General Family Practice 05/16/24 documented as of this encounter
--- OUTSIDE RECORDS SUMMARY | 2024-06-20 17:49 | XMS_ITS | Encounter Summary ---
Author Organization [facility] Address [address], [place] [address] Care Team Providers Care Substation Design Draftsperson Name Role Phone Ankita Shannon MD Primary Care Provider +1- [phone] Reason for Visit * Reason Comments Concerns Encounter Details Date Type Department Care Team (Late st Contact Info) Description 05/27/2024 E-Visit [place] [facility] [address] [place] [address] Elli Warren MD [address] [place] [address] Dx: Yeast vaginitis (Primary Dx) Social History [...] swimming. Mirtha is 11 days post-op from [facility] with BS. Oral Diflucan ordered as she should refrain from inserting anything into her vagina for another 4 weeks. Teaching done via [employer] messaging. SEGUNDO VAUGHAN CERAMICS TEACHER Triage 05/27/24 12:26 PM AL CARE GIVER * Anna Hubbard RN - 05/27/2024 11:24 AM CST Returned call to pt Mirtha. LMTCB and/or check [employer] for message. SEGUNDO VAUGHAN CERAMICS TEACHER Triage 05/27/24 11:26 AM AL CARE GIVER * Norma Charles I - 05/27/2024 11:12 AM CST Symptoms - personal banker Are you ? No, No LMP recorded. [...] a detailed message on your voicemail? Yes AL CARE GIVER documented in this encounter Plan of Treatment Not on file documented as of this encounter Visit Diagnoses Diagnosis Yeast vaginitis- Primary Candidiasis of vulva and vagina documented in this encounter Care Teams Substation Design Draftsperson Relationship Specialty Start Date End Date Ankita Shannon MD [address] [place] [address] PCP - General Family Practice 05/16/24 documented as of this encounter
--- OUTSIDE RECORDS SUMMARY | 2024-06-20 17:49 | XMS_ITS | Encounter Summary ---
Author Organization [facility] Address [address] [place] [address] Care Team Providers Care Head Charger Name Role Phone Unavailable Primary Care Provider Unavailabl e Reason for Visit * Reason Comments ERRONEOUS ENTRY Encounter Details Date Type Department Care Team (Late st Contact Info) Description 05/07/2024 Telephone [place] [facility] [place] [address] Elli Warren MD [address] [place] [address] ERRONEOUS ENTRY Social History Tobacco Use Types [...] the for a detailed estimate of your aie-xd-wpleso costs for upcoming care services. For more information about billing and financial assistance, go to: [email or web address]-[email or web address] ICATING MACHINE SERVICER documented in this encounter Plan of Treatment Not on file documented as of this encounter Visit Diagnoses Not on filedocumented in this encounter
--- OUTSIDE RECORDS SUMMARY | 2024-06-20 17:49 | XMS_ITS | Encounter Summary ---
Author Organization [facility] Address [address], [place] [address] Care Team Providers Care Capsule Filler Name Role Phone Ankita Shannon MD Primary Care Provider +1- [phone] Reason for Visit * Reason Comments Patient Calling Back RESULTS, TEST Encounter Details Date Type Department Care Team (Late st Contact Info) Description 05/24/2024 Telephone [place] [facility] [address] [place] [address] Elli Warren MD [address] [place], [place] [id number] Patient Calling Back; RESULTS, TEST Social History [...] scheduled at 4 weeks. Elli Warren MD ITY CONTROL ASSOCIATE * Angela Keen, RN - 05/24/2024 3:32 PM CST Returned pt call, pt did see result on mychart and is requesting that return her call asshe has a couple questions regarding the pathology. Sending to provider to review and advise pt request. SM, RN, SP EXTERMINATION SUPERVISOR, 05/24/2024, 3:33 PM ITY CONTROL ASSOCIATE * April Rock - 05/24/2024 3:25 PM [...] help you with today? Andreia NG Clinical Mail Room Clerk 05/24/2024 3:28 PM ITY CONTROL ASSOCIATE documented in this encounter Plan of Treatment Not on file documented as of this encounter Visit Diagnoses Not on filedocumented in this encounter Care Teams Capsule Filler Relationship Specialty Start Date End Date Ankita Shannon MD [facility] [place] [address] PCP - General Family Practice 05/16/24 documented as of this encounter
--- OUTSIDE RECORDS SUMMARY | 2024-06-20 17:49 | XMS_ITS | Encounter Summary ---
Author Organization [facility] of [facility] Address [address] [place] [address] Care Team Providers Care Senior Database Administrator Name Role Phone Ankita Shannon MD Primary Care Provider +1- [phone] Reason for Visit * Reason Comments Post Op Exam DOS: 05/16/24 - LAPA ROSCOPIC HYSTERECTOMY; BILATERAL SALPINGECTOMY; CYSTOSCOPY (Bilateral) - Things are going pretty well, no real concerns Encounter Details Date Type Department Care Team (Latest Contact Info) Description 06/14/2024 2:00 PM BEHAVIORAL HEALTH DIRECTOR Office Visit [place] [facility] [address] [place] [address] Elli Warren MD [address] [place] [address] Postoperative follow-up (Primary Dx); S/P hysterectomy Social [...] Comments Blood Pressure 114/80 06/14/2024 2:10 PM BEHAVIORAL HEALTH DIRECTOR Pulse 102 06/14/2024 2:10 PM BEHAVIORAL HEALTH DIRECTOR Temperature - - Respiratory Rate - - Oxygen Saturation - - Inhaled Oxygen Concentration - - Weight 52.7 kg (116 lb 3.2 oz) 06/14/2024 2:10 P M BEHAVIORAL HEALTH DIRECTOR Height - - Body Mass Index 20.58 05/16/2024 6:43 AM BEHAVIORAL HEALTH DIRECTOR documented in this encounter Patient Instructions * Patient Instructions* Elli Warren MD - 06/14/2024 2:00 PM BEHAVIORAL HEALTH DIRECTOR Keep slowly increasing activity, but wait on lifting more than 15 lbs for another two weeks. No strenuous exercise involving jumping for another two weeks. No vaginal intercourse/toys for another two weeks as well. Please message if any further spotting or bleeding, or any other postop concerns! VIORAL HEALTH DIRECTOR documented in this encounter Progress Notes * [...] no dysplasia on pathology. Elli Warren MD VIORAL HEALTH DIRECTOR documented in this encounter Plan of Treatment Not on file documented as of this encounter Visit Diagnoses Diagnosis Postoperative follow-up- Primary Follow-up examination, following unspecified surgery S/P hysterectomy Acquired absence of both cervix and uterus documented in this encounter Care Teams Senior Database Administrator Relationship Specialty Start Date End Date Ankita Shannon MD [address] [place] [address] PCP - General Family Practice 05/16/24 documented as of this encounter
--- OUTSIDE RECORDS SUMMARY | 2024-06-20 17:49 | XMS_ITS | Encounter Summary ---
Author Organization [facility] Address [address] [address] Care Team Providers Care Quill Layer Name Role Phone Ankita Shannon MD Primary Care Provider +1- [phone] Reason for Visit * Reason Comments QUESTIONS, GENERAL Entered automaticall y based on patient selection in Black coin. Encounter Details Date Type Department Care Team (Late st Contact Info) Description 06/04/2024 2:50 PM SOLAR THERMAL TECHNICIAN E-[facility] [address] [place] [address] Elli Warren MD [address] [place] [address] Chief Comp: QUESTIONS, GENERAL Social History Tobacco [...] 06/04/2024 3:57 PM CST Called Mirtha as Black coin message unread. She is POD#19 from [facility], [...] await response from provider. SEGUNDO VAUGHAN AH CUSTOMS CONSULTANT Triage 06/04/24 4:12 PM R THERMAL TECHNICIAN documented in this encounter Plan of Treatment Not on file documented as of this encounter Visit Diagnoses Not on filedocumented in this encounter Care Teams Quill Layer Relationship Specialty Start Date End Date Ankita Shannon MD [address] [place] [address] PCP - General Family Practice 05/16/24 documented as of this encounter
--- OUTSIDE RECORDS SUMMARY | 2024-06-20 17:49 | XMS_ITS | Encounter Summary ---
Author Organization [facility] Address [address] [place] [address] Care Team Providers Care Door Fitter Name Role Phone Unavailable Primary Care Provider Unavailabl e Reason for Visit * Reason Comments Upper Respiratory Infection Surgery Questions Encounter Details Date Type Department Care Team (Late st Contact Info) Description 05/07/2024 Nurse Triage [facility] [address] [place] [address] Elli Warren MD [address] [place], [place] [id number] Upper Respiratory Infection; Surgery Questions Social History [...] is in agreement with plan. ALEXUS RN PRINTER SLOTTER HELPER Triage 05/07/24 8:32 AM Reason for Disposition Cough with cold symptoms (e.g., runny nose, postnasal drip, throat clearing) Protocols used: [id number] ERECTOR APPRENTICE * Gretel Parker - 05/07/2024 8:08 AM CST Symptoms - equities analyst: Are you ? No, No LMP recorded. [...] ulcer that could be affected by this. ERECTOR APPRENTICE documented in this encounter Plan of Treatment Not on file documented as of this encounter Visit Diagnoses Not on filedocumented in this encounter
--- OUTSIDE RECORDS SUMMARY | 2024-06-20 17:49 | XMS_ITS | Encounter Summary ---
Author Organization [facility] Address [address] [address] Care Team Providers Care Steno Typist Name Role Phone Ankita Shannon MD Primary Care Provider [phone]- [phone] Reason for Visit * Auth/Cert (Routine) Specialty Diagnoses / Procedures Referred By Adonis alejo Referred To Contact Diagnoses Pelvic pain in female . Procedures LAPAROSCOPIC HYSTERECTOMY; BILATERAL SALPINGECTOMY; POSSIBLE EXCISION OF ENDOMETRIOSIS; CYSTOSCOPY Referral ID Status Reason Start Date Expiration Date Visits Re quested Visits Authorized [id number] 1 1 Encounter Details Date Type Department Care Team (Latest Contact Info) Description 05/16/2024 5:53 AM GREENS OR GROUNDS SUPERINTENDENT - 05/16/2024 1:30 PM GREENS OR GROUNDS SUPERINTENDENT Hospital Encounter [facility] Operating Room [address] [place] [address] Elli Warren MD [address] [place] [address] Pelvic pain in female Discharge Disposition: Home [...] Comments Blood Pressure 119/82 05/16/2024 1:06 PM GREENS OR GROUNDS SUPERINTENDENT Pulse 112 05/16/2024 1:06 PM GREENS OR GROUNDS SUPERINTENDENT Temperature 36.8 C (98.3 F) 05/16/2024 1:06 PM GREENS OR GROUNDS SUPERINTENDENT Respiratory Rate 16 05/16/2024 11:10 AM GREENS OR GROUNDS SUPERINTENDENT Oxygen Saturation 97% 05/16/2024 1:06 PM GREENS OR GROUNDS SUPERINTENDENT Inhaled Oxygen Concentration - - Weight 50.8 kg (112 lb) 05/16/2024 6:43 AM GREENS OR GROUNDS SUPERINTENDENT Height 160 cm (5' 3) 05/16/2024 6:43 AM GREENS OR GROUNDS SUPERINTENDENT Body Mass Index 19.84 05/16/2024 6:43 AM GREENS OR GROUNDS SUPERINTENDENT documented in this encounter Discharge Instructions * Discharge Instr - Other Orders* Pascale Galeas RN - 05/16/2024 10:13 AM GREENS OR GROUNDS SUPERINTENDENT CONTACT INFORMATION If it is after hours call the Careline at [phone]. [facility] Surgery: Please contact your clinic during regular business hours or in case of anEmergency dial 911. [place]: [phone] ANESTHESIA Today you received General/Minor Sedation: Rest [...] Reaction to new medications Severe pain Swelling NS OR GROUNDS SUPERINTENDENT * Discharge Instr - Non RX Meds* Pascale Galeas RN - 05/16/2024 11:56 AM GREENS OR GROUNDS SUPERINTENDENT You were given 15mg IV Toradol during your procedure at 9:30am. Toradol is in the same family as Ibuprofen therefore, Do Not start Ibuprofen until after 3:30pm. NS OR GROUNDS SUPERINTENDENT documented in this encounter Medications at Time [...] Warren MD - 05/16/2024 1:50 PM CST DIRECTOR OF PRODUCT DESIGN Postop Note Mirtha is feeling better than [...] f/u in 4 weeks. Elli Warren MD NS OR GROUNDS SUPERINTENDENT documented in this encounter Procedure Notes * Elli Warren MD - 05/16/2024 11:14 AM CST [facility] Operative Note Surgery Date: 05/16/2024 Surgeons and [...] procedure, and the cystoscopy. Elli Warren MD NS OR GROUNDS SUPERINTENDENT * Wil Moya DO - 05/16/2024 9:37 AM CST [facility] Brief Operative Progress Note Surgery Date: 05/16/2024 Surgeons and Role: * Elli Warern MD - Primary * Leticia Zepeda MD [...] [employer]. Wil Moya D.O. M.A. N DIRECTOR OF HOTEL PGY-3 05/16/24 9:38 AM NS OR GROUNDS SUPERINTENDENT documented in this encounter Plan of Treatment Not on file documented as of this encounter Procedures Procedure Name Priority Date/Time Associated Diagnosis Comments SURGICAL PATHOLOGY Routine 05/16/2024 8: 46 AM GREENS OR GROUNDS SUPERINTENDENT Pelvic pain in female LAPAROSCOPIC HYSTERECTOMY (SDEX) Same Day Recovery 05/16/2024 7:30 AM GREENS OR GROUNDS SUPERINTENDENT Pelvic pain in female POCT URINE Routine 05/16/2024 7:03 AM GREENS OR GROUNDS SUPERINTENDENT GLUCOSE, WHOLE BLOOD POCT Routine 05/16/2024 6:59 AM GREENS OR GROUNDS SUPERINTENDENT BT SECOND DRAW Routine 05/16/2024 6:49 AM GREENS OR GROUNDS SUPERINTENDENT TYPE AND SCREEN STAT 05/16/2024 6:41 AM GREENS OR GROUNDS SUPERINTENDENT ANTIBODY SCREEN STAT 05/16/2024 6:41 AM GREENS OR GROUNDS SUPERINTENDENT BLOOD TYPE STAT 05/16/2024 6:41 AM GREENS OR GROUNDS SUPERINTENDENT HEMOGLOBIN, BLOOD STAT 05/16/2024 6:4 1 AM GREENS OR GROUNDS SUPERINTENDENT documented in this encounter Results * Surgical Path (05/16/2024 8:46 AM GREENS OR GROUNDS SUPERINTENDENT) Case Report Surgical Pathology Case: [id number] Authorizing Provider: Elli Warren MD Collected: 05/16/2024 0846 Ordering Location: Operating Room Received: 05/16/2024 0919 Pathologist: Radha Simms MD Specimens: A) - Fallopian Tube, right, Right Fallopian tube B) - Fallopian Tube, left, Left Fallopian Tube C) - Uterus, uterus and cervix 05/21/2024 3:34 PM [facility] FINAL DIAGNOSIS A. Fallopian tube, right, right salpingectomy: Fallopian tube with no diagnostic abnormality B. Fallopian tube, left, left salpingectomy: Fallopian tube with benign paratubal cyst C. Uterus and cervix, hysterectomy: Uterus with inactive endometrium, benign endometrial polyp, leiomyoma, and changes suggestive of focal serosal endometriosis Cervix with Nabothian cysts 05/21/2024 3:34 PM [facility] Clinical Information Pelvic pain in female 05/21/2024 3:34 PM [facility] Microscopic Description Microscopic examination is performed. 05/21/2024 3:34 PM [facility] Gross Description A: The specimen is [...] lumen. No masses or lesions are identified. Registered Nursing Professor sections including the longitudinally bisected fimbria and [...] lumen. No masses or lesions are identified. Registered Nursing Professor sections including the longitudinally bisected fimbria and [...] aspects, 0.1-0.3 cm in greatest dimension. MYOMETRIUM: Varnado-brink, finally trabeculated, 2.1 cm thick LEIOMYOMA(TA): There is a 0.3 cm in greatest dimension subserosal nodule TISSUE SUBMISSION: Registered Nursing Professor sections are submitted in 9 cassettes. 1. Anterior cervix (12:00) 2. Posterior cervix (6:00) 3. Anterior endomyometrium interface with polyp 4. Posterior endomyometrium interface with polyp 5. Registered Nursing Professor nodule 6. Additional posterior fundal polyp 7. Registered Nursing Professor serosal surface with smooth patch on posterior aspect 8. 3:00 cervix 9. 9:00 cervix. 05/21/2024 3:34 PM GREENS OR GROUNDS SUPERINTENDENT [facility] Embedded Images 05/21/2024 3:34 PM [facility] Tissue ENTIRE RIGHT FALLOPIAN TUBE / Unknown 05/16/2024 8:46 AM GREENS OR GROUNDS SUPERINTENDENT 05/16/2024 9:19 AM GREENS OR GROUNDS SUPERINTENDENT Tissue specimen (specimen) ENTIRE LEFT FALLOPIAN TUBE / Unknown 05/16/2024 8:46 AM GREENS OR GROUNDS SUPERINTENDENT 05/16/2024 9:19 AM GREENS OR GROUNDS SUPERINTENDENT Tissue specimen (specimen) UTERINE STRUCTURE / Unknown 05/16/2024 9:13 AM GREENS OR GROUNDS SUPERINTENDENT 05/16/2024 9:19 AM GREENS OR GROUNDS SUPERINTENDENT Elli Warren MD LAB PATHOLOGY Performing Organization Address [facility] Co de Phone Number [address] * POCT urine (05/16/2024 7:03 AM GREENS OR GROUNDS SUPERINTENDENT) Urine Test - POC Negative Negative POCT Control Line Present, Clear Background - Internal control Yes POCT Cartridge Lot# [id number] POCT Urine 05/16/2024 7:03 AM GREENS OR GROUNDS SUPERINTENDENT Elli Warren MD ET POINT OF CARE EULA T ENTER/EDIT ORDERABLES Performing Organization Address [facility] de Phone Number POCT * Glucose, Whole Blood POCT (05/16/2024 6:59 AM GREENS OR GROUNDS SUPERINTENDENT) Glucose, Whole Blood 74 70 - 180 mg/dL 05/16/2024 7:01 AM [facility] Performing Location [facility] 05/16/2024 7:01 AM [facility] Blood 05/16/2024 6:59 AM GREENS OR GROUNDS SUPERINTENDENT 05/16/2024 7:01 AM GREENS OR GROUNDS SUPERINTENDENT Elli Warren MD LAB_1 Performing Organization Address [facility] Co de Phone Number [address] * Blood Type second draw (05/16/2024 6:49 AM GREENS OR GROUNDS SUPERINTENDENT) ABO B 05/16/2024 7:25 AM GREENS OR GROUNDS SUPERINTENDENT [facility] Positive 05/16/2024 7:25 AM GREENS OR GROUNDS SUPERINTENDENT [facility] Blood Venipuncture / Unknown 05/16/2024 6:49 AM GREENS OR GROUNDS SUPERINTENDENT 05/16/2024 6:56 AM GREENS OR GROUNDS SUPERINTENDENT Sandra King MD LAB_1 Performing Organization Address [facility] de Phone Number [facility] [address] * Antibody Screen (05/16/2024 6:41 AM GREENS OR GROUNDS SUPERINTENDENT) Antibody Screen Interpretation Negative 05/16/2024 7:32 AM GREENS OR GROUNDS SUPERINTENDENT [facility] Blood Venipuncture / Unknown 05/16/2024 6:41 AM GREENS OR GROUNDS SUPERINTENDENT 05/16/2024 6:53 AM GREENS OR GROUNDS SUPERINTENDENT Elli Warren MD LAB_1 Performing Organization Address [facility] Phone Number [facility] [address] [place] [address] * Blood Type (05/16/2024 6:41 AM GREENS OR GROUNDS SUPERINTENDENT) ABO B 05/16/2024 7:32 AM GREENS OR GROUNDS SUPERINTENDENT [facility] Positive 05/16/2024 7:32 AM GREENS OR GROUNDS SUPERINTENDENT [facility] Blood Venipuncture / Unknown 05/16/2024 6:41 AM GREENS OR GROUNDS SUPERINTENDENT 05/16/2024 6:53 AM GREENS OR GROUNDS SUPERINTENDENT Elli Warren MD LAB_1 Performing Organization Address [facility] Co de Phone Number [facility] [address] [place] [address] * Hemoglobin (05/16/2024 6:41 AM GREENS OR GROUNDS SUPERINTENDENT) Hemoglobin 15.1 12.0 - 15.5 g/dL 05/16/2024 6:58 AM GREENS OR GROUNDS SUPERINTENDENT [facility] Blood Venipuncture / Unknown 05/16/2024 6:41 AM GREENS OR GROUNDS SUPERINTENDENT 05/16/2024 6:53 AM GREENS OR GROUNDS SUPERINTENDENT Elli Warren MD LAB_[address] [address], [facility] documented in this encounter Visit Diagnoses Diagnosis [...] documented. Pascale Galeas RN 05/16/2024, 2:22 PM NS OR GROUNDS SUPERINTENDENT * Plan of Care - Neelima Nieves RN - 05/16/2024 10:49 AM CST I completed a full assessment and assessments as ordered and per policy on this patient during my work shift. Reassessments completed during my work shift are unchanged unless documented. NS OR GROUNDS SUPERINTENDENT documented in this encounter Admitting Diagnoses Diagnosis [...] at 2321, Intra-op Given 05/16/2024 9:40 AM GREENS OR GROUNDS SUPERINTENDENT 19 mL Wound Site calcium carbonate (TUMS) chewable tablet 1,000 mg 1,000 mg, Oral, ONCE, On Samia 05/16/24 at 1300, For 1 dose, Each tablet provides 200 mg elemental calcium Given 05/16/2024 1:05 PM GREENS OR GROUNDS SUPERINTENDENT 1,000 mg dexAMETHasone (DECADRON) injection 4-8 mg [...] (SUBLIMAZE) injection 25-50 mcg 25-50 mcg, Intravenous, [id number], Pain, Starting on Samia 05/16/24 at 0941, [...] , PACU (only) Given 05/16/2024 10:40 AM GREENS OR GROUNDS SUPERINTENDENT 25 mcg Given 05/16/2024 10:20 AM GREENS OR GROUNDS SUPERINTENDENT 25 mcg hydrALAZINE (APRESOLINE) injection 5 mg [...] mg, PACU (only) Given 05/16/2024 10:20 AM GREENS OR GROUNDS SUPERINTENDENT 0.2 mg hydrOXYzine pamoate (VISTARIL) capsule 25 [...] (NORMODYNE) injection 5 mg 5 mg, Intravenous, [id number], Blood Pressure >, Hypertension SBP greater than [...] at 0839, Intra-op Given 05/16/2024 8:39 AM GREENS OR GROUNDS SUPERINTENDENT 15 g Wound Site metoprolol tartrate (LOPRESSOR) injection 1-2 mg 1-2 mg, Intravenous, [id number], Other, htn, Starting on Samia 05/16/24 at [...] PACU & Post-op Given 05/16/2024 10:30 AM GREENS OR GROUNDS SUPERINTENDENT 1 Tablet documented in this encounter Active and Recently Administered Medications Times are shown in GREENS OR GROUNDS SUPERINTENDENT. Scheduled Medication Order 05/14/2024 05/15/2024 05/16/2024 calcium [...] (SUBLIMAZE) injection 25-50 mcg 25-50 mcg, Intravenous, [id number], Pain, Starting on Samia 24 at 0941, [...] (NORMODYNE) injection 5 mg 5 mg, Intravenous, [id number], Blood Pressure >, Hypertension SBP greater than [...] (LOPRESSOR) injection 1-2 mg 1-2 mg, Intravenous, [id number], Other, htn, Starting on Samia 05/16/24 at [...] tablets. documented in this encounter Care Teams Steno Typist Relationship Specialty Start Date End Date Ankita Shannon MD [address] [place] [address] PCP - General Family Practice 05/16/24 documented as of this encounter
--- OUTSIDE RECORDS SUMMARY | 2024-06-20 17:49 | XMS_ITS | Encounter Summary ---
Author Organization [facility] Address [address], [place] [address] Care Team Providers Care Director Of Plant Operations Name Role Phone Ankita Shannon MD Primary Care Provider +1- [phone] Reason for Visit * Reason Comments Follow-up bleeding Encounter Details Date Type Department Care Team (Late st Contact Info) Description 06/04/2024 Telephone [facility] [place] [address] Elli Warren MD [address] [place], [place] [id number] Follow-up (bleeding) Social History Tobacco Use Types [...] additional details and documentation. SEGUNDO VAUGHAN AH FOXER Triage 06/04/24 3:30 PM ICAL PHLEBOTOMIST * Keya Armendariz - 06/04/2024 3:27 PM [...] I can help you with today? No ICAL PHLEBOTOMIST documented in this encounter Plan of Treatment Not on file documented as of this encounter Visit Diagnoses Not on filedocumented in this encounter Care Teams Director Of Plant Operations Relationship Specialty Start Date End Date Ankita Shannon MD [address] [place] [address] PCP - General Family Practice 05/16/24 documented as of this encounter
== END 2024-06-20 18:16 | disposition home or self-care (01) ==
PROVIDERS: Emergency Provider Family Medicine
DX: R10.30 Lower abdominal pain, unspecified (principal); G89.18 Other acute postprocedural pain
CPT/HCPCS: 36415; 74177; 80048; 81001; 85025; 86140; 99284; J1885; J7030; Q9967

== ENCOUNTER 2024-11-14 09:00 | Outpatient (RCR) | payer BC, SELFPAY | END 2025-03-14 23:59 | disposition home or self-care (01) | PROVIDERS: Visit Provider Obstetrics & Gynecology | DX: R10.2 Pelvic and perineal pain (principal); R10.30 Lower abdominal pain, unspecified; M62.89 Other specified disorders of muscle; R39.198 Other difficulties with micturition; R35.0 Frequency of micturition; N80.9 Endometriosis, unspecified; Z51.89 Encounter for other specified aftercare | CPT/HCPCS: 97112; 97140; 97161; 97535 ==